=== PATIENT | male | born 1950 | race Caucasian/White ===

== ENCOUNTER 2019-09-18 10:13 | Day surgery (SDC) | payer MEDICARE, OTHER, SELFPAY ==
[2019-09-15 12:44] VITALS: BMI 29.0
--- NOTE | 2019-09-18 10:27 | P.ANESASSM_ITS ---
Pre-Anesthetic Assessment Pre-Anesthetic Assessment: Height/Weight: Height 1.8 m Weight 94.347 kg Preop Diagnosis: Colon CA screening Proposed Procedure: Operation Date: 09/18/19 12:00 Proposed Procedures p Colonoscopy 81614 Z12.11(Not Applicable) - Tex Barrientos MD Exam: Pre-Anes Outpt Exam: alert and oriented x 3 Airway: Submandibular: WNL Cervical ROM: WNL MP: 2 Dentition: False CV/HEM: CV/HEM: Angina (Stable), CAD and HTN Comments: CABG '10 NTG 3 weeks, Mable aware ,Mable saw 2 weeks no changes/concerns : : Chronic renal failure Comments: Dialysis 4 months, peritoneal last night Metabolic: Metabolic: DM Neuropsych: Comments: s/p bilateral CEAs PFSH Anesthesia PFSH: Social History Smoking and tobacco status: never smoked Second hand smoke exposure: No Alcohol intake: never Adopted: No Caregiver/support person: Yes Lives independently: Yes Household members: spouse Housing: House Marital status: Highest education level completed: High School Graduate service: Yes (3 years ) Current occupational status: retired History of recent travel: No Sexually active: No Current gender identity: Male María/Scientologist: Zoroastrian Special maría needs: No Agree to transfusion: No Financial difficulty paying for basics: Decline to Answer Data Anesthesia Cardiac Studies: No Data to Display
[2019-09-18 11:00] VITALS: BP 149/71; PULSE 60; RESP 18; TEMP 36.5; O2SAT 96
[2019-09-18] MEDS: sodium chloride 0.9% 1,000 ML 30 ML (11:10)
--- NOTE | 2019-09-18 11:56 | PM.HPUD ---
H&P update H&P Update: DATE OF SURGERY/PROCEDURE: 09/18/19 DATE H&P PERFORMED: 09/07/19 H&P UPDATE INFORMATION: H&P completed within last 30 days and No changes to prior documentation PREOP DIAGNOSIS: Screening colonoscopy PLANNED PROCEDURE: Operation Date: 09/18/19 12:00 Proposed Procedures p Colonoscopy 03553 Z12.11(Not Applicable) - Tex Barrientos MD Full H&P Perinent History: Medical/Surgical History: Medical History (Updated 09/08/19 @ 09:25 by Tex Barrientos MD) CAD (coronary artery disease) (Acute) COPD (chronic obstructive pulmonary disease) (Acute) Diabetes (Acute) Dyslipidemia (Acute) ESRD (end stage renal disease) (Acute) GERD (gastroesophageal reflux disease) (Acute) Hepatitis C (Acute) Hypertension (Acute) Neuropathy (Acute) Peritoneal dialysis status (Acute) started april of 2019 Sleep apnea (Acute) Family History: Family History (Updated 09/07/19 @ 11:02 by Carmina Longoria RN) Denies family history of Anesthesia complication Bleeding disorder Social History: Social History Smoking and tobacco status: never smoked Second hand smoke exposure: No Alcohol intake: never Adopted: No Caregiver/support person: Yes Lives independently: Yes Household members: spouse Housing: House Marital status: Highest education level completed: High School Graduate service: Yes (3 years ) Current occupational status: retired History of recent travel: No Sexually active: No Current gender identity: Male María/Anglican: Bahai Special maría needs: No Agree to transfusion: No Financial difficulty paying for basics: Decline to Answer
[2019-09-18 12:22] LABS: Glucose Point of Care 76 mg/dL (70-110)
[2019-09-18 12:37] VITALS: BP 125/60; PULSE 53; RESP 16; TEMP 36.5; O2SAT 98
[2019-09-18 12:50] VITALS: BP 129/61; PULSE 56; RESP 18; O2SAT 98
== END 2019-09-18 13:05 | disposition home or self-care (01) ==
PROVIDERS: Family Provider Family Medicine; PCP Family Medicine; Visit Provider Surgery
PROC: 0DJD8ZZ Inspection of Lower Intestinal Tract, Via Natural or Artificial Opening Endoscopic (ICD-10-PCS; CPT 45378; principal; 2019-09-18 12:00)
DX: Z12.11 Encounter for screening for malignant neoplasm of colon (principal); I25.10 Atherosclerotic heart disease of native coronary artery without angina pectoris; J44.9 Chronic obstructive pulmonary disease, unspecified; K21.9 Gastro-esophageal reflux disease without esophagitis; B17.10 Acute hepatitis C without hepatic coma; E11.40 Type 2 diabetes mellitus with diabetic neuropathy, unspecified; E11.22 Type 2 diabetes mellitus with diabetic chronic kidney disease; I12.0 Hypertensive chronic kidney disease with stage 5 chronic kidney disease or end stage renal disease; N18.6 End stage renal disease; G47.30 Sleep apnea, unspecified; Z95.1 Presence of aortocoronary bypass graft; Z79.4 Long term (current) use of insulin
CPT/HCPCS: 12345; 36416; 82962; G0121; J0694; J2001; J7030

== ENCOUNTER 2019-10-19 14:08 | Inpatient (IN) | payer MEDICARE, OTHER, SELFPAY ==
[2019-10-19] VITALS (11 sets, daily range): BP systolic 127–147; BP diastolic 63–77; PULSE 67–93; RESP 17–24; TEMP 36.9–37.2; O2SAT 94–97; BMI 29.7
--- NOTE | 2019-10-19 14:59 | ECG_ITS ---
Measurements Intervals [place] Rate: 69 P: 48 HI: 135 QRS: -70 QRSD: 137 T: 157 QT: 468 QTc: 502 SINUS RHYTHM RIGHT BUNDLE BRANCH BLOCK [120+ ms QRS DURATION, UPRIGHT V1, 40+ ms S IN I I/aVL/V4/V5/V6] LEFT ANTERIOR FASCICULAR BLOCK [QRS AXIS <= -45, QR IN I, RS IN II] SEPTAL MYOCARDIAL INFARCTION , OF INDETERMINATE AGE [40+ ms Q WAVE IN V1/V2] MODERATE T-WAVE ABNORMALITY, CONSIDER LATERAL ISCHEMIA [-0.1+ mV T WAVE IN I/ I/aVL/V5/V6] Compared to ECG 02/21/2015 09:57:13 Right bundle-branch block now present Left anterior fascicular block now present Myocardial infarct finding now present Possible ischemia still present Electronically Signed On 10-19-2019 16:59:50 ETHNOARCHAEOLOGIST by Larry Akins M.D. [email or web address]
--- NOTE | 2019-10-19 14:59 | XR_ITS ---
WS: [id number] XR chest 1V portable [id number] REASON FOR EXAM: cough FINDINGS: Along the mid lateral right chest is calcification of the pleura. There is evidence of a density in the region of the minor fissure suggesting a pseudotumor or low-gra de pneumonia. There is cardiomegaly seen There is previous coronary bypass changes. The hilum and apices are normal. XR/XR chest 1V portable 00000 IMPRESSION: Calcification of the pleura along the lateral mid chest A round density most likely an infiltrate versus pseudotumor adjacent to the mi nor fissure on the right.
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
[2019-10-19 15:37] LABS: ABG PH Result 7.41 (7.35-7.45); Arterial Blood Gas Hematocrit 33.6 % (42-52); Base Excess ABG -3.7 mmol/L (-2.0-2.0); Blood Gas Allen Test Pos; Blood Gas Sample Site Brachial, left; Blood Gas Sample Type Arterial; HCO3 ABG 20.2 mmol/L (22-26); Oxygen Device ROOM AIR; PO2 ABG 65.2 mmHg (80.0-100.0)
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
[2019-10-19 16:09] LABS: Influenza A by IFA Negative (Negative); Influenza B by IFA Negative (Negative)
[2019-10-19 16:34] LABS: Basophils % 0.4 %; Eosinophils # 0.1 10^3/uL (0.0-0.8); Hematocrit 29.6 % (42.0-52.0); Hemoglobin 9.4 g/dL (11.7-16.6); Lymphocytes % 18.5 %; Mean Corpuscular HGB Conc 31.8 g/dL (30.0-36.0); Mean Corpuscular Hemoglobin 28.7 pg (28.0-34.0); Mean Corpuscular Volume 90.5 fL (80-94); Mean Platelet Volume 10.7 fL (7.4-10.4); Monocytes # 0.3 10^3/uL (0.2-0.9); Monocytes % 5.8 %; Neutrophils # 3.8 10^3/uL (1.8-7.7); Neutrophils % 73.9 %; Nucleated Red Blood Cells % 0 %; Platelet Count 214 10^3/cmm (130-400); Red Blood Count 3.27 10^6/uL (4.1-5.3); Red Cell Distribution Width 13.4 % (12.1-15.1); White Blood Count 5.2 10^3/uL (4.0-10.0)
[2019-10-19 16:56] LABS: Troponin(5th) Baseline 501 ng/mL (0-15)
--- NOTE | 2019-10-19 16:59 | ECG_ITS ---
Measurements Intervals [place] Rate: 67 P: 39 AL: 144 QRS: -63 QRSD: 137 T: 147 QT: 462 QTc: 489 SINUS RHYTHM RIGHT BUNDLE BRANCH BLOCK LEFT ANTERIOR FASCICULAR BLOCK SEPTAL MYOCARDIAL INFARCTION , OF INDETERMINATE AGE MODERATE T-WAVE ABNORMALITY, CONSIDER LATERAL ISCHEMIA Compared to ECG 10/19/2019 15:30:07 No significant changes Electronically Signed On 10-20-2019 15:52:48 PUBLIC WORKS SUPERVISOR by Nella Montoya M.D. [email or web address]
[2019-10-19 17:16] LABS: Alanine Aminotransferase 21 U/L (0-41); Albumin Level 4.3 g/dL (3.5-5.2); Alkaline Phosphatase 81 IU/L (40-130); Anion Gap 24.5 (5-19); Aspartate Amino Transferase 20 U/L (0-40); Blood Urea Nitrogen 76 mg/dL (8-23); Carbon Dioxide 17 mmol/L (22-29); Chloride 100 mmol/L (98-107); Globulin 2.4 g/dL (1.3-4.6); Glomerular Filtration Rate 7.4 mL/min (90-130); Glucose 187 mg/dL (65-115); Potassium 4.5 mmol/L (3.5-5.1); Sodium 137 mmol/L (136-145); Total Bilirubin 0.7 mg/dL (0.15-1.2); Total Protein 6.7 g/dL (6.6-8.7)
--- NOTE | 2019-10-19 17:22 | PC.NURSE ---
Lab called to report a critical gasateria attendant of 7.4
[2019-10-19] MEDS: aspirin 325 mg Tablet PO (17:42)
[2019-10-19] MEDS: nitroglycerin 1 gm/inch oint Pkt 1 INCH TOPICAL (17:43)
[2019-10-19 17:51] LABS: NT Pro B Type Natriuretic Pept > 35000 pg/mL (0-125)
--- NOTE | 2019-10-19 18:37 | PM.CONSULT ---
Providers/Reason For Consult Consulting Physican/Specialty*: Dr. Montoya, cardiology Reason for Consult*: Worsening shortness of breath and chest discomfort, history of coronary artery disease. Attending Physician: Mark Vinson MD Primary Care Provider: Dany Dietz Jr, MD History of Present Illness History of Present Illness Sherwin Yates is a 69 year old male with past medical history of coronary artery disease status post bypass surgery by Dr. Metz in 2009, end-stage renal disease on peritoneal dialysis currently being evaluated for renal transplant at [facility], carotid artery disease status post bilateral carotid endarterectomy, COPD, obstructive sleep apnea on CPAP, gastroesophageal reflux disease history of hepatitis C, hypertension, diabetes mellitus and history of CVA. As a part of transplant work-up, patient underwent stress testing this Wednesday. He had flu like symptoms last Wednesday with fever, chills, runny nose and then Wednesday onwards he started having worsening SOB. He complains of leg edema, exertional dyspnea even when walking to the bathroom and orthopnea that progressively worsened in last 3-4 days. He has been sleeping in recliner for last week. He also had intermittent episodes of exertional chest pains over the past week. He resisted coming to the hospital and today came to the ER after his family made him. EKG showed sinus rhythm, RBBB, LAFB and T wave abnormality, concerning for lateral ischemia. Baseline troponin >500. I have been asked to evaluate the patient and assist in further management. Review of Systems Const: Denies: fever or chills Eyes: Denies: blurry vision ENMT: Denies: nasal congestion or nasal obstruction Card: Reports: chest pain, swelling of feet/ankles, shortness of breath on exertion and shortness of breath when lying down; Denies: irregular heart rhythm Resp: Denies: shortness of breath, productive cough or non-productive cough GI: Denies: abdominal pain, nausea, vomiting, vomiting blood, blood in stool or black tarry stool : Denies: difficulty urinating, painful urination or blood in urine Musc: Reports: extremity swelling Skin/Breast: Denies: rash Neuro: Denies: numbness in extremities, weakness in extremities or slurred speech Psych: Denies: anxiety or depression Endo: Denies: change in body appearance Lanre/Lymph: Denies: petechiae or purpura All/Imm: Denies: throat swelling or tongue swelling Meds/Allergies Home Medications and Allergies Home Medications Medication Instructions Recorded Confirmed Type ascorbic acid (vitamin C) 100 mg PO DAILY 09/05/19 10/19/19 History doxazosin 1 mg tablet 2 mg PO BID tab 09/05/19 10/19/19 History famotidine 20 mg tablet 20 mg PO DAILY 09/05/19 10/19/19 History furosemide 40 mg tablet 40 mg PO DAILY 09/05/19 10/19/19 History insulin glargine 100 unit/mL 20 unit SUBCUT DAILY 09/05/19 10/19/19 History subcutaneous solution metoprolol tartrate 50 mg tablet 50 mg PO BID 09/05/19 10/19/19 History nifedipine 90 mg tablet,extended 90 mg PO BID 09/05/19 10/19/19 History release nitroglycerin 0.4 mg sublingual 0.4 mg SUBLINGUAL Q5M PRN 09/05/19 10/19/19 History tablet sevelamer HCl 800 mg tablet 800 mg PO TID tab 09/05/19 10/19/19 History simvastatin 40 mg tablet 40 mg PO DAILY 09/05/19 10/19/19 History spironolactone 25 mg tablet 50 mg PO BID 09/05/19 10/19/19 History terazosin 5 mg capsule 5 mg PO DAILY 09/05/19 10/19/19 History clonidine HCl 0.3 mg PO BID PRN 09/15/19 10/19/19 History minoxidil 2.5 mg PO BID 10/19/19 10/19/19 History pregabalin [Lyrica] 25 mg PO BID 10/19/19 10/19/19 History vit B cqslpez-M-tefoq ac-zinc 1 tab PO DAILY 10/19/19 10/19/19 History [RenaPlex] Allergies Allergy/AdvReac Type Severity Reaction Status Date / Time duloxetine [From Cymbalta] Allergy Unknown Unknown Verified 10/19/19 20:33 acetaminophen Allergy Unknown Verified 10/19/19 20:33 trazodone Allergy ADR-Cramping Verified 10/19/19 20:33 of the Muscles PFSH Acute PFSH: Medical History CAD (coronary artery disease) COPD (chronic obstructive pulmonary disease) Diabetes Dyslipidemia ESRD (end stage renal disease) GERD (gastroesophageal reflux disease) Hepatitis C Hypertension Neuropathy Peritoneal dialysis status started april of 2019 Sleep apnea Surgical History History of carotid endarterectomy Bilateral History of colonoscopy with polypectomy Patient had a normal colonoscopy he will not require further screening colonoscopies due to his age of 69. History of coronary artery bypass graft Family History Denies family history of Anesthesia complication Bleeding disorder Social History Smoking and tobacco status: never smoked Second hand smoke exposure: No Alcohol intake: never Adopted: No Caregiver/support person: Yes Lives independently: Yes Household members: spouse Housing: House Marital status: Highest education level completed: High School Graduate service: Yes (3 years ) Current occupational status: retired History of recent travel: No Sexually active: No Current gender identity: Male María/Jainism: Latter-Day Special maría needs: No Agree to transfusion: No Financial difficulty paying for basics: Decline to Answer Vitals/I&O/Wt Last Vital Signs Temp 99.0 F 10/19/19 14:26 Pulse 70 10/19/19 14:26 Resp 17 10/19/19 16:09 BP 131/67 10/19/19 17:00 Pulse Ox 97 10/19/19 17:00 Weight last 48 hrs Weight 207 lb Physical Exam Narrative: EXAM NARRATIVE: Gen: NAD, sitting propped up in bed Neck: JVD+ HEENT: PERRL, No pallor or icterus RS: Decreased breath sounds bilateral bases (L>R) No wheezes, rales or rhonchi, reproducible left lower chest pain present CVS: S1, S2+, No murmur, rub or gallop appreciated GI: soft, NT, ND+, distended 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: AAOx 3, NO FND Ext: trace-1+ edema bilateral legs; left upper extremity deformity+ Data Labs: Other Labs: Laboratory Tests 10/19/19 10/19/19 10/19/19 15:25 16:26 16:26 ABG pH 7.41 ABG pCO2 32.0 L ABG pO2 65.2 L ABG HCO3 20.2 L Hematocrit 33.6 L O2 Delivery Device Room air Troponin T Baselin e 501 H* NT-Pro-B Natriuret Pep > 00222 H Micro: Micro: Microbiology 10/19/19 16:26 Blood Culture - Pr eliminary Blood SPECIMEN [facility] 10/19/19 15:25 Blood Culture - Pr eliminary Blood SPECIMEN [facility] Imaging^: Carotid Duplex (03/16/19): Radiologist's impression: CONCLUSIONS? ?Prior Bilateral CEA's? ?No recurrent stenosis.? ?Right ICA stenosis <50%.?? ?Left ICA stenosis <50%.?? ?Normal antegrade Doppler flow noted in the left vertebral?? ?artery.?? ?Right vertebral not visualized? Lexiscan MPI (03/14/18): Radiologist's impression: PERFUSION FINDINGS? ?Patchy area of decreased tracer uptake? noted from basal to anterior wall?? ?suggestive of old myocardial infarction versus scarring or artifact? ?FUNCTIONAL RESULTS? (calculated via Gated SPECT)? ? Stress Image LV EF (%):??? 68? ? Stress EDV (mL):93? TID:? 0.82? ? Stress ESV (mL):30? ? Rest Image LV EF (%): 68? ?FUNCTIONAL FINDINGS:? ?There is normal left ventricular systolic function.? ?IMPRESSIONS? ?Medium-size area of patchy decreased tracer uptake? noted from basal to?? ?anterior wall suggestive of old myocardial infarction versus artifact.? This?? ?study is negative for ischemia.? There is no wall motion abnormality.? EKG?? ?segment will be documented separately? CT Chest: Radiologist's impression: IMPRESSION: 1. There is reticular and mild ground-glass opacity in the lungs right greater than left compatible with mild pneumonitis/interstitial edema and volume loss. 2. Small pleural effusions left greater than right. There is loculated fluid in the right fissure creating a pseudo tumor. 3. Volume loss and mild ground-glass pneumonitis is noted. 4. There is mild ascites. EKG^: EKG 1: My Interpretation: Sinus rhythm. Right bundle branch block. Left anterior fascicular block. Moderate T wave abnormality consider, lateral ischemia. When compared to his old EKGs patient has had ST depressions and T wave inversions aVL and V4 even his prior EKGs intermittently. T wave inversion in 1, V5 and V6 appear to be new. A&P Assessment and plan (1) Congestive heart failure: SOB and chest pain likely in setting of decompensated CHF and fluid overload. -continue lasix 40 mg IV twice a day. Received Lasix 60 mg IV yesterday. He is still making urine and continue with PD. -f/u on echo. Status: Acute Qualifiers: Heart failure type: unspecified Code(s): I50.9 - Heart failure, unspecified (2) Chest pain: Exertional dyspnea with chest pain likely in setting of decompensated CHF. -I do not think this is ACS. However, continue to trend troponin and serial EKG's and further management based on that. -Continue aspirin, statin, metoprolol and nitroglycerin as needed. -Follow-up on echocardiogram. Status: Acute Code(s): R07.9 - Chest pain, unspecified (3) ESRD (end stage renal disease): PD as per nephrology Status: Acute Code(s): N18.6 - End stage renal disease (4) CAD (coronary artery disease): History of Coronary artery bypass grafting times three with left in situ internal mammary artery graft to the left anterior descending coronary artery and reverse saphenous vein bypass graft from the aorta to the posterior descending coronary artery and reverse saphenous vein bypass graft from the aorta to the diagonal II coronary artery in 05/2010. Status: Acute Qualifiers: Coronary Disease-Associated Artery/Lesion type: bypass graft [place] vs. transplanted heart: nome heart Code(s): I25.10 - Atherosclerotic heart disease of [place] coronary artery without angina pectoris (5) Dyslipidemia: Status: Acute Code(s): E78.5 - Hyperlipidemia, unspecified (6) Hypertension: Status: Acute Qualifiers: Hypertension type: essential hypertension Qualified Code(s): I10 - Essential (primary) hypertension Code(s): I10 - Essential (primary) hypertension (7) Diabetes: Status: Acute Code(s): E11.9 - Type 2 diabetes mellitus without complications Additional A&P Information Non-ST elevation HI with elevated troponin likely type 2in setting of d CHF and ESRD. [facility] [place] Consult Attestations Medical Necessity Statement: Patient needs hospital stay for management of decompensated congestive heart failure and chest pain. 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 transplanted heart: nome heart Dyslipidemia E78.5 Hypertension I10 Hypertension type: essential hypertension Diabetes E11.9
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
[2019-10-19 19:07] LABS: Troponin 5 2HR Delta -23.7 ABS# (0-10)
[2019-10-19 19:08] LABS: Troponin 5 2HR 477.3 ng/mL (0-15)
--- NOTE | 2019-10-19 19:09 | PC.NURSE ---
critical trop 477.3 reported by Hetal in lab at this time
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
--- NOTE | 2019-10-19 19:29 | PC.NURSE ---
Introduced self to patient and initiated vital signs. Patient presents A&O x 4. NAD, ABCs intact, MAEW and agreeable to treatment. Respirations are even and unlabored. Pt states that the chief complaint for the ER visit today is due to shortness of breath, but SOB has resolved and is feeling better. IV observed in left AC and flushed for patency. Pt denies any vision disturbances or lightheadedness. Bed left in lowest position in semi-fowlers with side rails up. Reassured patient of needs and will continue to monitor.
--- NOTE | 2019-10-19 20:01 | PC.NURSE ---
d-stick = 144 mg/dl
[2019-10-19 20:02] LABS: Glucose Point of Care 144 mg/dL (70-110)
[2019-10-19] MEDS: heparin 5,000 unit/mL INJ 1 mL 5000 UNIT SUBCUT (20:34)
[2019-10-19] MEDS: atorvastatin 40 mg Tablet 20 MG PO (20:34)
[2019-10-19] MEDS: FUROsemide 10 mg/mL SDV 10mL 60 MG IVP (20:35)
--- NOTE | 2019-10-19 20:59 | ECG_ITS ---
Measurements Intervals [place] Rate: 82 P: 44 MD: 140 QRS: -66 QRSD: 134 T: 124 QT: 424 QTc: 497 SINUS RHYTHM RIGHT BUNDLE BRANCH BLOCK LEFT ANTERIOR FASCICULAR BLOCK LEFT VENTRICULAR HYPERTROPHY AND ST-T CHANGE Compared to ECG 10/19/2019 15:30:07 Left ventricular hypertrophy now present ST (T wave) deviation now present T-wave abnormality no longer present Possible ischemia no longer present Electronically Signed On 10-20-2019 15:39:31 FISHER WEIR by Nella Montoya M.D. [id number]
[2019-10-19 21:53] LABS: Glucose Point of Care 137 mg/dL (70-110)
--- NOTE | 2019-10-19 22:22 | PC.NURSE ---
Patient arrived to the floor from the ED after report was received via phone. Patient is alert and oriented and ambulatory. Patient is not complaining of any pain or shortness of breath. VSS. Patient's dialysate fluid drained per order. Patient stated I hope I don't get peritonitis. Nurse asked why. Patient states you didn't clean it. Nurse educated patient that it was cleaned and he asked with what I don't see anything. Nurse showed him the bleach wipe and educated. Patient states oh, that doesn't look anything like what I use at home. JOSE [place] at bedside as well. Will continue to monitor.
[2019-10-19 22:33] LABS: C Reactive Protein 17.7 mg/L (0.0-4.9)
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
[2019-10-19 22:44] LABS: Thyroid Stimulating Hormone 2.02 uIU/mL (0.27-4.20)
[2019-10-19 22:46] LABS: Troponin 5 6HR 517.5 ng/mL (0-15); Troponin 5 6HR Delta 16.5 ng/L (0-12)
--- NOTE | 2019-10-19 22:52 | PC.NURSE ---
DR SANCHEZ WAS NOTIFIED OF A CRITICAL TROPONIN. DR SAID THAT THEY WILL LOOK INTO IT. WILL CONTINUE TO MONITOR.
[2019-10-19 23:32] LABS: Platelet Count 230 10^3/cmm (130-400)
[2019-10-19 23:38] LABS: Partial Thromboplastin Time 31.6 SECONDS (23.9-36.7)
[2019-10-19] MEDS: heparin drip 25,000 UNIT/500 ML PREMIX 26 UNIT IV (23:43)
[2019-10-19] MEDS: cloNIDine 0.1 mg Tablet 0.2 MG PO (23:57)
[2019-10-20] VITALS (66 sets, daily range): BP systolic 103–159; BP diastolic 52–81; PULSE 54–95; RESP 13–37; TEMP 36.5–37; O2SAT 89–99
[2019-10-20] MEDS: nitroglycerin 0.4 mg sublingual Tablet SUBLINGUAL ×3 (00:38→04:06)
--- NOTE | 2019-10-20 00:44 | PC.NURSE ---
Patient was complaining of chest pain 3/. Nitro SL given and patient stated his chest pain is gone now. VSS. Will continue to monitor.
[2019-10-20 00:53] LABS: Procalcitonin 0.15 ng/mL (0-0.5)
--- NOTE | 2019-10-20 01:32 | ECG_ITS ---
Measurements Intervals [place] Rate: 81 P: 11 CA: 134 QRS: -67 QRSD: 146 T: 111 QT: 439 QTc: 511 SINUS RHYTHM RIGHT BUNDLE BRANCH BLOCK LEFT ANTERIOR FASCICULAR BLOCK LEFT VENTRICULAR HYPERTROPHY AND ST-T CHANGE T WAVE ABNORMALITY, CONSIDER LATERAL ISCHEMIA Compared to ECG 10/19/2019 15:30:07 Left ventricular hypertrophy now present Electronically Signed On 10-20-2019 16:47:56 BOAT GARNISHER by Nella Montoya M.D. [id number]
--- NOTE | 2019-10-20 01:35 | PC.NURSE ---
patient complained of chest pain at a 3/10 again, bp was taken at 159/72, hr 76. One sublingual nitro given, pain gone in 3 minutes, patient stated no pain Vitals taken, hr 80, bp 103/52, resp 23, o2 92. EKG ordered to check for changes.
--- NOTE | 2019-10-20 01:55 | PC.NURSE ---
Dr. Aguirre notified of patient having a second episode of chest pain. SL nitro relieved chest pain this time as well.
--- NOTE | 2019-10-20 04:07 | PC.NURSE ---
This is the worst chest pain so far 11/23, Nitro given, beginning blood pressure was 148/78.
--- NOTE | 2019-10-20 04:11 | PC.NURSE ---
Dr. Aguirre notified of patient experiencing a third episode of chest pain stating this is the worst it has been
--- NOTE | 2019-10-20 04:18 | PC.NURSE ---
Dr. Aguirre came to room to see patient. Blood pressure is 130/81. Nitropaste 1 inch q6 hour ordered.
[2019-10-20] MEDS: nitroglycerin 1 gm/inch oint Pkt 1 INCH TOPICAL ×4 (04:23→21:30)
[2019-10-20 06:15] LABS: Basophils % 0.3 %; Eosinophils # 0.1 10^3/uL (0.0-0.8); Hematocrit 29.6 % (42.0-52.0); Hemoglobin 9.7 g/dL (11.7-16.6); Lymphocytes # 0.8 10^3/uL (0.8-4.8); Lymphocytes % 13.5 %; Mean Corpuscular HGB Conc 32.8 g/dL (30.0-36.0); Mean Corpuscular Hemoglobin 29.1 pg (28.0-34.0); Mean Corpuscular Volume 88.9 fL (80-94); Mean Platelet Volume 10.5 fL (7.4-10.4); Monocytes # 0.3 10^3/uL (0.2-0.9); Monocytes % 5.2 %; Neutrophils # 4.6 10^3/uL (1.8-7.7); Neutrophils % 79.7 %; Nucleated Red Blood Cells % 0 %; Platelet Count 219 10^3/cmm (130-400); Red Blood Count 3.33 10^6/uL (4.1-5.3); Red Cell Distribution Width 13.1 % (12.1-15.1); White Blood Count 5.8 10^3/uL (4.0-10.0)
[2019-10-20 06:27] LABS: Partial Thromboplastin Time 68.9 SECONDS (23.9-36.7)
[2019-10-20 06:33] LABS: Glucose Point of Care 171 mg/dL (70-110)
[2019-10-20 06:37] LABS: Alanine Aminotransferase 25 U/L (0-41); Albumin Level 4.1 g/dL (3.5-5.2); Alkaline Phosphatase 78 IU/L (40-130); Anion Gap 22.9 (5-19); Aspartate Amino Transferase 26 U/L (0-40); Blood Urea Nitrogen 69 mg/dL (8-23); Calcium 10.2 mg/dL (8.5-10.5); Carbon Dioxide 19 mmol/L (22-29); Chloride 102 mmol/L (98-107); Cholesterol 98 mg/dL (0-200); Globulin 3.6 g/dL (1.3-4.6); Glomerular Filtration Rate 7.2 mL/min (90-130); Glucose 181 mg/dL (65-115); HDL Cholesterol 28 mg/dL (60-100); LDL Cholesterol Calculated 41 mg/dL (50-129); LDL HDL Ratio 1.46 RATIO (0.00-3.22); Magnesium 2.5 mg/dL (1.7-2.3); Phosphorus 5.3 mg/dL (2.5-4.5); Potassium 4.9 mmol/L (3.5-5.1); Sodium 139 mmol/L (136-145); Total Bilirubin 0.7 mg/dL (0.15-1.2); Total Protein 7.7 g/dL (6.6-8.7); Triglycerides 143 mg/dL (0-150)
[2019-10-20 07:02] LABS: Estmated Average Glucose 134; Hemoglobin A1C 6.3 % (4.0-6.0)
--- NOTE | 2019-10-20 07:12 | ECG_ITS ---
Measurements Intervals [place] Rate: 81 P: 21 AL: 134 QRS: -65 QRSD: 144 T: 110 QT: 425 QTc: 494 SINUS RHYTHM RIGHT BUNDLE BRANCH BLOCK LEFT ANTERIOR FASCICULAR BLOCK LEFT VENTRICULAR HYPERTROPHY AND ST-T CHANGE POSSIBLE LATERAL MYOCARDIAL INFARCTION, OF INDETERMINATE AGE Compared to ECG 10/19/2019 15:30:07 Left ventricular hypertrophy now present Myocardial infarct finding still present Electronically Signed On 10-20-2019 16:45:34 PICK AND SHOVEL WORKER by Nella Montoya M.D. [id number]
--- NOTE | 2019-10-20 07:26 | PC.NURSE ---
patient complaints of chest pain and pressure patient sitting on side of bed leaned forward labored breathing noted ekg obtained patient is unable to rate pain o2 placed by RT o2 89% on room air Heart rate 80 bp 154/[address] Vinson of events new orders to start nitro drip per protocol
--- NOTE | 2019-10-20 07:30 | PC.NURSE ---
upon entering room patient was sitting up on side of bed with elbows on knees with complaints of increased SOB and chest pain at first glance patient is having labored breathing and grasping chest EKG performed vital signs obtained Dr. pritchett notifed instructions given start nitro drip per protocol
--- NOTE | 2019-10-20 07:40 | PC.NURSE ---
Dr leggett at bedside verbal orders given to not start nitro drip and start imdur 30 mg PO daily
[2019-10-20] MEDS: doxazosin 4 mg Tablet 2 MG PO ×2 (08:47→17:54)
[2019-10-20] MEDS: aspirin 325 mg Tablet PO (08:47)
[2019-10-20] MEDS: FUROsemide 10 mg/mL SDV 4mL 40 MG IVP ×2 (08:48→17:55)
[2019-10-20] MEDS: famotidine 20 mg Tablet PO (08:48)
[2019-10-20] MEDS: metoprolol tartrate 25 mg Tablet PO (08:48)
[2019-10-20] MEDS: spironolactone 25 mg Tablet PO ×2 (08:48→17:54)
[2019-10-20] MEDS: pregabalin 25 mg Capsule PO ×2 (08:48→17:53)
[2019-10-20] MEDS: isosorbide mononitrate ER 30 mg Tablet PO ×2 (09:24→17:54)
[2019-10-20] MEDS: doxycycline 100 mg Tablet PO ×2 (11:05→21:29)
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
[2019-10-20 11:52] LABS: Glucose Point of Care 144 mg/dL (70-110)
--- NOTE | 2019-10-20 12:28 | PC.RESP ---
Patient given information on Pulmonary Rehab.
[2019-10-20] MEDS: Dianeal low Ca w/2.5% dex 2,000 mL Bag 2000 ML INTRAPERIT ×2 (13:20→22:43)
[2019-10-20 13:47] LABS: Partial Thromboplastin Time 83.1 SECONDS (23.9-36.7)
--- NOTE | 2019-10-20 15:53 | PM.PN ---
Subjective Subjective: Interval history: This morning patient sitting up in bed, family at bedside, states that he had couple episodes of chest pain overnight, a couple episodes of shortness of breath, no lightheadedness, no dizziness, no nausea, no vomiting Vitals/I&O/Wt Last Vital Signs Temp 98.3 F 10/20/19 15:00 Pulse 78 10/20/19 15:00 Resp 16 10/20/19 15:00 BP 134/69 10/20/19 15:00 Pulse Ox 98 10/20/19 15:00 10/20/19 10/20/19 10/20/19 06:59 14:59 22:59 Intake Total 400 / 400 240 / 240 Balance 400 / 400 240 / 240 Weight last 48 hrs Weight 93.894 kg Physical Exam Const: COMMON NORMALS: no apparent distress and oriented x3 HENMT: COMMON NORMALS: normocephalic HEAD & SCALP: normocephalic Neck/C-Spine: COMMON NORMALS: no JVD Resp: COMMON NORMALS: normal respiratory effort, no retractions, no use of accessory muscles and clear to auscultation bilaterally AUSCULTATION: clear to auscultation bilaterally Cardio: COMMON NORMALS: no JVD, regular rate, regular rhythm, S1 normal heart sound and S2 normal heart sound RATE: regular rate RHYTHM: regular rhythm HEART SOUNDS: S1 normal and S2 normal GI: COMMON NORMALS: normal to inspection, nondistended, normoactive bowel sounds, soft to palpation, non-tender, no hepatosplenomegaly, no masses and no bruits PALPATION: Yes soft and Yes no hepatosplenomegaly Extremity: COMMON NORMALS: normal capillary refill, no clubbing, cyanosis or edema, no calf tenderness and no pedal edema Neuro: COMMON NORMALS: oriented x3 Psych: COMMON NORMALS: mental status grossly normal Data : 10/20/19 06:05 10/20/19 06:05 Micro: Microbiology 10/19/19 15:25 Blood Culture - Preliminary Blood NEGATIVE TO DATE 10/19/19 16:26 Blood Culture - Preliminary Blood SPECIMEN COLLECTED A&P Assessment and plan (1) Acute respiratory failure: -Likely secondary to CHF exacerbation as BNP is 35,000, CT chest shows bilateral pleural effusions -Unlikely pneumonia, as no significant leukocytosis, pro-Arley is 0.5, -CT chest does show bilateral groundglass opacities, possibly atypical pneumonia versus viral infection, antibiotics for now, and as patient is doing well, patient is requiring 2 L of oxygen, lungs are clear Plan: -Cardiology and nephrology plan on increasing PD -Fluid restriction 1500 cc -Lasix 40 IV twice daily -I have added doxycycline as chest x-ray shows groundglass opacities,, cover for atypical pneumonia -Daily weights, monitor urine output -Potassium supplementation Status: Acute Code(s): J96.00 - Acute respiratory failure, unspecified whether with hypoxia or hypercapnia (2) Chest pain: -History of CABG x3 -Patient symptomatology seem concerning for cardiac etiology -Baseline troponin is 500, creatinine is 7.2 -EKG shows significant T wave inversions in lateral leads,and anterior leads -Last episode of chest pain was this morning -Last stress test in 2018 low probability of obstructive CAD stress test at [facility] shows low probability of CAD Plan: -Admit to cardiac IMC -Aspirin, statin, beta-casie -Baseline troponin V 500, delta 16.5, EKG does show T wave inversions in the lateral leads and anterior leads -Nitro for chest. -Echocardiogram pending -Cardiology and nephrology is planning on increasing PD dialysis, if patient continues to have chest pain, plan for cardiac catheterization tomorrow morning Status: Acute Code(s): R07.9 - Chest pain, unspecified (3) Peritoneal dialysis status: -Nephrology has been consulted for peritoneal dialysis Status: Acute Code(s): Z99.2 - Dependence on renal dialysis (4) Hypertension: Status: Acute Qualifiers: Hypertension type: essential hypertension Qualified Code(s): I10 - Essential (primary) hypertension Code(s): I10 - Essential (primary) hypertension (5) ESRD (end stage renal disease): Status: Acute Code(s): N18.6 - End stage renal disease (6) Dyslipidemia: Status: Acute Code(s): E78.5 - Hyperlipidemia, unspecified (7) Diabetes: -Low-dose sliding scale, plus glargine 20 units daily Status: Acute Code(s): E11.9 - Type 2 diabetes mellitus without complications (8) CAD (coronary artery disease): CABG x3 Status: Acute Qualifiers: Coronary Disease-Associated Artery/Lesion type: bypass graft [place] vs. transplanted heart: [place] heart Code(s): I25.10 - Atherosclerotic heart disease of [place] coronary artery without angina pectoris Attestations Medical Necessity Statement*: She requires hospitalization due to acute respiratory failure, chest pain Coding Level of Care Code Acute Principal Associate for Ines Fwd Diagnoses Acute respiratory failure J96.00 Chest pain R07.9 Peritoneal dialysis status Z99.2 Hypertension I10 Hypertension type: essential hypertension ESRD (end stage renal disease) N18.6 Dyslipidemia E78.5 Diabetes E11.9 CAD (coronary artery disease) I25.10 Coronary Disease-Associated Artery/Lesion type: bypass graft [place] vs. transplanted heart: [place] heart
--- NOTE | 2019-10-20 16:17 | P.PN_ITS ---
Subjective Subjective: Interval history: Overnight it seems like patient and has had intermittent episodes of shortness of breath with chest discomfort. Patient states he was unable to get comfortable and had to lean forward in his bed to catch his breath. No productive cough. Orthopnea present. He was started on heparin drip. He has not urinated much overnight. Records obtained from [facility] in [place]. Rest stress PET rMPI showed nonischemic EKG response with no definitive ischemia or infarction. Poor technical quality images. Large with globally hypokinetic left ventricle with ejection fraction of 36%. Large right ventricle that was globally hypokinetic as well. At the time of evaluation, patient complains of dull chest discomfort and is sitting comfortably in bed. He mentions today that over the past month his episodes of chest discomfort have progressively increased and he has been using more nitroglycerin than normal. The symptoms are usually exertional and used to happen even prior to past week. Medications: Reviewed: Yes Medication Review Details: Current Medications Aspirin (Aspirin) 325 mg PO DAILY [facility] Last Admin: 10/20/19 08:47 Dose: 325 mg Documented by: Atorvastatin Calcium (Lipitor) 20 mg PO BEDTIME [facility] Last Admin: 10/19/19 20:34 Dose: 20 mg Documented by: Clonidine HCl (Catapres) 0.2 mg PO BID [facility] Last Admin: 10/20/19 08:48 Dose: Not Given Documented by: Dextrose (D50w) 25 ml IVP ONCE PRN; Protocol PRN Reason: hypoglycemia protocol Dextrose (D50w) 50 ml IVP PRN PRN; Protocol PRN Reason: hypoglycemia protocol Doxazosin Mesylate (Cardura) 2 mg PO BID [facility] Last Admin: 10/20/19 08:47 Dose: 2 mg Documented by: Doxycycline Monohydrate (Vibramycin) 100 mg PO Q12H [facility] Last Admin: 10/20/19 11:05 Dose: 100 mg Documented by: Famotidine (Pepcid Tab) 20 mg PO DAILY [facility] Last Admin: 10/20/19 08:48 Dose: 20 mg Documented by: Furosemide (Lasix) 40 mg IVP BID [facility] Last Admin: 10/20/19 08:48 Dose: 40 mg Documented by: Glucagon (Glucagen) 1 mg IM ONCE PRN; Protocol PRN Reason: Adult Acute Hypoglycemia Prot. Heparin Sodium (Beef Lung) (Heparin) 0 unit IV PRN PRN; Protocol PRN Reason: Heparin weight-base protocol Dextrose (D5w) 500 mls @ 100 mls/hr IV ONCE PRN; Protocol PRN Reason: Adult Acute Hypoglycemia Prot Heparin Sodium/Sodium Chloride (Heparin Drip) 25,000 unit in 500 mls @ 0 mls/hr IV .Q0M [facility]; Protocol Last Admin: 10/19/19 23:43 Dose: 13.85 unit/kg/hr, 26 mls/hr Documented by: Nitroglycerin/Dextrose (Nitroglycerin Drip) 50 mg in 250 mls @ 0 mls/hr IV .Q0M WOO; Protocol Insulin Aspart (Novolog) 0 unit SUBCUT TIDWM [facility]; Protocol Last Admin: 10/20/19 13:01 Dose: 2 unit Documented by: Insulin Glargine (Lantus) 20 unit SUBCUT DAILY [facility] Last Admin: 10/20/19 11:09 Dose: Not Given Documented by: Isosorbide Mononitrate (Imdur) 30 mg PO DAILY [facility] Last Admin: 10/20/19 09:24 Dose: 30 mg Documented by: Metoprolol Tartrate (Lopressor) 25 mg PO BID [facility] Last Admin: 10/20/19 08:48 Dose: 25 mg Documented by: Nitroglycerin (Nitrostat) 0.4 mg SUBLINGUAL Q5M PRN PRN Reason: Chest Pain Last Admin: 10/20/19 04:06 Dose: 0.4 mg Documented by: Nitroglycerin (Nitro-Bid) 1 inch TOPICAL Q6H [facility] Last Admin: 10/20/19 11:05 Dose: 1 inch Documented by: Non-Formulary Medication (Ascorbic Acid (Vitamin C)) 100 mg PO DAILY [facility] Non-Formulary Medication (Nifedipine) 45 mg PO BID [facility] Non-Formulary Medication (Vit B Vkyqvxh-B-Iafdp Ac-Zinc [Renaplex]) 1 tab PO DAILY [facility] Ondansetron HCl (Zofran) 4 mg IVP Q8H PRN PRN Reason: vomiting, or N/V if npo Peritoneal Dialysis Solution (Dianeal Low Ca W/2.5% Dex) 2,000 ml INTRAPERIT Q8H [facility] Last Admin: 10/20/19 13:20 Dose: 2,000 ml Documented by: Potassium Chloride (Klor-Con 10) 20 meq PO DAILY [facility] Last Admin: 10/20/19 08:48 Dose: 20 meq Documented by: Sevelamer Carbonate (Renvela) 800 mg PO TIDWM [facility] Last Admin: 10/20/19 11:09 Dose: Not Given Documented by: Spironolactone (Aldactone) 25 mg PO BID [facility] Last Admin: 10/20/19 08:48 Dose: 25 mg Documented by: Vitals/I&O/Wt Last Vital Signs Temp 98.3 F 10/20/19 16:00 Pulse 78 10/20/19 16:00 Resp 16 10/20/19 16:00 BP 134/69 10/20/19 16:00 Pulse Ox 98 10/20/19 16:00 10/20/19 10/20/19 10/20/19 06:59 14:59 22:59 Intake Total 400 / 400 240 / 240 Balance 400 / 400 240 / 240 Weight last 48 hrs Weight 207 lb Physical Exam Narrative: EXAM NARRATIVE: Gen: NAD, sitting propped up in bed Neck: JVD+ HEENT: PERRL, No pallor or icterus RS: Decreased breath sounds bilateral bases (L>R) No wheezes, rales or rhonchi, reproducible left lower chest pain present CVS: S1, S2+, No murmur, rub or gallop appreciated GI: soft, NT, ND+, distended TRAFFIC ANALYSIS TECHNICIAN: AAOx 3, NO FND Ext: trace-1+ edema bilateral legs; left upper extremity deformity+ Data : 10/20/19 06:05 10/20/19 06:05 Micro: Microbiology 10/19/19 15:25 Blood Culture - Preliminary Blood NEGATIVE TO DATE 10/19/19 16:26 Blood Culture - Preliminary Blood SPECIMEN COLLECTED hemoglobin A1c 6.3, magnesium 2.5. Baseline troponin T of 501, troponin T 120 min of 477, 6-hour troponin I of 517. NT proBNP of greater than 35,000; total cholesterol 98, triglyceride 143, LDL 41 and HDL 28. TSH of 2.02. A&P Assessment and plan (1) Chest pain: Exertional dyspnea with chest pain likely in setting of decompensated CHF. -I do not think this is ACS. Troponins have been flat ~500 and serial EKG's with upright T waves in V4 V5 V6 with mild ST depression. T waves in 1 and aVL continue to be inverted. -Continue aspirin, statin, metoprolol and nitroglycerin as needed. Continue with nitroglycerin patch and start on Imdur 30 mg twice a day. -Follow-up on echocardiogram. -In case patient continues to have exertional dyspnea and chest discomfort, after he has been adequately diuresed and dialyzed today, I will plan for cor onary angiogram tomorrow morning. Presently, patient is unable to lay flat for the procedure either. -Continue with heparin drip. Status: Acute Qualifiers: Chest pain type: unspecified Qualified Code(s): R07.9 - Chest pain, unspecified Code(s): R07.9 - Chest pain, unspecified (2) CAD (coronary artery disease): History of Coronary artery bypass grafting times three with left in situ internal mammary artery graft to the left anterior descending coronary artery and reverse saphenous vein bypass graft from the aorta to the posterior descending coronary artery and reverse saphenous vein bypass graft from the aorta to the diagonal II coronary artery in 05/2010. -Continue aspirin statin and metoprolol. Status: Acute Qualifiers: Coronary Disease-Associated Artery/Lesion type: bypass graft [place] vs. transplanted heart: [place] heart Associated angina: angina presence unspecified Qualified Code(s): I25.810 - Atherosclerosis of coronary artery bypass graft(s) without angina pectoris Code(s): I25.10 - Atherosclerotic heart disease of [place] coronary artery without angina pectoris (3) Congestive heart failure: SOB and chest pain likely in setting of decompensated CHF and fluid overload. -continue lasix 40 mg IV twice a day. Received Lasix 60 mg IV yesterday. He is still making urine and continue with PD as per Dr. Weiss. -f/u on echo. Status: Acute Qualifiers: Heart failure type: combined systolic and diastolic Heart failure chronicity: acute Qualified Code(s): I50.41 - Acute combined systolic (congestive) and diastolic (congestive) heart failure Code(s): I50.9 - Heart failure, unspecified (4) ESRD (end stage renal disease): PD as per nephrology Status: Acute Code(s): N18.6 - End stage renal disease (5) Dyslipidemia: Status: Acute Code(s): E78.5 - Hyperlipidemia, unspecified (6) Hypertension: Status: Acute Qualifiers: Hypertension type: essential hypertension Qualified Code(s): I10 - Essential (primary) hypertension Code(s): I10 - Essential (primary) hypertension (7) Diabetes: Status: Acute Code(s): E11.9 - Type 2 diabetes mellitus without complications Additional A&P Information Non-ST elevation [place] with elevated troponin likely type 2 in setting of d CHF and ESRD. -No ischemia on stress test from [facility] [place]. Follow-up on patient symptoms and echocardiogram. In case patient continues to be symptomatic once he is nearly euvolemic, I will proceed with coronary angiogram. Thank you for allowing me to participate in patient's care. Please feel free to call with questions or concerns. Attestations Medical Necessity Statement*: Needs hospital stay for management of chest pain. Coding Level of Care Code Acute Php Mysql Web Developer for Ines Matias Diagnoses Chest pain R07.9 Chest pain type: unspecified CAD (coronary artery disease) I25.810 Coronary Disease-Associated Artery/Lesion type: bypass graft [place] vs. transplanted heart: [place] heart Associated angina: angina presence unspecified Congestive heart failure I50.41 Heart failure type: combined systolic and diastolic Heart failure chronicity: acute ESRD (end stage renal disease) N18.6 Dyslipidemia E78.5 Hypertension I10 Hypertension type: essential hypertension Diabetes E11.9
[2019-10-20 16:18] LABS: Glucose Point of Care 189 mg/dL (70-110)
[2019-10-20] MEDS: metoprolol tartrate 25 mg Tablet 50 MG PO (17:54)
[2019-10-20] MEDS: sevelamer 800 mg Tablet PO (17:57)
--- NOTE | 2019-10-20 18:36 | PC.NURSE ---
contacted Dr. Vinson with patient request for something to help him sleep tonight Orders for Hydroxyzine 25 mg x1 at bedtime given
[2019-10-20] MEDS: heparin drip 25,000 UNIT/500 ML PREMIX 24 UNIT IV (19:16)
--- NOTE | 2019-10-20 19:41 | USCV_ITS ---
Sherwin Yates Age: 69 Gender: M : 1950 Exam Date: 10/20/2019 06:36 Ordering Phys: Mark Vinson MD Technologist: Jhon Bolton Exam Location[place] [facility] [place] Indication: SOB BP: 157 / 73 HR: 82 Rhythm: Sinus Technical Quality: Adequate MEASUREMENTS (Male / Female) Normal Values 2D ECHO LVOT Diameter 2.0 cm LV Ejection Fraction MOD 2C 53.2 % LV Ejection Fraction 2C AL 53.7 % LA Diameter 4.2 cm LA Width 4.4 cm LA Height 5.7 cm RA Width 4.5 cm RA Height 4.9 cm M-MODE LV Diastolic Diameter MM 7.1 cm 4.2 - 5.9 / 3.9 - 5.3 cm LV Systolic Diameter MM 5.8 cm LV Ejection Fraction MM Teich 37.6 % IVS Diastolic Thickness MM 0.6 cm 0.6 - 1.0 / 0.6 - 0.9 cm IVS Systolic Thickness MM 1.6 cm LVPW Diastolic Thickness MM 1.2 cm 0.6 - 1.0 / 0.6 - 0.9 cm LVPW Systolic Thickness MM 2.0 cm RV Diastolic Diameter MM 2.2 cm Aortic Annulus Diameter 3.4 cm LA Ao Ratio MM 1.2 MV E Point Septal Separation 1.6 cm DOPPLER AV Peak Velocity 227.0 cm/s LVOT Peak Velocity 96.0 cm/s AV Area Cont Eq vti 1.3 cm squared AV Area Cont Eq pk 1.4 cm squared MV E' Velocity 13.0 cm/s TR Peak Velocity 404.0 cm/s TR Peak Gradient 65.2 mmHg TV Peak E Velocity 147.0 cm/s Right Atrial Pressure 3.0 mmHg Pulmonary Artery Systolic Pressu 68.3 mmHg FINDINGS Left Ventricle Normal left ventricular cavity size. Normal left ventricular systolic function. Left ventricular ejection fraction is estimated at 55 %. No regional wall motion abnormalities. Right Ventricle The right ventricle is normal in size and function. Moderate pulmonary hypertension, RVSP 44 mmHg. Right Atrium The right atrium is normal in size. Left Atrium The left atrium is normal in size. Mitral Valve Moderately thickened mitral valve. No mitral valve stenosis. Moderate mitral valve regurgitation. Aortic Valve Severe aortic valve calcification. Moderate aortic valve stenosis, mean gradient 8.8 mmHg, KATY 1.3 cm squared. Tricuspid Valve Thickened tricuspid valve. Mild tricuspid valve regurgitation. Pulmonic Valve Structurally normal pulmonic valve without significant stenosis. There is no pulmonic regurgitation. Pericardium Normal pericardium without effusion. Aorta Normal ascending aorta dimension. CONCLUSIONS 1-Normal left ventricular cavity size. Normal left ventricular systolic function. Left ventricular ejection fraction is estimated at 55 %. No regional wall motion abnormalities. 2-The right ventricle is normal in size and function. Moderate pulmonary hypertension, RVSP 44 mmHg. 3-Severe aortic valve calcification. Moderate aortic valve stenosis, mean gradient 8.8 mmHg, KATY 1.3 cm squared. 4-Moderately thickened mitral valve. No mitral valve stenosis. Moderate mitral valve regurgitation. 5-Thickened tricuspid valve. Mild tricuspid valve regurgitation. 6-There is no pericardial effusion. 7-When compared to the prior echocardiogram dated 05/23/2015 there is moderate aortic stenosis now. Peng Funk MD (Electronically Signed) Final Date: 20 October 2019 16:57 S
[2019-10-20 20:44] LABS: Partial Thromboplastin Time 64.2 SECONDS (23.9-36.7)
[2019-10-20 20:55] LABS: Glucose Point of Care 184 mg/dL (70-110)
[2019-10-20] MEDS: atorvastatin 40 mg Tablet 20 MG PO (21:27)
[2019-10-20] MEDS: hyDROXYzine 25 mg Capsule PO (21:30)
--- NOTE | 2019-10-20 22:14 | PC.NURSE ---
assisted with emptying patient dialysis instillmentabout 2029, he had out 2300 grams. When we went to instill his next treatment, apparently the clamp wasnt placed exactly where it needed to be and the instillment drained into the patients out bag. Another bag is being warmed and instillment will proceed at 2230. with next draining to comments 0630.
[2019-10-21] VITALS (12 sets, daily range): BP systolic 122–168; BP diastolic 66–94; PULSE 66–77; RESP 18–23; TEMP 36.7–37.1; O2SAT 94–99
[2019-10-21 03:58] LABS: Basophils % 0.2 %; Eosinophils # 0.1 10^3/uL (0.0-0.8); Eosinophils % 1.7 %; Hematocrit 28.7 % (42.0-52.0); Hemoglobin 9.2 g/dL (11.7-16.6); Lymphocytes # 1.3 10^3/uL (0.8-4.8); Lymphocytes % 25.3 %; Mean Corpuscular HGB Conc 32.1 g/dL (30.0-36.0); Mean Corpuscular Hemoglobin 29.8 pg (28.0-34.0); Mean Corpuscular Volume 92.9 fL (80-94); Mean Platelet Volume 10.1 fL (7.4-10.4); Monocytes # 0.4 10^3/uL (0.2-0.9); Monocytes % 6.9 %; Neutrophils # 3.4 10^3/uL (1.8-7.7); Neutrophils % 65.3 %; Nucleated Red Blood Cells % 0 %; Platelet Count 237 10^3/cmm (130-400); Red Blood Count 3.09 10^6/uL (4.1-5.3); Red Cell Distribution Width 13.7 % (12.1-15.1); White Blood Count 5.2 10^3/uL (4.0-10.0)
[2019-10-21 04:19] LABS: Alanine Aminotransferase 20 U/L (0-41); Albumin Level 3.8 g/dL (3.5-5.2); Alkaline Phosphatase 68 IU/L (40-130); Anion Gap 20.6 (5-19); Aspartate Amino Transferase 19 U/L (0-40); Blood Urea Nitrogen 63 mg/dL (8-23); Carbon Dioxide 22 mmol/L (22-29); Chloride 103 mmol/L (98-107); Creatinine Clr Calc Pharmacy 10.4856; Globulin 3.4 g/dL (1.3-4.6); Glomerular Filtration Rate 7.1 mL/min (90-130); Glucose 183 mg/dL (65-115); Magnesium 2.4 mg/dL (1.7-2.3); Phosphorus 5.5 mg/dL (2.5-4.5); Potassium 4.6 mmol/L (3.5-5.1); Sodium 141 mmol/L (136-145); Total Bilirubin 0.6 mg/dL (0.15-1.2); Total Protein 7.2 g/dL (6.6-8.7)
[2019-10-21 04:52] LABS: Partial Thromboplastin Time 80.9 SECONDS (23.9-36.7)
[2019-10-21] MEDS: nitroglycerin 1 gm/inch oint Pkt 1 INCH TOPICAL ×2 (05:04→09:08)
[2019-10-21 06:27] LABS: Glucose Point of Care 165 mg/dL (70-110)
--- NOTE | 2019-10-21 07:09 | PC.NURSE ---
0650: patient complaining of cramping in the abdomen area. Stopped diasylate fluid that was being dialisysed by peritoneal dialysis. Notiified Dr. Vinson and per Dr. Vinson, stop the peritoneal dialysis and day nurse to contact nephrology. 0655 Went to patient's room to disconnect dialysate fluid and patient states, I am not hurting Please continue the peritoneal dialysis
[2019-10-21] MEDS: Dianeal low Ca w/2.5% dex 2,000 mL Bag 2000 ML INTRAPERIT (07:18)
[2019-10-21] MEDS: FUROsemide 10 mg/mL SDV 4mL 40 MG IVP ×2 (09:06→18:33)
[2019-10-21] MEDS: metoprolol tartrate 25 mg Tablet 50 MG PO ×2 (09:07→18:33)
[2019-10-21] MEDS: famotidine 20 mg Tablet PO (09:07)
[2019-10-21] MEDS: doxycycline 100 mg Tablet PO ×2 (09:07→20:23)
[2019-10-21] MEDS: pregabalin 25 mg Capsule PO ×2 (09:07→18:34)
[2019-10-21] MEDS: aspirin 325 mg Tablet PO (09:07)
[2019-10-21] MEDS: isosorbide mononitrate ER 30 mg Tablet PO ×2 (09:07→18:34)
[2019-10-21] MEDS: spironolactone 25 mg Tablet PO ×2 (09:07→18:34)
[2019-10-21] MEDS: sevelamer 800 mg Tablet PO ×3 (09:08→18:34)
[2019-10-21] MEDS: doxazosin 4 mg Tablet 2 MG PO ×2 (09:08→18:34)
[2019-10-21] MEDS: insulin glargine 100 units/1 mL 20 UNIT SUBCUT (09:11)
[2019-10-21 11:01] LABS: Partial Thromboplastin Time 63.5 SECONDS (23.9-36.7)
[2019-10-21 11:54] LABS: Glucose Point of Care 156 mg/dL (70-110)
--- NOTE | 2019-10-21 13:17 | P.PN_ITS ---
Subjective Subjective: Interval history: I am seeing him in follow up for his ESRD management and dialysis needs. No chest pain. Shortness of breath improving. No nausea or vomiting Medications: Reviewed: Yes Vitals/I&O/Wt Last Vital Signs Temp 98.0 F 10/21/19 11:00 Pulse 69 10/21/19 11:00 Resp 22 H 10/21/19 11:00 BP 122/94 10/21/19 12:00 Pulse Ox 94 10/21/19 11:00 10/20/19 10/21/19 10/21/19 22:59 06:59 14:59 Intake Total 620 / 860 2233.2 / 3093.2 Output Total 2300 / 2300 4700 / 7000 Balance -1680 / -1440 -2466.8 / -3906.8 Weight last 48 hrs Weight 93.44 kg Weight 93.531 kg Weight 92.533 kg Weight 93.894 kg Physical Exam Const: COMMON NORMALS: no apparent distress and alert GENERAL APPEARANCE: cooperative and comfortable Resp: AUSCULTATION: crackles GI: AUSCULTATION: Yes normoactive bowel sounds Extremity: GENERAL: Yes edema Neuro: SENSORIUM/ORIENTATION: Yes alert Skin: RASHES: no rashes Data : 10/21/19 03:49 10/21/19 03:49 Micro: Microbiology 10/19/19 16:26 Blood Culture - Preliminary Blood NEGATIVE TO DATE 10/19/19 15:25 Blood Culture - Preliminary Blood NEGATIVE TO DATE A&P Assessment and plan (1) ESRD (end stage renal disease): Tolerating peritoneal dialysis well. Total UF was only 300ml, so will do 2.5%, 2 lit dwell for 4 hrs instead of 8hrs to pull more fluid Status: Acute Code(s): N18.6 - End stage renal disease (2) Hypertension: BP under control Status: Acute Qualifiers: Hypertension type: essential hypertension Qualified Code(s): I10 - Essential (primary) hypertension Code(s): I10 - Essential (primary) hypertension (3) Anemia: Will dose erythropoietin if needed Status: Acute Code(s): D64.9 - Anemia, unspecified (4) Congestive heart failure: Will try to remove more fluid with dialysis Status: Acute Qualifiers: Heart failure chronicity: acute Heart failure type: combined systolic and diastolic Qualified Code(s): I50.41 - Acute combined systolic (congestive) and diastolic (congestive) heart failure Code(s): I50.9 - Heart failure, unspecified Attestations Medical Necessity Statement*: ESRD Coding Level of Care Code Acute Cloth Cutter for [facility] Fwd Diagnoses ESRD (end stage renal disease) N18.6 Hypertension I10 Hypertension type: essential hypertension Anemia D64.9 Congestive heart failure I50.41 Heart failure chronicity: acute Heart failure type: combined systolic and diastolic
--- NOTE | 2019-10-21 16:01 | PM.PN ---
Subjective Subjective: Interval history: Denies any chest pain. Shortness of breath is also better. Medications: Reviewed: Yes Medication Review Details: Current Medications Aspirin (Aspirin) 325 mg PO DAILY [facility] Last Admin: 10/20/19 08:47 Dose: 325 mg Documented by: Atorvastatin Calcium (Lipitor) 20 mg PO BEDTIME [facility] Last Admin: 10/19/19 20:34 Dose: 20 mg Documented by: Clonidine HCl (Catapres) 0.2 mg PO BID [facility] Last Admin: 10/20/19 08:48 Dose: Not Given Documented by: Dextrose (D50w) 25 ml IVP ONCE PRN; Protocol PRN Reason: hypoglycemia protocol Dextrose (D50w) 50 ml IVP PRN PRN; Protocol PRN Reason: hypoglycemia protocol Doxazosin Mesylate (Cardura) 2 mg PO BID [facility] Last Admin: 10/20/19 08:47 Dose: 2 mg Documented by: Doxycycline Monohydrate (Vibramycin) 100 mg PO Q12H [facility] Last Admin: 10/20/19 11:05 Dose: 100 mg Documented by: Famotidine (Pepcid Tab) 20 mg PO DAILY [facility] Last Admin: 10/20/19 08:48 Dose: 20 mg Documented by: Furosemide (Lasix) 40 mg IVP BID [facility] Last Admin: 10/20/19 08:48 Dose: 40 mg Documented by: Glucagon (Glucagen) 1 mg IM ONCE PRN; Protocol PRN Reason: Adult Acute Hypoglycemia Prot. Heparin Sodium (Beef Lung) (Heparin) 0 unit IV PRN PRN; Protocol PRN Reason: Heparin weight-base protocol Dextrose (D5w) 500 mls @ 100 mls/hr IV ONCE PRN; Protocol PRN Reason: Adult Acute Hypoglycemia Prot Heparin Sodium/Sodium Chloride (Heparin Drip) 25,000 unit in 500 mls @ 0 mls/hr IV .Q0M [facility]; Protocol Last Admin: 10/19/19 23:43 Dose: 13.85 unit/kg/hr, 26 mls/hr Documented by: Nitroglycerin/Dextrose (Nitroglycerin Drip) 50 mg in 250 mls @ 0 mls/hr IV .Q0M WOO; Protocol Insulin Aspart (Novolog) 0 unit SUBCUT TIDWM [facility]; Protocol Last Admin: 10/20/19 13:01 Dose: 2 unit Documented by: Insulin Glargine (Lantus) 20 unit SUBCUT DAILY [facility] Last Admin: 10/20/19 11:09 Dose: Not Given Documented by: Isosorbide Mononitrate (Imdur) 30 mg PO DAILY [facility] Last Admin: 10/20/19 09:24 Dose: 30 mg Documented by: Metoprolol Tartrate (Lopressor) 25 mg PO BID [facility] Last Admin: 10/20/19 08:48 Dose: 25 mg Documented by: Nitroglycerin (Nitrostat) 0.4 mg SUBLINGUAL Q5M PRN PRN Reason: Chest Pain Last Admin: 10/20/19 04:06 Dose: 0.4 mg Documented by: Nitroglycerin (Nitro-Bid) 1 inch TOPICAL Q6H [facility] Last Admin: 10/20/19 11:05 Dose: 1 inch Documented by: Non-Formulary Medication (Ascorbic Acid (Vitamin C)) 100 mg PO DAILY [facility] Non-Formulary Medication (Nifedipine) 45 mg PO BID [facility] Non-Formulary Medication (Vit B [place]qqky[place]-V-Pvsei Ac-Zinc [Renaplex]) 1 tab PO DAILY [facility] Ondansetron HCl (Zofran) 4 mg IVP Q8H PRN PRN Reason: vomiting, or N/V if npo Peritoneal Dialysis Solution (Dianeal Low Ca W/2.5% Dex) 2,000 ml INTRAPERIT Q8H [facility] Last Admin: 10/20/19 13:20 Dose: 2,000 ml Documented by: Potassium Chloride (Klor-Con 10) 20 meq PO DAILY [facility] Last Admin: 10/20/19 08:48 Dose: 20 meq Documented by: Sevelamer Carbonate (Renvela) 800 mg PO TIDWM [facility] Last Admin: 10/20/19 11:09 Dose: Not Given Documented by: Spironolactone (Aldactone) 25 mg PO BID [facility] Last Admin: 10/20/19 08:48 Dose: 25 mg Documented by: Vitals/I&O/Wt Last Vital Signs Temp 98.0 F 10/21/19 15:48 Pulse 76 10/21/19 15:39 Resp 22 H 10/21/19 15:00 BP 160/91 10/21/19 15:00 Pulse Ox 98 10/21/19 15:39 10/21/19 10/21/19 10/21/19 06:59 14:59 22:59 Intake Total 2233.2 / 3093.2 Output Total 4700 / 7000 Balance -2466.8 / -3906.8 Weight last 48 hrs Weight 206 lb Weight 206 lb 3.2 oz Weight 204 lb Physical Exam Narrative: EXAM NARRATIVE: GENERAL: Patient is alert, awake and oriented x3. NECK: No jugular vein distension. HEENT: No cyanosis. No icterus. No pallor. HEART: Regular S1 and S2. No murmur, rub or gallop. LUNGS: Clear to auscultate bilaterally. ABDOMEN: Soft, nontender and nondistended. Positive bowel sounds. No guarding, rebound or tenderness. CENTRAL NERVOUS SYSTEM: Grossly nonfocal. EXTREMITIES: Lower extremities without edema bilaterally. Data : 10/21/19 03:49 10/21/19 03:49 Micro: Microbiology 10/19/19 16:26 Blood Culture - Preliminary Blood NEGATIVE TO DATE 10/19/19 15:25 Blood Culture - Preliminary Blood NEGATIVE TO DATE A&P Assessment and plan (1) Chest pain: Denies any more chest pain. Continue optimizing medicine for now . Since patient is stable and doing fine from cardiac perspective at this point we will continue to treat him medically Status: Acute Qualifiers: Chest pain type: unspecified Qualified Code(s): R07.9 - Chest pain, unspecified Code(s): R07.9 - Chest pain, unspecified (2) CAD (coronary artery disease): Status post coronary artery bypass. Currently stable. Continue current regimen. Denies any more chest pain Status: Acute Qualifiers: Coronary Disease-Associated Artery/Lesion type: bypass graft [place] vs. transplanted heart: [place] heart Associated angina: angina presence unspecified Qualified Code(s): I25.810 - Atherosclerosis of coronary artery bypass graft(s) without angina pectoris Code(s): I25.10 - Atherosclerotic heart disease of [place] coronary artery without angina pectoris (3) Congestive heart failure: Well compensated now. Continue current regimen Status: Acute Qualifiers: Heart failure chronicity: acute Heart failure type: combined systolic and diastolic Qualified Code(s): I50.41 - Acute combined systolic (congestive) and diastolic (congestive) heart failure Code(s): I50.9 - Heart failure, unspecified (4) ESRD (end stage renal disease): PD as per nephrology Status: Acute Code(s): N18.6 - End stage renal disease (5) Dyslipidemia: Status: Acute Code(s): E78.5 - Hyperlipidemia, unspecified (6) Hypertension: We will continue to optimize medicine Status: Acute Qualifiers: Hypertension type: essential hypertension Qualified Code(s): I10 - Essential (primary) hypertension Code(s): I10 - Essential (primary) hypertension (7) Diabetes: Status: Acute Code(s): E11.9 - Type 2 diabetes mellitus without complications Additional A&P Information Non-ST elevation [place] with elevated troponin likely type 2 in setting of d CHF and ESRD. -No ischemia on stress test from [facility]. Follow-up on patient symptoms and echocardiogram. In case patient continues to be symptomatic once he is nearly euvolemic, I will proceed with coronary angiogram. Thank you for allowing me to participate in patient's care. Please feel free to call with questions or concerns. Attestations Medical Necessity Statement*: Patient Requires continuation of hospitalization for above defined Care. Coding Level of Care Code Established Pt Acute Lip Cutter for Ines Matias Patient Type Established History Expanded Problem Focused Exam Expanded Problem Focused Medical Decision Making Moderate Complexity Diagnoses Chest pain R07.9 Chest pain type: unspecified CAD (coronary artery disease) I25.810 Coronary Disease-Associated Artery/Lesion type: bypass graft [place] vs. transplanted heart: [place] heart Associated angina: angina presence unspecified Congestive heart failure I50.41 Heart failure chronicity: acute Heart failure type: combined systolic and diastolic ESRD (end stage renal disease) N18.6 Dyslipidemia E78.5 Hypertension I10 Hypertension type: essential hypertension Diabetes E11.9
--- NOTE | 2019-10-21 17:02 | PC.NURSE ---
PATIENT TOLERATED PD WELL ; 2250mL DRAINED ; PATIENT NOT TO BE INSTILLED UNTIL 1200 10/22/19
[2019-10-21 17:14] LABS: Glucose Point of Care 151 mg/dL (70-110)
--- NOTE | 2019-10-21 17:14 | P.PN_ITS ---
Subjective Subjective: Interval history: Patient states that last night he did have one episode of chest pain rating to her shoulder, has some shortness of breath with exertion, has some abdominal pain with peritoneal dialysis, but other than that he is doing well Vitals/I&O/Wt Last Vital Signs Temp 98.0 F 10/21/19 15:48 Pulse 76 10/21/19 15:39 Resp 22 H 10/21/19 15:00 BP 160/91 10/21/19 15:00 Pulse Ox 98 10/21/19 15:39 10/21/19 10/21/19 10/21/19 06:59 14:59 22:59 Intake Total 2233.2 / 3093.2 Output Total 4700 / 7000 800 / 800 2250 / 3050 Balance -2466.8 / -3906.8 -800 / -800 -2250 / -3050 Weight last 48 hrs Weight 93.44 kg Weight 93.531 kg Weight 92.533 kg Physical Exam Const: COMMON NORMALS: no apparent distress and oriented x3 GENERAL APPEARANCE: cooperative and comfortable HENMT: COMMON NORMALS: normocephalic HEAD & SCALP: normocephalic Eye: COMMON NORMALS: PERRL, EOMs intact bilaterally and no papilledema GENERAL EYE: normal appearance of both eyes PUPIL: Yes PERRL DIRECT OPHTHALMOSCOPY: Yes no papilledema Neck/C-Spine: COMMON NORMALS: no JVD and thyroid normal THYROID: thyroid normal Lymph: LYMPHATIC: no lymphadenopathy noted Resp: COMMON NORMALS: normal respiratory effort, no retractions, no use of accessory muscles and clear to auscultation bilaterally AUSCULTATION: clear to auscultation bilaterally Cardio: COMMON NORMALS: no JVD, regular rate, regular rhythm, S1 normal heart sound and S2 normal heart sound RATE: regular rate RHYTHM: regular rhythm HEART SOUNDS: S1 normal and S2 normal GI: COMMON NORMALS: normal to inspection, nondistended, normoactive bowel sounds, soft to palpation, non-tender, no hepatosplenomegaly, no masses and no bruits PALPATION: Yes soft and Yes no hepatosplenomegaly Extremity: COMMON NORMALS: normal capillary refill, no clubbing, cyanosis or edema, no calf tenderness and no pedal edema Neuro: COMMON NORMALS: oriented x3 Psych: COMMON NORMALS: mental status grossly normal and thought process normal THOUGHT PROCESS: normal thought process Data : 10/21/19 03:49 10/21/19 03:49 Micro: Microbiology 10/19/19 16:26 Blood Culture - Preliminary Blood NEGATIVE TO DATE 10/19/19 15:25 Blood Culture - Preliminary Blood NEGATIVE TO DATE A&P Assessment and plan (1) Acute respiratory failure: -Likely secondary to CHF exacerbation as BNP is 35,000, CT chest shows bilateral pleural effusions -Unlikely pneumonia, as no significant leukocytosis, pro-Arley is 0.5, -CT chest does show bilateral groundglass opacities, possibly atypical pneumonia versus viral infection, antibiotics for now, and as patient is doing well, patient is requiring 2 L of oxygen, lungs are clear Plan: -Cardiology and nephrology plan on increasing PD -Fluid restriction 1500 cc -Lasix 40 IV twice daily -I have added doxycycline as chest x-ray shows groundglass opacities,, cover for atypical pneumonia -Daily weights, monitor urine output -Potassium supplementation Status: Acute Code(s): J96.00 - Acute respiratory failure, unspecified whether with hypoxia or hyperca pnia (2) Chest pain: -History of CABG x3 -Patient symptomatology seem concerning for cardiac etiology -Baseline troponin is 500, creatinine is 7.2 -EKG shows significant T wave inversions in lateral leads,and anterior leads -Last episode of chest pain was this morning -Last stress test in 2018 low probability of obstructive CAD -stress test at [facility] shows low probability of CAD Plan: -Admit to cardiac IMC -Aspirin, statin, beta-casie -Baseline troponin V 500, delta 16.5, EKG does show T wave inversions in the lateral leads and anterior leads -Nitro for chest -Is currently on a heparin drip -Echocardiogram pending -Cardiology and nephrology is planning on increasing PD dialysis, if patient continues to have chest pain, plan for cardiac catheterization if patient continues to have chest pain Status: Acute Qualifiers: Chest pain type: unspecified Qualified Code(s): R07.9 - Chest pain, unspecified Code(s): R07.9 - Chest pain, unspecified (3) Peritoneal dialysis status: -Nephrology has been consulted for peritoneal dialysis Status: Acute Code(s): Z99.2 - Dependence on renal dialysis (4) Hypertension: Status: Acute Qualifiers: Hypertension type: essential hypertension Qualified Code(s): I10 - Essential (primary) hypertension Code(s): I10 - Essential (primary) hypertension (5) ESRD (end stage renal disease): Status: Acute Code(s): N18.6 - End stage renal disease (6) Dyslipidemia: Status: Acute Code(s): E78.5 - Hyperlipidemia, unspecified (7) Diabetes: -Low-dose sliding scale, plus glargine 20 units daily Status: Acute Code(s): E11.9 - Type 2 diabetes mellitus without complications (8) CAD (coronary artery disease): CABG x3 Status: Acute Qualifiers: Coronary Disease-Associated Artery/Lesion type: bypass graft [place] vs. transplanted heart: [place] heart Associated angina: angina presence unspecified Qualified Code(s): I25.810 - Atherosclerosis of coronary artery bypass graft(s) without angina pectoris Code(s): I25.10 - Atherosclerotic heart disease of [place] coronary artery without angina pectoris Attestations Medical Necessity Statement*: Patient requires continued hospitalization due to acute respiratory failure, elevated troponins Coding Level of Care Code Acute Curriculum Manager for [facility] Fwd Diagnoses Acute respiratory failure J96.00 Chest pain R07.9 Chest pain type: unspecified Peritoneal dialysis status Z99.2 Hypertension I10 Hypertension type: essential hypertension ESRD (end stage renal disease) N18.6 Dyslipidemia E78.5 Diabetes E11.9 CAD (coronary artery disease) I25.810 Coronary Disease-Associated Artery/Lesion type: bypass graft [place] vs. transplanted heart: [place] heart Associated angina: angina presence unspecified
[2019-10-21 18:01] LABS: Partial Thromboplastin Time 58.8 SECONDS (23.9-36.7)
[2019-10-21] MEDS: heparin drip 25,000 UNIT/500 ML PREMIX 22 UNIT IV (19:28)
[2019-10-21] MEDS: atorvastatin 40 mg Tablet 20 MG PO (20:23)
[2019-10-21 20:56] LABS: Glucose Point of Care 181 mg/dL (70-110)
[2019-10-21] MEDS: lidocaine 2% viscous 15 ML, aluminum-mag hydrox-simethicon 30 ML, sucralfate oral liq 1 GM PO (22:14)
[2019-10-22] VITALS: BP 166/93; PULSE 72; RESP 16; TEMP 36.8; O2SAT 95
[2019-10-22 00:37] LABS: Partial Thromboplastin Time 58.2 SECONDS (23.9-36.7)
[2019-10-22 04:00] VITALS: BP 155/80; PULSE 68; RESP 21; TEMP 36.7; O2SAT 95
[2019-10-22 05:33] LABS: Basophils % 0.2 %; Eosinophils # 0.1 10^3/uL (0.0-0.8); Eosinophils % 1.6 %; Hematocrit 29.3 % (42.0-52.0); Hemoglobin 9.4 g/dL (11.7-16.6); Lymphocytes # 1.2 10^3/uL (0.8-4.8); Lymphocytes % 22.7 %; Mean Corpuscular HGB Conc 32.1 g/dL (30.0-36.0); Mean Corpuscular Hemoglobin 29.8 pg (28.0-34.0); Mean Platelet Volume 10.3 fL (7.4-10.4); Monocytes # 0.4 10^3/uL (0.2-0.9); Monocytes % 7.4 %; Neutrophils # 3.5 10^3/uL (1.8-7.7); Neutrophils % 67.5 %; Nucleated Red Blood Cells % 0 %; Platelet Count 237 10^3/cmm (130-400); Red Blood Count 3.15 10^6/uL (4.1-5.3); Red Cell Distribution Width 13.5 % (12.1-15.1); White Blood Count 5.2 10^3/uL (4.0-10.0)
[2019-10-22 05:58] LABS: Alanine Aminotransferase 19 U/L (0-41); Albumin Level 4.1 g/dL (3.5-5.2); Alkaline Phosphatase 63 IU/L (40-130); Anion Gap 19.7 (5-19); Aspartate Amino Transferase 20 U/L (0-40); Blood Urea Nitrogen 70 mg/dL (8-23); Carbon Dioxide 23 mmol/L (22-29); Chloride 99 mmol/L (98-107); Globulin 2.9 g/dL (1.3-4.6); Glomerular Filtration Rate 7.5 mL/min (90-130); Glucose 132 mg/dL (65-115); Magnesium 2.3 mg/dL (1.7-2.3); Phosphorus 4.4 mg/dL (2.5-4.5); Potassium 4.7 mmol/L (3.5-5.1); Sodium 137 mmol/L (136-145); Total Bilirubin 0.6 mg/dL (0.15-1.2)
[2019-10-22 06:38] LABS: Glucose Point of Care 136 mg/dL (70-110)
[2019-10-22 07:18] VITALS: BP 168/84; PULSE 73; RESP 21; TEMP 37.2; O2SAT 96
[2019-10-22] MEDS: sevelamer 800 mg Tablet PO ×2 (07:33→12:41)
[2019-10-22 07:58] LABS: Partial Thromboplastin Time 59.1 SECONDS (23.9-36.7)
--- NOTE | 2019-10-22 09:21 | PC.SOCIAL ---
IMM Update Pg 2 of IMM given and explained to patient who verbalized understanding. Copy provided to patient and copy placed in chart.
[2019-10-22] MEDS: FUROsemide 10 mg/mL SDV 4mL 40 MG IVP (09:35)
[2019-10-22] MEDS: insulin glargine 100 units/1 mL 20 UNIT SUBCUT (09:35)
[2019-10-22] MEDS: metoprolol tartrate 25 mg Tablet 50 MG PO (09:36)
[2019-10-22] MEDS: isosorbide mononitrate ER 30 mg Tablet PO (09:36)
[2019-10-22] MEDS: pregabalin 25 mg Capsule PO (09:36)
[2019-10-22] MEDS: calcium carbonate 500 mg Chew Tablet PO (09:36)
[2019-10-22] MEDS: doxycycline 100 mg Tablet PO (09:36)
[2019-10-22] MEDS: spironolactone 25 mg Tablet PO (09:36)
[2019-10-22] MEDS: doxazosin 4 mg Tablet 2 MG PO (09:36)
[2019-10-22] MEDS: aspirin 325 mg Tablet PO (09:36)
[2019-10-22] MEDS: famotidine 20 mg Tablet PO (09:36)
[2019-10-22 10:41] VITALS: PULSE 85; O2SAT 88; O2SAT 91; O2SAT 93
[2019-10-22 11:23] VITALS: BP 150/74; PULSE 79; RESP 20; TEMP 36.7; O2SAT 97
--- NOTE | 2019-10-22 11:34 | PC.NURSE ---
Addendum entered by Bethany Jaimes RN 10/22/19 11:37: DR. ENGEL NOTIFIED OF OXYGEN REFUSAL AND DIALYSIS REFUSAL. Original Note: PATIENT QUALIFIES FOR HOME OXYGEN. PATIENT HOWEVER, REFUSES OXYGEN. PATIENT STATES THAT PEOPLE COME TO HIS HOUSE AND TRY TO SELL HIM OXYGEN ALL THE TIME. HE STATES THAT WE ARE JUST TRYING TO GIVE HIM SOMETHING ELSE HE HAS TO PAY FOR. PATIENT ALSO REFUSES HIS DIALYSIS. HE STATES THAT HE WANTS TO INSTILL HIS DIALYSATE AT HOME.
[2019-10-22 11:59] LABS: Glucose Point of Care 235 mg/dL (70-110)
--- NOTE | 2019-10-22 12:18 | PM.DCS ---
Discharge Providers Date of Admission: 10/19/19 17:38 Date of Discharge: October 22, 2019 Attending Provider at Admission: Mark Vinson MD Attending Provider at Discharge: Joey White MD Primary Care Provider: Dany Dietz Jr, MD Diagnoses at Discharge Discharge Diagnosis (1) Acute respiratory failure: Status: Acute Problem details: Resolved Nephrology has made recommendations on changes to dialysis to prevent fluid reaccumulation. (2) Chest pain: Status: Acute Problem details: Cardiology has evaluated. Continue to medically treat Qualifiers: Chest pain type: unspecified Qualified Code(s): R07.9 - Chest pain, unspecified (3) Peritoneal dialysis status: Status: Acute Problem details: started april of 2019 (4) Hypertension: Status: Acute Problem details: Improved control Qualifiers: Hypertension type: essential hypertension Qualified Code(s): I10 - Essential (primary) hypertension (5) ESRD (end stage renal disease): Status: Acute Problem details: Peritoneal dialysis (6) Dyslipidemia: Status: Acute Problem details: Continue statin (7) Diabetes: Status: Acute (8) CAD (coronary artery disease): Status: Acute Qualifiers: Coronary Disease-Associated Artery/Lesion type: bypass graft [place] vs. transplanted heart: [place] heart Associated angina: angina presence unspecified Qualified Code(s): I25.810 - Atherosclerosis of coronary artery bypass graft(s) without angina pectoris Reason for Visit Reason for Visit: Reason For Visit: SOB Hospital Course Hospital Course: Sherwin is a 69-year-old white male that presented to the hospital with chest pain and shortness of breath. He has underlying end-stage renal disease and is on peritoneal dialysis. There was concern for significant fluid overload, elevated troponin. Nephrology as well as cardiology was consulted secondary to this. During his hospital stay fluid restriction was placed on him. He received IV Lasix. Nephrology arranged changes to peritoneal dialysis to initiate diuresis. With these changes the patient improved significantly during his hospital stay. Cardiology ultimately did not believe angiogram was needed, but multiple medication changes were made to his chronic medications for his hypertension as well as chest discomfort. By time of discharge she was feeling much better. He was able to ambulate the halls without any chest discomfort. He did qualify for 2 L of oxygen, but probably refused it reporting he would not use any oxygen at home. Follow-up with nephrology, cardiology, and his primary care provider was arranged. During his hospital stay he did receive a echocardiogram demonstrating preserved EF, moderate pulmonary hypertension, moderate aortic stenosis. Chest CT demonstrated a reticular mild groundglass opacity thought to be edema. Note that he was also discharged on doxycycline secondary to concern of possible early pneumonia secondary to this abnormal finding. Physical Exam Narrative: EXAM NARRATIVE: General exam no apparent distress Cardiovascular regular rate and rhythm Lungs clear Abdomen soft with positive bowel sounds, peritoneal dialysis catheter noted Extremities no cyanosis clubbing or edema Discharge Data Data Completed and Pending: Completed Studies During Hospitalization Category Date Time Status CT chest wo con 7 1250 Urgent Cat Scan 10/19/19 15:39 Completed XR chest 1V brittney ble [id number] Stat Exams 10/19/19 14:59 Completed CV echo complete* [id number] Routine Ultrasound 10/20/19 19:41 Completed Pending at discharge Category Date Time Status Blood Culture Sta t Lab 10/19/19 16:26 Results Complete Blood Co unt w/Auto AM LABS Lab 10/23/19 04:00 Ordered Lead Serum Routin e Lab 10/19/19 22:13 Received Platelet Count Q2 D Lab 10/23/19 04:00 Ordered Labs from last 24 hours 10/22/19 10/22/19 10/22/19 11:22 07:24 06:21 WBC RBC Hgb Hct MCV MCH MCHC RDW Plt Count MPV Neut % (Auto) Lymph % (Auto) [place] % (Auto) Eos % (Auto) Baso % (Auto) Neut # (Auto) Lymph # (Auto) [place] # (Auto) Eos # (Auto) Baso # (Auto) Nucleated RBC % (a uto) Nucleated RBCs # APTT 59.1 H Sodium Potassium Chloride Carbon Dioxide Anion Gap BUN Creatinine GFR Calculation Glucose POC Glucose 235 136 Calcium Phosphorus Magnesium Total Bilirubin AST ALT Alkaline Phosphata se Total Protein Albumin Globulin 10/22/19 10/22/19 10/22/19 04:58 04:58 00:22 WBC 5.2 RBC 3.15 L Hgb 9.4 L Hct 29.3 L MCV 93.0 MCH 29.8 MCHC 32.1 RDW 13.5 Plt Count 237 MPV 10.3 Neut % (Auto) 67.5 Lymph % (Auto) 22.7 [place] % (Auto) 7.4 Eos % (Auto) 1.6 Baso % (Auto) 0.2 Neut # (Auto) 3.5 Lymph # (Auto) 1.2 [place] # (Auto) 0.4 Eos # (Auto) 0.1 Baso # (Auto) 0.0 Nucleated RBC % (a uto) 0 Nucleated RBCs # 0.0 APTT 58.2 H Sodium 137 Potassium 4.7 Chloride 99 Carbon Dioxide 23 Anion Gap 19.7 H BUN 70 H Creatinine 7.3 H* GFR Calculation 7.5 L Glucose 132 H POC Glucose Calcium 10.0 Phosphorus 4.4 Magnesium 2.3 Total Bilirubin 0.6 AST 20 ALT 19 Alkaline Phosphata se 63 Total Protein 7.0 Albumin 4.1 Globulin 2.9 10/21/19 10/21/19 10/21/19 20:13 17:38 16:36 WBC RBC Hgb Hct MCV MCH MCHC RDW Plt Count MPV Neut % (Auto) Lymph % (Auto) [place] % (Auto) Eos % (Auto) Baso % (Auto) Neut # (Auto) Lymph # (Auto) [place] # (Auto) Eos # (Auto) Baso # (Auto) Nucleated RBC % (a uto) Nucleated RBCs # APTT 58.8 H Sodium Potassium Chloride Carbon Dioxide Anion Gap BUN Creatinine GFR Calculation Glucose POC Glucose 181 151 Calcium Phosphorus Magnesium Total Bilirubin AST ALT Alkaline Phosphata se Total Protein Albumin Globulin 10/21/19 11:10 WBC RBC Hgb Hct MCV MCH MCHC RDW Plt Count MPV Neut % (Auto) Lymph % (Auto) [place] % (Auto) Eos % (Auto) Baso % (Auto) Neut # (Auto) Lymph # (Auto) [place] # (Auto) Eos # (Auto) Baso # (Auto) Nucleated RBC % (a uto) Nucleated RBCs # APTT Sodium Potassium Chloride Carbon Dioxide Anion Gap BUN Creatinine GFR Calculation Glucose POC Glucose 156 Calcium Phosphorus Magnesium Total Bilirubin AST ALT Alkaline Phosphata se Total Protein Albumin Globulin Vitals: Last Vital Signs Temp 98.0 F 10/22/19 11:23 Pulse 79 10/22/19 11:23 Resp 20 H 10/22/19 11:23 BP 150/74 10/22/19 11:23 Pulse Ox 97 10/22/19 11:23 Discharge Plan Discharge Patient Disposition: Home, Self-Care Condition: Stable Prescriptions: New aspirin 325 mg Tablet 325 mg PO DAILY Qty: 30 RF: 0 spironolactone 25 mg Tablet 25 mg PO BID Qty: 60 RF: 0 clonidine HCl 0.1 mg Tablet 0.2 mg PO BID Qty: 120 RF: 0 isosorbide mononitrate 30 mg Tablet Extended Release 24 Hr 30 mg PO BID Qty: 60 RF: 0 doxycycline monohydrate 100 mg Tablet 100 mg PO Q12H Qty: 10 RF: 0 Continued famotidine 20 mg tablet 20 mg PO DAILY RF: 0 furosemide 40 mg tablet 40 mg PO DAILY RF: 0 sevelamer HCl 800 mg tablet 800 mg PO TID RF: 0 doxazosin 1 mg tablet 2 mg PO BID RF: 0 Lantus U-100 Insulin 100 unit/mL solution 20 unit SUBCUT DAILY RF: 0 ascorbic acid (vitamin C) Crystals 100 mg PO DAILY RF: 0 simvastatin 40 mg tablet 40 mg PO DAILY RF: 0 nitroglycerin [Nitrostat] 0.4 mg tablet, sublingual 0.4 mg SUBLINGUAL Q5M PRN (Reason: Chest Pain) RF: 0 metoprolol tartrate 50 mg tablet 50 mg PO BID RF: 0 Lyrica 25 mg Capsule 25 mg PO BID RF: 0 RenaPlex 800 mcg- 12.5 mg Tablet 1 tab PO DAILY RF: 0 Discontinued spironolactone 25 mg tablet 50 mg PO BID RF: 0 nifedipine 90 mg tablet extended release 90 mg PO BID RF: 0 terazosin 5 mg capsule 5 mg PO DAILY RF: 0 clonidine HCl 0.3 mg Tablet 0.3 mg PO BID PRN (Reason: Blood Pressure) RF: 0 minoxidil 2.5 mg Tablet 2.5 mg PO BID RF: 0 Discharge Orders: Discharge Order (Routine); Ordered 10/22/19 Ordered By: Joey White Other Ambulatory Orders: DME: Oxygen (Order) Location: None Selected Ordered By: Joey White Referrals: Larry Akins MD [Physician] - 1 week Dany Dietz Jr, MD [Primary Care Provider] - 4-7 days Discharge Diet: Usual diet Discharge Activity: Resume usual activity Activity Restrictions/Additional Instructions: Return for any significant chest discomfort Take medicines as prescribed Follow-up with cardiology 1 to 2 weeks, nephrology 1 week, primary care provider 3 to 5 days Discharge Attestations Time Spent in Discharge Care*: greater than 30 min Quality Metrics Clinical Quality Measures During this hospital stay, did patient experience: None Coding Level of Care Code Acute Electronic Masking System Operator for g Fwd Diagnoses Acute respiratory failure J96.00 Chest pain R07.9 Chest pain type: unspecified Peritoneal dialysis status Z99.2 Hypertension I10 Hypertension type: essential hypertension ESRD (end stage renal disease) N18.6 Dyslipidemia E78.5 Diabetes E11.9 CAD (coronary artery disease) I25.810 Coronary Disease-Associated Artery/Lesion type: bypass graft [place] vs. transplanted heart: [place] heart Associated angina: angina presence unspecified
[2019-10-22 12:44] VITALS: BP 150/74; PULSE 79; RESP 20; TEMP 36.7; O2SAT 97
--- NOTE | 2019-10-22 18:58 | PM.PN ---
Subjective Subjective: Interval history: Denies any chest pain , Patient is ready to go home Medications: Reviewed: Yes Medication Review Details: Current Medications Aspirin (Aspirin) 325 mg PO DAILY [facility] Last Admin: 10/20/19 08:47 Dose: 325 mg Documented by: Atorvastatin Calcium (Lipitor) 20 mg PO BEDTIME [facility] Last Admin: 10/19/19 20:34 Dose: 20 mg Documented by: Clonidine HCl (Catapres) 0.2 mg PO BID [facility] Last Admin: 10/20/19 08:48 Dose: Not Given Documented by: Dextrose (D50w) 25 ml IVP ONCE PRN; Protocol PRN Reason: hypoglycemia protocol Dextrose (D50w) 50 ml IVP PRN PRN; Protocol PRN Reason: hypoglycemia protocol Doxazosin Mesylate (Cardura) 2 mg PO BID [facility] Last Admin: 10/20/19 08:47 Dose: 2 mg Documented by: Doxycycline Monohydrate (Vibramycin) 100 mg PO Q12H [facility] Last Admin: 10/20/19 11:05 Dose: 100 mg Documented by: Famotidine (Pepcid Tab) 20 mg PO DAILY [facility] Last Admin: 10/20/19 08:48 Dose: 20 mg Documented by: Furosemide (Lasix) 40 mg IVP BID [facility] Last Admin: 10/20/19 08:48 Dose: 40 mg Documented by: Glucagon (Glucagen) 1 mg IM ONCE PRN; Protocol PRN Reason: Adult Acute Hypoglycemia Prot. Heparin Sodium (Beef Lung) (Heparin) 0 unit IV PRN PRN; Protocol PRN Reason: Heparin weight-base protocol Dextrose (D5w) 500 mls @ 100 mls/hr IV ONCE PRN; Protocol PRN Reason: Adult Acute Hypoglycemia Prot Heparin Sodium/Sodium Chloride (Heparin Drip) 25,000 unit in 500 mls @ 0 mls/hr IV .Q0M WOO; Protocol Last Admin: 10/19/19 23:43 Dose: 13.85 unit/kg/hr, 26 mls/hr Documented by: Nitroglycerin/Dextrose (Nitroglycerin Drip) 50 mg in 250 mls @ 0 mls/hr IV .Q0M WOO; Protocol Insulin Aspart (Novolog) 0 unit SUBCUT TIDWM [facility]; Protocol Last Admin: 10/20/19 13:01 Dose: 2 unit Documented by: Insulin Glargine (Lantus) 20 unit SUBCUT DAILY [facility] Last Admin: 10/20/19 11:09 Dose: Not Given Documented by: Isosorbide Mononitrate (Imdur) 30 mg PO DAILY [facility] Last Admin: 10/20/19 09:24 Dose: 30 mg Documented by: Metoprolol Tartrate (Lopressor) 25 mg PO BID [facility] Last Admin: 10/20/19 08:48 Dose: 25 mg Documented by: Nitroglycerin (Nitrostat) 0.4 mg SUBLINGUAL Q5M PRN PRN Reason: Chest Pain Last Admin: 10/20/19 04:06 Dose: 0.4 mg Documented by: Nitroglycerin (Nitro-Bid) 1 inch TOPICAL Q6H [facility] Last Admin: 10/20/19 11:05 Dose: 1 inch Documented by: Non-Formulary Medication (Ascorbic Acid (Vitamin C)) 100 mg PO DAILY [facility] Non-Formulary Medication (Nifedipine) 45 mg PO BID [facility] Non-Formulary Medication (Vit B Efdzdxm-I-Uketh Ac-Zinc [Renaplex]) 1 tab PO DAILY [facility] Ondansetron HCl (Zofran) 4 mg IVP Q8H PRN PRN Reason: vomiting, or N/V if npo Peritoneal Dialysis Solution (Dianeal Low Ca W/2.5% Dex) 2,000 ml INTRAPERIT Q8H [facility] Last Admin: 10/20/19 13:20 Dose: 2,000 ml Documented by: Potassium Chloride (Klor-Con 10) 20 meq PO DAILY [facility] Last Admin: 10/20/19 08:48 Dose: 20 meq Documented by: Sevelamer Carbonate (Renvela) 800 mg PO TIDWM [facility] Last Admin: 10/20/19 11:09 Dose: Not Given Documented by: Spironolactone (Aldactone) 25 mg PO BID [facility] Last Admin: 10/20/19 08:48 Dose: 25 mg Documented by: Vitals/I&O/Wt Last Vital Signs Temp 98.0 F 10/22/19 12:44 Pulse 79 10/22/19 12:44 Resp 20 H 10/22/19 12:44 BP 150/74 10/22/19 12:44 Pulse Ox 97 10/22/19 12:44 10/22/19 10/22/19 10/22/19 06:59 14:59 22:59 Intake Total 240 / 240 Output Total Balance 240 / 240 Weight last 48 hrs Weight 203 lb 4.8 oz Weight 206 lb Weight 206 lb 3.2 oz Weight 204 lb Physical Exam Narrative: EXAM NARRATIVE: GENERAL: Patient is alert, awake and oriented x3. NECK: No jugular vein distension. HEENT: No cyanosis. No icterus. No pallor. HEART: Regular S1 and S2. No murmur, rub or gallop. LUNGS: Clear to auscultate bilaterally. ABDOMEN: Soft, nontender and nondistended. Positive bowel sounds. No guarding, rebound or tenderness. CENTRAL NERVOUS SYSTEM: Grossly nonfocal. EXTREMITIES: Lower extremities without edema bilaterally. Data : 10/22/19 04:58 10/22/19 04:58 A&P Assessment and plan (1) Chest pain: Patient has walked around he denies any chest pain. He denies out of usual shortness of breath. Continue current regimen. Status: Acute Qualifiers: Chest pain type: unspecified Qualified Code(s): R07.9 - Chest pain, unspecified Code(s): R07.9 - Chest pain, unspecified (2) CAD (coronary artery disease): Currently stable. Continue current regimen. Denies any more chest pain. Follow up with cardiology as an outpatient Status: Acute Qualifiers: Coronary Disease-Associated Artery/Lesion type: bypass graft [place] vs. transplanted heart: [place] heart Associated angina: angina presence unspecified Qualified Code(s): I25.810 - Atherosclerosis of coronary artery bypass graft(s) without angina pectoris Code(s): I25.10 - Atherosclerotic heart disease of [place] coronary artery without angina pectoris (3) Congestive heart failure: It is well compensated. Continue medicine Status: Acute Qualifiers: Heart failure chronicity: acute Heart failure type: combined systolic and diastolic Qualified Code(s): I50.41 - Acute combined systolic (congestive) and diastolic (congestive) heart failure Code(s): I50.9 - Heart failure, unspecified (4) ESRD (end stage renal disease): PD as per nephrology Status: Acute Code(s): N18.6 - End stage renal disease (5) Dyslipidemia: Status: Acute Code(s): E78.5 - Hyperlipidemia, unspecified (6) Hypertension: We will continue to optimize medicine Status: Acute Qualifiers: Hypertension type: essential hypertension Qualified Code(s): I10 - Essential (primary) hypertension Code(s): I10 - Essential (primary) hypertension (7) Diabetes: Status: Acute Code(s): E11.9 - Type 2 diabetes mellitus without complications Additional A&P Information Non-ST elevation [place] with elevated troponin likely type 2 in setting of d CHF and ESRD. -[facility] [place]. Follow-up on patient symptoms and echocardiogram. In case patient continues to be symptomatic once he is nearly euvolemic, I will proceed with coronary angiogram. Thank you for allowing me to participate in patient's care. Please feel free to call with questions or concerns. Attestations Medical Necessity Statement*: From a cardiac vascular perspective patient can be discharged home. Follow-up with Dr. Akins as scheduled. Patient would like to only see Dr. Akins therefore he is advised to call Dr. Akins's office tomorrow to get an allergy appointment. Coding Level of Care Code Established Pt Acute Tape Cutting Machine Operator for g Fwd Patient Type Established History Expanded Problem Focused Exam Expanded Problem Focused Medical Decision Making Moderate Complexity Diagnoses Chest pain R07.9 Chest pain type: unspecified CAD (coronary artery disease) I25.810 Coronary Disease-Associated Artery/Lesion type: bypass graft [place] vs. transplanted heart: [place] heart Associated angina: angina presence unspecified Congestive heart failure I50.41 Heart failure chronicity: acute Heart failure type: combined systolic and diastolic ESRD (end stage renal disease) N18.6 Dyslipidemia E78.5 Hypertension I10 Hypertension type: essential hypertension Diabetes E11.9
== END 2019-10-22 13:15 | disposition home or self-care (01) | DRG 189 ==
LOC: ER 17:59 → CSU 18:34
PROVIDERS: Internal Medicine; Internal Medicine Nephrology; Admitting Provider Family Medicine; Emergency Provider Emergency Medicine; Family Provider Family Medicine; PCP Family Medicine; Visit Provider Internal Medicine
DX: J96.00 Acute respiratory failure, unspecified whether with hypoxia or hypercapnia (principal); N18.6 End stage renal disease; I50.43 Acute on chronic combined systolic (congestive) and diastolic (congestive) heart failure; I21.4 Non-ST elevation (NSTEMI) myocardial infarction; I25.810 Atherosclerosis of coronary artery bypass graft(s) without angina pectoris; I13.0 Hypertensive heart and chronic kidney disease with heart failure and stage 1 through stage 4 chronic kidney disease, or unspecified chronic kidney disease; E78.5 Hyperlipidemia, unspecified; E11.22 Type 2 diabetes mellitus with diabetic chronic kidney disease; I27.20 Pulmonary hypertension, unspecified; I35.0 Nonrheumatic aortic (valve) stenosis; I45.10 Unspecified right bundle-branch block; E87.70 Fluid overload, unspecified; D63.1 Anemia in chronic kidney disease; Z95.1 Presence of aortocoronary bypass graft; Z99.2 Dependence on renal dialysis; Z79.82 Long term (current) use of aspirin; Z79.4 Long term (current) use of insulin; Z79.83 Long term (current) use of bisphosphonates; Z79.899 Other long term (current) drug therapy
CPT/HCPCS: 12345; 36415; 36416; 36600; 71045; 71250; 80053; 80061; 82803; 82962; 83036; 83655; 83735; 83880; 84100; 84145; 84443; 84484; 85025; 85049; 85730; 86140; 87040; 87804; 90935; 93005; 93306; 94664; 96372; 96375; 99283; J1644; J1815; J1940; Q3014

== ENCOUNTER 2019-11-30 15:35 | Emergency (ER) | payer MEDICARE, OTHER, SELFPAY ==
[2019-11-30 15:46] VITALS: BP 120/78; PULSE 69; RESP 16; TEMP 36.9; O2SAT 98; BMI 29.1
--- NOTE | 2019-11-30 17:21 | ED_ITS ---
HPI - Animal Bite General: Chief Complaint: Animal Bite Stated Complaint: dog bite x 2 days ago Time Seen by Provider: 11/30/19 17:10 Source: patient Mode of arrival: ambulatory Limitations: no limitations History of Present Illness: HPI narrative: Patient is a 69-year-old male who presents to ED today with complaints of a dog bite to his right hand 2 days ago. Patient states a stray dog was attacking 1 of his chickens and when he went to intervene he was bitten. Again dog is a stray and immunization status is unknown. Dog is not able to be quarantined. He has not noticed any redness, swelling, or pain to the area. Contacted Health Dept who told him to come to ED for rabies shots. MD complaint: animal bite Onset (ago): day(s) Animal: dog Description of animal: immunizations unknown Mechanism: bite Location - Extremities: Right: hand Context: provoked Associated symptoms: Reports no associated symptoms; Deny headache(s) Related Data: Patient tetanus UTD: Yes Review of Systems Skin/Breast: Reports: other (dog bite to R hand) Neuro: Denies: headache, numbness in extremities, weakness in extremities, changes in sensation or lack of coordination PFSH ED PFSH: Medical History (Updated 11/30/19 @ 17:33 by VAIBHAV Tirado) Anemia CAD (coronary artery disease) COPD (chronic obstructive pulmonary disease) CVA (cerebral vascular accident) Diabetes Dyslipidemia Continue statin ESRD (end stage renal disease) Peritoneal dialysis GERD (gastroesophageal reflux disease) Hepatitis C Hypersomnia Hypertension Improved control Neuropathy Peritoneal dialysis status started april of 2019 Sleep apnea Surgical History History of carotid endarterectomy Bilateral History of colonoscopy with polypectomy Patient had a normal colonoscopy he will not require further screening colonoscopies due to his age of 69. History of coronary artery bypass graft Social History Smoking and tobacco status: former smoker Second hand smoke exposure: No Alcohol intake: never Adopted: No Caregiver/support person: Yes Lives independently: Yes Household members: spouse Housing: House Marital status: Highest education level completed: High School Graduate service: Yes (3 years ) Current occupational status: retired History of recent travel: No Sexually active: No Current gender identity: Male María/Buddhism: Adventism Special maría needs: No Agree to transfusion: No Financial difficulty paying for basics: Decline to Answer Physical Exam Const: COMMON NORMALS: no apparent distress, average body habitus, oriented x3, no limitations, healthy appearing, alert and well nourished Extremity: OTHER: small healing dog bite to dorsum of R hand; R hand with chronic contracture; there is no redness, swelling, drainage, streaking to the area Neuro: COMMON NORMALS: oriented x3 SENSORIUM/ORIENTATION: Yes alert Skin: OTHER: see extremity assessment Course Vital Signs: Vital signs: Vital Signs Temperature 98.5 F 11/30/19 15:46 Pulse Rate 69 11/30/19 15:46 Respiratory Rate 16 11/30/19 15:46 Blood Pressure 120/78 11/30/19 15:46 Pulse Oximetry 98 11/30/19 15:46 MDM - Animal Bite MDM Narrative: Medical decision making narrative: pt has no signs of infection at this time 48 hours later; I don't see a need to initiate abx this late into care; he was started on rabies series and his tetanus was updated Discharge Plan Discharge Patient Disposition: Home, Self-Care Clinical Impression: Dog bite of right hand Qualifiers: Encounter type: initial encounter Qualified Code(s): S61.451A - Open bite of right hand, initial encounter Condition: Stable Prescriptions: No Action famotidine 20 mg tablet 20 mg PO DAILY RF: 0 furosemide 40 mg tablet 40 mg PO DAILY RF: 0 sevelamer HCl 800 mg tablet 800 mg PO TID RF: 0 doxazosin 1 mg tablet 2 mg PO BID RF: 0 Lantus U-100 Insulin 100 unit/mL solution 20 unit SUBCUT DAILY RF: 0 ascorbic acid (vitamin C) Crystals 100 mg PO DAILY RF: 0 simvastatin 40 mg tablet 40 mg PO DAILY RF: 0 nitroglycerin [Nitrostat] 0.4 mg tablet, sublingual 0.4 mg SUBLINGUAL Q5M PRN (Reason: Chest Pain) RF: 0 metoprolol tartrate 50 mg tablet 50 mg PO BID RF: 0 Lyrica 25 mg Capsule 25 mg PO BID RF: 0 RenaPlex 800 mcg- 12.5 mg Tablet 1 tab PO DAILY RF: 0 clonidine HCl 0.1 mg Tablet 0.2 mg PO BID Qty: 120 RF: 0 aspirin 325 mg Tablet 325 mg PO DAILY Qty: 30 RF: 0 isosorbide mononitrate 30 mg Tablet Extended Release 24 Hr 30 mg PO BID Qty: 60 RF: 0 doxycycline monohydrate 100 mg Tablet 100 mg PO Q12H Qty: 10 RF: 0 spironolactone 25 mg Tablet 25 mg PO BID Qty: 60 RF: 0 Discharge Orders: Discharge Order (Routine); Ordered 11/30/19 Ordered By: Juliette Lindsey Referrals: Dany Dietz Jr, MD [Primary Care Provider] - Patient Instructions: Rabies Vaccine (Injection), Rabies Immune Globulin (Injection), Animal Bite (ED) Activity Restrictions/Additional Instructions: You have been given a schedule for the remainder of your rabies vaccination series. These can be completed through [facility]. Coding Level of Care Code ED Internet Media Planner for Ines Matias Exam Problem Focused
[2019-11-30] MEDS: tetanus-diphtheria tox (adult) 0.5 mL SDV IM (18:30)
[2019-11-30] MEDS: rabies vaccine 2.5 unit SDV IM (18:30)
[2019-11-30 19:23] VITALS: BP 121/92; PULSE 71; O2SAT 98
== END 2019-11-30 19:24 | disposition home or self-care (01) ==
PROVIDERS: Emergency Provider Physician Assistant; Family Provider Family Medicine; PCP Family Medicine
DX: S61.451A Open bite of right hand, initial encounter (principal); W54.0XXA Bitten by dog, initial encounter; Z20.3 Contact with and (suspected) exposure to rabies; I25.10 Atherosclerotic heart disease of native coronary artery without angina pectoris; Z86.73 Personal history of transient ischemic attack (TIA), and cerebral infarction without residual deficits; J44.9 Chronic obstructive pulmonary disease, unspecified; E78.5 Hyperlipidemia, unspecified; E11.22 Type 2 diabetes mellitus with diabetic chronic kidney disease; I12.0 Hypertensive chronic kidney disease with stage 5 chronic kidney disease or end stage renal disease; N18.6 End stage renal disease; Z99.2 Dependence on renal dialysis; B19.20 Unspecified viral hepatitis C without hepatic coma; E11.40 Type 2 diabetes mellitus with diabetic neuropathy, unspecified; G47.30 Sleep apnea, unspecified; Z95.1 Presence of aortocoronary bypass graft; Z87.891 Personal history of nicotine dependence; Z79.82 Long term (current) use of aspirin
CPT/HCPCS: 12345; 90471; 90472; 90675; 90714; 96365; 96372; 99281

== ENCOUNTER 2020-06-26 12:02 | Emergency (ER) | payer MEDICARE, OTHER, SELFPAY ==
[2020-06-26 12:11] VITALS: BP 102/63; PULSE 108; RESP 18; TEMP 36.4; O2SAT 98; BMI 28.7
--- NOTE | 2020-06-26 12:52 | XR_ITS ---
WS: [id number] Portable AP upright chest, 06/26/2020 Clinical Data: sob Comparison: Portable chest, 10/19/2019. Findings: There is a deformity of the right chest with right pleural thickening. There is blunting of the right costophrenic angle from pleural reaction. Left lung is clear. No pneumonia or pneumothorax is seen. No nodules, masses or effusions are seen. There are clips adjacent to the right trachea. Mi dline sternotomy sutures are present with mediastinal clips.. The heart is normal. The pulmonary vasc ularity is not increased. XR/XR chest 1V portable [id number] Impression: 1. Deformity of the right chest with pleural thickening unchanged. 2. Atherosclerosis.
--- NOTE | 2020-06-26 12:52 | ECG_ITS ---
[facility] Test Date: 2020-06-26 Pat Name: Sherwin Yates Department: Room: Gender: Male Front End Web Developer: : 1950 Requested By: Bert Cavazos Order Number: [id number] Brittani MD: Kiran Larkin M.D. Measurements Intervals [place] Rate: 70 P: 50 VT: 139 QRS: -43 QRSD: 138 T: -8 QT: 427 QTc: 463 Interpretive Statements SINUS RHYTHM LEFT AXIS DEVIATION [QRS AXIS < -30] RIGHT BUNDLE BRANCH BLOCK [120+ ms QRS DURATION, UPRIGHT V1, 40+ ms S IN I/aVL/V4/V5/V6] Compared to ECG 10/20/2019 07:24:02 Left-axis deviation now present Left anterior fascicular block no longer present Left ventricular hypertrophy no longer present ST (T wave) deviation no longer present Myocardial infarct finding no longer present Electronically Signed On 06-26-2020 16:07:58 PERMANENT WAVER by Kiran Larkin M.D. [id number]
--- NOTE | 2020-06-26 12:54 | ED_ITS ---
HPI - SOB/Dyspnea General: Chief Complaint: Shortness of Breath/Dyspnea Stated Complaint: DIFF BREATHING Time Seen by Provider: 06/26/20 12:24 Source: patient Mode of arrival: ambulatory Limitations: no limitations History of Present Illness: HPI Narrative: 69-year-old male has a history of end-stage renal disease and is on peritoneal dialysis. States over the last 4 to 5 days he has had a cough along with some slight shortness of breath and wheezing. He states his electricity trading analyst want him to come to the ER to be checked for Covid. He denies any shortness of breath currently his pulse ox is 96% on room air. He denies any chest pain currently. Denies any worsening or improving factors. Denies any fever. Associated symptoms: Deny abdominal pain, chest pain, fever(s), nausea or vomiting Review of Systems Const: Denies: fever(s), chills, body aches or change in appetite Eyes: Denies: blurry vision or eye discomfort ENMT: Denies: throat pain or dental pain Card: Denies: chest pain Resp: Reports: dyspnea GI: Denies: abdominal pain, nausea, vomiting or diarrhea : Denies: dysuria Musc: Denies: neck pain or back pain Skin/Breast: Denies: rash Neuro: Denies: headache(s) Psych: Denies: depression Lanre/Lymph: Denies: easy bruising All/Imm: Denies: urticaria PFSH ED PFSH: Medical History Anemia CAD (coronary artery disease) Carotid stenosis COPD (chronic obstructive pulmonary disease) CVA (cerebral vascular accident) Diabetes Dyslipidemia Continue statin ESRD (end stage renal disease) Peritoneal dialysis GERD (gastroesophageal reflux disease) Hepatitis C Hypersomnia Hypertension Improved control Neuropathy Peritoneal dialysis status started april of 2019 Sleep apnea Surgical History History of carotid endarterectomy Bilateral History of colonoscopy with polypectomy Patient had a normal colonoscopy he will not require further screening colonoscopies due to his age of 69. History of coronary artery bypass graft Family History Denies family history of Anesthesia complication Bleeding disorder Social History Smoking and tobacco status: former smoker Second hand smoke exposure: No Alcohol intake: never Adopted: No Caregiver/support person: Yes Lives independently: Yes Household members: spouse Housing: House Marital status: Highest education level completed: High School Graduate service: Yes (3 years ) branch: [employer] Current occupational status: retired History of recent travel: No Sexually active: No Current gender identity: Male María/Hindu: Gnosticist Special maría needs: No Agree to transfusion: No Financial difficulty paying for basics: Decline to Answer Physical Exam Const: COMMON NORMALS: no acute distress, patient oriented x3 and healthy appearing HENMT: COMMON NORMALS: normocephalic and atraumatic HEAD & SCALP: normocephalic and atraumatic Eye: COMMON NORMALS: Equal, round and reactive pupils present and EOMs intact bilaterally PUPIL: Yes Equal, round and reactive pupils present Neck/C-Spine: COMMON NORMALS: full ROM and supple Chest: COMMONS NORMALS: normal inspection of the chest and normal palpation of entire chest wall Resp: COMMON NORMALS: normal respiratory effort, No retractions, No use of accessory muscles and clear to auscultation bilaterally AUSCULTATION: clear to auscultation bilaterally Cardio: COMMON NORMALS: regular rate, regular rhythm and No murmurs present (Cardio) RATE: regular rate RHYTHM: regular rhythm GI: COMMON NORMALS: Normal to inspection, nondistended, normoactive bowel sounds present, Soft to palpation, non-tender and no masses PALPATION: Yes Soft to palpation Extremity: COMMON NORMALS: normal to inspection and full ROM Neuro: COMMON NORMALS: patient oriented x3, moves all extremities and no focal motor deficits Psych: COMMON NORMALS: mental status grossly normal, Normal thought process present and cooperative THOUGHT PROCESS: Normal thought process present Skin: COMMON NORMALS: no rashes or lesions noted and no wounds GENERAL SKIN EXAM: no rashes or lesions noted Course Vital Signs: Vital signs: Vital Signs Temperature 97.5 F L 06/26/20 12:11 Pulse Rate 73 06/26/20 12:58 Respiratory Rate 20 H 06/26/20 12:58 Blood Pressure 110/64 06/26/20 12:58 Pulse Oximetry 97 06/26/20 12:58 MDM - SOB/Dyspnea MDM Narrative: Medical decision making narrative: Sherwin presents here with concern for Covid infection. He has no signs of pulmonary embolism or cardiac cause. His x-ray here shows no acute abnormalities and his blood work is all normal. He is not having any dyspnea here and his pulse ox here is normal. We will test him for Covid and he is to self quarantine. He is to return if worsening. He understands agrees to plan. Lab Data: Labs: Lab Results 06/26/20 06/26/20 Range/Units 12:54 12:54 WBC 5.2 (4.0-10.0) 10^3/ uL RBC 4.01 L (4.1-5.3) 10^6/u L Hgb 12.5 (11.7-16.6) g/dL Hct 36.9 L (42.0-52.0) % MCV 92.0 (80-94) fL MCH 31.2 (28.0-34.0) pg MCHC 33.9 (30.0-36.0) g/dL RDW 11.7 L (12.1-15.1) % Plt Count 201 (130-400) 10^3/c mm MPV 10.7 H (7.4-10.4) fL Neut % (Auto) 80.0 % Lymph % (Auto) 14.4 % Baldwin % (Auto) 5.2 % Eos % (Auto) 0.0 % Baso % (Auto) 0.2 % Neut # (Auto) 4.17 (1.8-7.7) 10^3/u L Lymph # (Auto) 0.8 (0.8-4.8) 10^3/u L Baldwin # (Auto) 0.3 (0.2-0.9) 10^3/u L Eos # (Auto) 0.0 (0.0-0.8) 10^3/u L Baso # (Auto) 0.0 (0.0-0.1) 10^3/u L Nucleated RBC % (a uto) 0 % Nucleated RBCs # 0.0 /100WBC Sodium 133 L (136-145) mmol/L Potassium 4.7 (3.5-5.1) mmol/L Chloride 98 (98-107) mmol/L Carbon Dioxide 21 L (22-29) mmol/L Anion Gap 18.7 (5-19) BUN 54 H (8-23) mg/dL Creatinine 5.6 H* (0.7-1.2) mg/dL GFR Calculation 10.1 L (90-130) mL/min Glucose 266 H (65-115) mg/dL Calculated Osmolal ity 300 H (285-295) mOsm/k g Calcium 9.9 (8.5-10.5) mg/dL Total Bilirubin 0.2 (0.15-1.2) mg/dL AST 23 (0-40) U/L ALT 23 (0-41) U/L Alkaline Phosphata se 76 (40-130) IU/L NT-Pro-B Natriuret Pep 4524 H (0-125) pg/mL Total Protein 7.4 (6.6-8.7) g/dL Albumin 4.5 (3.5-5.2) g/dL Globulin 2.9 (1.3-4.6) g/dL Imaging Data^: CXR: Radiologist's impression: [place] [address] XRay Report Signed Patient: Sherwin Yates Unit #: [id number] : 1950 Age/Sex: 69 / M ADM Date: 06/26/20 Loc: ER Room/Bed: Attending Dr: Ordering Provider/Ordering MD: Bert Cavazos MD Date of Service: 06/26/20 Procedure(s): XR chest 1V portable [id number] Accession Number(s): [id number] Report Number: [id number] WS: [id number] Portable AP upright chest, 06/26/2020 Clinical Data: sob Comparison: Portable chest, 10/19/2019. Findings: There is a deformity of the right chest with right pleural thickening. There is blunting of the right costophrenic angle from pleural reaction. Left lung is clear. No pneumonia or pneumothorax is seen. No nodules, masses or effusions are seen. There are clips adjacent to the right trachea. Midline sternotomy sutures are present with mediastinal clips.. The heart is normal. The pulmonary vascularity is not increased. XR/XR chest 1V portable [id number] Impression: 1. Deformity of the right chest with pleural thickening unchanged. 2. Atherosclerosis. EKG Data^: EKG 1: Attestation: I personally reviewed and interpreted this EKG as follows: EKG Interpretation Date: 06/26/20 EKG interpretation time: 13:22 Interpretation: nsr hr [address] or t wave abnormalities qrs 138 qtc 448 Discharge Plan Discharge Patient Disposition: Home Clinical Impression: Suspected 2019-nCoV infection Condition: Stable Prescriptions: No Action hydralazine 50 mg tablet 50 mg PO TID RF: 0 furosemide 40 mg tablet 40 mg PO DAILY RF: 0 sevelamer HCl 800 mg tablet 1,600 mg PO .AFTER EACH MEAL RF: 0 doxazosin 1 mg tablet 2 mg PO BID RF: 0 Lantus U-100 Insulin 100 unit/mL solution 20 unit SUBCUT BEDTIME RF: 0 simvastatin 40 mg tablet 40 mg PO DAILY RF: 0 nitroglycerin [Nitrostat] 0.4 mg tablet, sublingual 0.4 mg SUBLINGUAL Q5M PRN (Reason: Chest Pain) RF: 0 metoprolol tartrate 50 mg tablet 50 mg PO BID RF: 0 pregabalin [Lyrica] 25 mg Capsule 25 mg PO BID PRN (Reason: UNKNOWN) RF: 0 RenaPlex 800 mcg- 12.5 mg Tablet 1 tab PO DAILY RF: 0 spironolactone 25 mg Tablet 25 mg PO BID Qty: 60 RF: 0 Aspir-81 81 mg Tablet,Delayed Release (Dr/Ec) 81 mg PO DAILY RF: 0 terazosin 5 mg capsule 5 mg PO BEDTIME RF: 0 Vitamin C Powder See Rx Instructions .ROUTE .COMPLEX RF: 0 nifedipine 90 mg tablet extended release 90 mg PO DAILY RF: 0 pantoprazole 40 mg tablet,delayed release (DR/EC) 40 mg PO QAM RF: 0 gentamicin 0.1 % cream See Rx Instructions .ROUTE .COMPLEX RF: 0 fluocinonide 0.05 % solution See Rx Instructions .ROUTE .COMPLEX RF: 0 chlorhexidine gluconate 0.12 % mouthwash 15 ml PO BID RF: 0 Vitamin D3 125 mcg (5,000 unit) Tablet 125 mcg PO BEDTIME RF: 0 NyQuil 1 - 2 cap PO PRN RF: 0 clonidine HCl 0.1 mg tablet 0.3 mg PO BID PRN (Reason: UNKNOWN) RF: 0 Discharge Orders: Discharge Order (Routine); Ordered 06/26/20 Ordered By: Bert Cavazos Referrals: Dany Dietz Jr, MD [Primary Care Provider] - Discharge Diet: Advance as tolerated Discharge Activity: Resume usual activity Patient Instructions: Dyspnea (ED) Coding Level of Care Code ED Brake Operator Helper for Chg Fwd Exam Comprehensive
[2020-06-26 12:58] VITALS: BP 110/64; PULSE 73; RESP 20; O2SAT 97
[2020-06-26 13:55] LABS: Basophils % 0.2 %; Hematocrit 36.9 % (42.0-52.0); Hemoglobin 12.5 g/dL (11.7-16.6); Lymphocytes # 0.8 10^3/uL (0.8-4.8); Lymphocytes % 14.4 %; Mean Corpuscular HGB Conc 33.9 g/dL (30.0-36.0); Mean Corpuscular Hemoglobin 31.2 pg (28.0-34.0); Mean Platelet Volume 10.7 fL (7.4-10.4); Monocytes # 0.3 10^3/uL (0.2-0.9); Monocytes % 5.2 %; Neutrophils # 4.17 10^3/uL (1.8-7.7); Nucleated Red Blood Cells % 0 %; Platelet Count 201 10^3/cmm (130-400); Red Blood Count 4.01 10^6/uL (4.1-5.3); Red Cell Distribution Width 11.7 % (12.1-15.1); White Blood Count 5.2 10^3/uL (4.0-10.0)
[2020-06-26 14:25] LABS: Alanine Aminotransferase 23 U/L (0-41); Albumin Level 4.5 g/dL (3.5-5.2); Alkaline Phosphatase 76 IU/L (40-130); Anion Gap 18.7 (5-19); Aspartate Amino Transferase 23 U/L (0-40); Blood Urea Nitrogen 54 mg/dL (8-23); Calcium 9.9 mg/dL (8.5-10.5); Carbon Dioxide 21 mmol/L (22-29); Chloride 98 mmol/L (98-107); Globulin 2.9 g/dL (1.3-4.6); Glomerular Filtration Rate 10.1 mL/min (90-130); Glucose 266 mg/dL (65-115); NT Pro B Type Natriuretic Pept 4524 pg/mL (0-125); Osmolality Calculated 300 mOsm/kg (285-295); Potassium 4.7 mmol/L (3.5-5.1); Sodium 133 mmol/L (136-145); Total Bilirubin 0.2 mg/dL (0.15-1.2); Total Protein 7.4 g/dL (6.6-8.7)
[2020-06-26 15:06] VITALS: BP 145/80; PULSE 72; RESP 16; TEMP 36.6; O2SAT 99
[2020-06-28 00:58] LABS: Quest SARS-CoV-2 RNA DETECTED (NOT DETECTED)
--- NOTE | 2020-06-28 09:30 | PC.NURSE ---
pt notified of COVID results.
== END 2020-06-26 15:09 | disposition home or self-care (01) ==
PROVIDERS: Emergency Provider Emergency Medicine; PCP Family Medicine
DX: U07.1 COVID-19 (principal); Z87.891 Personal history of nicotine dependence; Z95.1 Presence of aortocoronary bypass graft; I25.10 Atherosclerotic heart disease of native coronary artery without angina pectoris; N18.6 End stage renal disease; Z99.2 Dependence on renal dialysis; I13.11 Hypertensive heart and chronic kidney disease without heart failure, with stage 5 chronic kidney disease, or end stage renal disease; E11.22 Type 2 diabetes mellitus with diabetic chronic kidney disease; Z79.899 Other long term (current) drug therapy; Z79.4 Long term (current) use of insulin; J44.9 Chronic obstructive pulmonary disease, unspecified; D64.9 Anemia, unspecified; E78.5 Hyperlipidemia, unspecified; Z79.82 Long term (current) use of aspirin; Z86.73 Personal history of transient ischemic attack (TIA), and cerebral infarction without residual deficits; E11.21 Type 2 diabetes mellitus with diabetic nephropathy; B19.20 Unspecified viral hepatitis C without hepatic coma
CPT/HCPCS: 12345; 71045; 80053; 83880; 85025; 87635; 93005; 99283

== ENCOUNTER 2021-08-04 12:28 | Inpatient (IN) | payer MEDICARE, OTHER, SELFPAY ==
--- NOTE | 2021-08-04 12:55 | ECG_ITS ---
[facility] Test Date: 2021-08-04 Pat Name: Sherwin Yates Department: Room: Gender: Male Technical Information Specialist: : 1950 Requested By: Juliette Lindsey Order Number: [id number] Reading MD: XIMENA BETANCOURT Measurements Intervals [place] Rate: 57 P: 30 SC: 145 QRS: -66 QRSD: 134 T: 8 QT: 457 QTc: 445 Interpretive Statements SINUS BRADYCARDIA RIGHT BUNDLE BRANCH BLOCK [120+ ms QRS DURATION, UPRIGHT V1, 40+ ms S IN I/aVL/V4/V5/V6] LEFT ANTERIOR FASCICULAR BLOCK [QRS AXIS <= -45, QR IN I, RS IN II] INTERPRETATION BASED ON A DEFAULT AGE OF 40 YEARS Compared to ECG 06/26/2020 13:22:59 Left anterior fascicular block now present Sinus rhythm no longer present Left-axis deviation no longer present Electronically Signed On 08-04-2021 18:59:46 DRAW IN HAND by XIMENA BETANCOURT [id number]
--- NOTE | 2021-08-04 12:55 | XR_ITS ---
WS: [id number] Exam: XR chest 1V portable [id number] Date/Time of Exam: 08/04/2021 12:59 PM Reason For Exam: chest pain Comparison 06/26/2020. The lungs are fully expanded. Stable appearing right-sided calcified pleural plaque formation and ple ural thickening. Heart size is normal. Signs of previous CABG surgery. No pleural effusions. The medi astinum is not widened. XR/XR chest 1V portable [id number] IMPRESSION: 1. No acute cardiopulmonary finding. 2. Chronic right-sided pleural changes as above.
[2021-08-04 13:39] VITALS: BP 118/66; PULSE 60; RESP 18; TEMP 36.9; O2SAT 99; BMI 25.5
--- NOTE | 2021-08-04 14:03 | ED_ITS ---
HPI - Chest Pain General: Chief Complaint: Chest Pain Stated Complaint: CHEST PAIN Time Seen by Provider: 08/04/21 13:57 History of Present Illness: HPI narrative: 73-year-old male began having chest pain this morning while walking from local grocery store. He took 3 nitro including 1 in the waiting room. He had some diaphoresis with it and some shortness of breath patient also has end-stage renal disease and is on peritoneal dialysis. Chest pain he rates a 3-4 out of 10. MD complaint: chest pain Pertinent past history: coronary artery disease Onset (ago): minute(s) Timing of current episode: episodic Prior episodes: Yes Onset: during exertion Pain location: substernal and left chest Severity: severe Quality: tightness and sharp Relieving factors: nitroglycerin Exacerbating factors: nothing Associated symptoms: Deny abdominal pain, diaphoresis, dyspnea, fever(s), leg edema, nausea, palpitations, sense of impending doom, syncope or vomiting Treatment prior to arrival: nitroglycerin Review of Systems Const: Denies: fever(s) or diaphoresis ENMT: Denies: throat pain, ear or mastoid pain, nasal discharge or nasal congestion Card: Denies: palpitations or syncope Resp: Denies: dyspnea GI: Denies: abdominal pain, nausea or vomiting : Denies: flank pain, dysuria, urinary frequency or urinary urgency Skin/Breast: Denies: rash or pruritus PFSH ED PFSH: Medical History Anemia CAD (coronary artery disease) Carotid stenosis COPD (chronic obstructive pulmonary disease) CVA (cerebral vascular accident) Diabetes Dyslipidemia Continue statin ESRD (end stage renal disease) Peritoneal dialysis GERD (gastroesophageal reflux disease) Hepatitis C Hypersomnia Hypertension Improved control Neuropathy Peritoneal dialysis status started april of 2019 Sleep apnea Surgical History History of carotid endarterectomy Bilateral History of colonoscopy with polypectomy Patient had a normal colonoscopy he will not require further screening colonoscopies due to his age of 69. History of coronary artery bypass graft Family History Denies family history of Anesthesia complication Bleeding disorder Social History Smoking and tobacco status: former smoker Second hand smoke exposure: No Alcohol intake: never Adopted: No Caregiver/support person: Yes Lives independently: Yes Household members: spouse Housing: House Marital status: Highest education level completed: High School Graduate service: Yes (3 years ) branch: [employer] Current occupational status: retired History of recent travel: No Sexually active: No Current gender identity: Male María/Christianity: Mormonism Special maría needs: No Agree to transfusion: No Financial difficulty paying for basics: Decline to Answer Physical Exam Const: COMMON NORMALS: no acute distress GENERAL APPEARANCE: cooperative and comfortable ORIENTATION/CONSCIOUSNESS: Yes awake, Yes oriented to person, Yes oriented to place and Yes oriented to time HENMT: COMMON NORMALS: normocephalic, atraumatic and hearing grossly normal bilaterally HEAD & SCALP: normocephalic and atraumatic Neck/C-Spine: COMMON NORMALS: no JVD Lymph: LYMPHATIC: no lymphadenopathy noted and no lymphedema noted Resp: COMMON NORMALS: normal respiratory effort, No retractions, No use of accessory muscles and clear to auscultation bilaterally AUSCULTATION: clear to auscultation bilaterally Cardio: COMMON NORMALS: no JVD, regular rate, regular rhythm and No murmurs present (Cardio) RATE: regular rate RHYTHM: regular rhythm GI: COMMON NORMALS: Soft to palpation and No hepatosplenomegaly present AUSCULTATION: Yes normoactive bowel sounds PALPATION: Yes Soft to palpation, No Tenderness to palpation present (GI), No Guarding due to palpation present (GI) and Yes No hepatosplenomegaly present Extremity: COMMON NORMALS: normal to inspection, capillary refill normal, no clubbing, cyanosis or edema, no calf tenderness and no pedal edema Neuro: SENSORIUM/ORIENTATION: Yes oriented to person, Yes oriented to place and Yes oriented to time Skin: COMMON NORMALS: no rashes or lesions noted GENERAL SKIN EXAM: no rashes or lesions noted Course Vital Signs: Vital signs: Vital Signs Temperature 97.1 F L 08/06/21 05:00 Pulse Rate 64 08/06/21 10:37 Respiratory Rate 18 08/06/21 10:37 Blood Pressure 169/65 08/06/21 05:00 Pulse Oximetry 98 08/06/21 10:37 MDM - Chest Pain MDM Narrative: Medical decision making narrative: Discussed with hospitalist. Patient has responsiveness to the nitro. He does report recently having angiogram although we do not have documentation of the report to see what what it was found. admit the patient will Consult nephrology. And cardiology. Old records are being sought at the previous facility. Lab Data: Labs: Lab Results 08/04/21 08/04/21 08/04/21 14:24 14:24 14:24 WBC 7.4 10^3/uL 10^3/ uL (4.0-10.0) RBC 3.78 10^6/uL L 10 ^6/uL (4.1-5.3) Hgb 11.9 g/dL g/dL (11.7-16.6) Hct 35.8 % L % (42.0-52.0) MCV 94.7 fl H fl (80-94) MCH 31.5 pg pg (28.0-34.0) MCHC 33.2 g/dL g/dL (30.0-36.0) RDW 12.1 % % (12.1-15.1) Plt Count 187 10^3/cmm 10^3 /cmm (130-400) MPV 10.6 fL H fL (7.4-10.4) Neut % (Auto) 80.8 % % Lymph % (Auto) 12.8 % % [place] % (Auto) 4.6 % % Eos % (Auto) 1.1 % % Baso % (Auto) 0.3 % % Neut # (Auto) 5.94 10^3/uL 10^3 /uL (1.8-7.7) Lymph # (Auto) 0.9 10^3/uL 10^3/ uL (0.8-4.8) [place] # (Auto) 0.3 10^3/uL 10^3/ uL (0.2-0.9) Eos # (Auto) 0.1 10^3/uL 10^3/ uL (0.0-0.8) Baso # (Auto) 0.0 10^3/uL 10^3/ uL (0.0-0.1) Nucleated RBC % (a uto) 0 % % Nucleated RBCs # 0.0 /100WBC /100W BC Sodium 138 mmol/L mmol/L (136-145) Potassium 5.3 mmol/L H mmol /L (3.5-5.1) Chloride 100 mmol/L mmol/L (98-107) Carbon Dioxide 22 mmol/L mmol/L (22-29) Anion Gap 21.3 H (5-19) BUN 43 mg/dL H mg/dL (8-23) Creatinine 5.4 mg/dL H mg/dL (0.7-1.2) GFR Calculation 10.6 mL/min L mL/ min (90-130) Glucose 116 mg/dL H mg/dL (65-115) Calculated Osmolal ity 298 mOsm/kg H mOs m/kg (285-295) Calcium 9.7 mg/dL mg/dL (8.5-10.5) Total Bilirubin 0.3 mg/dL mg/dL (0.15-1.2) AST 20 U/L U/L (0-40) ALT 16 U/L U/L (0-41) Alkaline Phosphata se 64 IU/L IU/L (40-130) Troponin T Baselin e 11 ng/L ng/L (0-15) Troponin T 120 Min shaina Delta Troponin T NT-Pro-B Natriuret Pep 52194 pg/mL H pg/ mL (0-125) Total Protein 7.6 g/dL g/dL (6.6-8.7) Albumin 4.5 g/dL g/dL (3.5-5.2) Globulin 3.1 g/dL g/dL (1.3-4.6) 08/04/21 16:24 WBC RBC Hgb Hct MCV MCH MCHC RDW Plt Count MPV Neut % (Auto) Lymph % (Auto) [place] % (Auto) Eos % (Auto) Baso % (Auto) Neut # (Auto) Lymph # (Auto) [place] # (Auto) Eos # (Auto) Baso # (Auto) Nucleated RBC % (a uto) Nucleated RBCs # Sodium Potassium Chloride Carbon Dioxide Anion Gap BUN Creatinine GFR Calculation Glucose Calculated Osmolal ity Calcium Total Bilirubin AST ALT Alkaline Phosphata se Troponin T Baselin e Troponin T 120 Min shaina 9.19 ng/L ng/L (0-15) Delta Troponin T -1.81 ABS# L ABS# (0-10) NT-Pro-B Natriuret Pep Total Protein Albumin Globulin Discharge Plan Discharge Patient Disposition: Admitted As Inpatient Admit Provider: Deo Mccarthy Clinical Impression: Unstable angina pectoris, Anemia, History of coronary artery bypass graft, Congestive heart failure Condition: Stable Discharge Diet: Cardiac Discharge Activity: Resume usual activity Coding Level of Care Code ED Pull Over Machine Operator for Chg Fwd Exam Comprehensive
[2021-08-04] MEDS: aspirin 81 mg Chew Tablet 324 MG PO (14:17)
[2021-08-04 14:50] LABS: Basophils % 0.3 %; Eosinophils # 0.1 10^3/uL (0.0-0.8); Eosinophils % 1.1 %; Hematocrit 35.8 % (42.0-52.0); Hemoglobin 11.9 g/dL (11.7-16.6); Lymphocytes # 0.9 10^3/uL (0.8-4.8); Lymphocytes % 12.8 %; Mean Corpuscular HGB Conc 33.2 g/dL (30.0-36.0); Mean Corpuscular Hemoglobin 31.5 pg (28.0-34.0); Mean Corpuscular Volume 94.7 fl (80-94); Mean Platelet Volume 10.6 fL (7.4-10.4); Monocytes # 0.3 10^3/uL (0.2-0.9); Monocytes % 4.6 %; Neutrophils # 5.94 10^3/uL (1.8-7.7); Neutrophils % 80.8 %; Nucleated Red Blood Cells % 0 %; Platelet Count 187 10^3/cmm (130-400); Red Blood Count 3.78 10^6/uL (4.1-5.3); Red Cell Distribution Width 12.1 % (12.1-15.1); White Blood Count 7.4 10^3/uL (4.0-10.0)
--- NOTE | 2021-08-04 14:55 | ECG_ITS ---
[facility] Test Date: 2021-08-04 Pat Name: Sherwin Yates Department: Room: Gender: Male Driller Portable: : 1950 Requested By: Juliette Lindsey Order Number: [id number] Reading MD: XIMENA BETANCOURT Measurements Intervals [place] Rate: 56 P: 62 [place]: 135 QRS: -65 QRSD: 138 T: 10 QT: 449 QTc: 435 Interpretive Statements SINUS BRADYCARDIA RIGHT BUNDLE BRANCH BLOCK [120+ ms QRS DURATION, UPRIGHT V1, 40+ ms S IN I/aVL/V4/V5/V6] LEFT ANTERIOR FASCICULAR BLOCK [QRS AXIS <= -45, QR IN I, RS IN II] Compared to ECG 08/04/2021 12:36:17 No significant changes Electronically Signed On 08-04-2021 19:04:26 TRACK HOE OPERATOR by XIMENA BETANCOURT [id number]
[2021-08-04 15:08] LABS: Troponin(5th) Baseline 11 ng/L (0-15)
[2021-08-04] MEDS: nitroglycerin drip 50 MG/250 ML PREMIX IV (15:19)
[2021-08-04 15:34] LABS: Alanine Aminotransferase 16 U/L (0-41); Albumin Level 4.5 g/dL (3.5-5.2); Alkaline Phosphatase 64 IU/L (40-130); Anion Gap 21.3 (5-19); Aspartate Amino Transferase 20 U/L (0-40); Blood Urea Nitrogen 43 mg/dL (8-23); Calcium 9.7 mg/dL (8.5-10.5); Carbon Dioxide 22 mmol/L (22-29); Chloride 100 mmol/L (98-107); Globulin 3.1 g/dL (1.3-4.6); Glomerular Filtration Rate 10.6 mL/min (90-130); Glucose 116 mg/dL (65-115); NT Pro B Type Natriuretic Pept 11494 pg/mL (0-125); Osmolality Calculated 298 mOsm/kg (285-295); Potassium 5.3 mmol/L (3.5-5.1); Sodium 138 mmol/L (136-145); Total Bilirubin 0.3 mg/dL (0.15-1.2); Total Protein 7.6 g/dL (6.6-8.7)
[2021-08-04 15:37] LABS: Creatinine Clr Calc Pharmacy 13.7003
[2021-08-04 17:00] LABS: Troponin 5 2HR 9.19 ng/L (0-15)
[2021-08-04 17:04] LABS: Troponin 5 2HR Delta -1.81 ABS# (0-10)
--- NOTE | 2021-08-04 17:35 | PM.CONSULT ---
Providers/Reason For Consult Consulting Physician/Specialty*: Dr. Montoya, cardiology Reason for Consult*: Chest pain, history of CAD Primary Care Provider: Elias Conteh MD History of Present Illness History of Present Illness Sherwin Yates is a 70 year old male with past medical history of coronary artery disease status post bypass surgery by Dr. Metz in 2009, end-stage renal disease on peritoneal dialysis was being evaluated for renal transplant at [facility] in [place], carotid artery disease status post bilateral carotid endarterectomy, COPD, obstructive sleep apnea on CPAP, gastroesophageal reflux disease history of hepatitis C, hypertension, diabetes mellitus and history of CVA. As a part of pre transplant work up, he underwent cardiac cathetarization for abnormal PET scan at [facility] in [place] in 05/2021. He was at [employer] shopping with his and developed chest pain. He did not feel well and hence went back to his car. He developed crushing/ twisting chest pain with radiation to his jaws and took Sl NTGx 3. He also felt nauseated and started retching. No vomiting though. His drove him to the ER and he was placed on NTG gtt. He is CP free at the time of evaluation. He states he is hungry and would like to have his dialysis. Review of Systems Const: Denies: fever(s) or diaphoresis ENMT: Denies: throat pain, nasal discharge or nasal congestion Card: Denies: palpitations or syncope Resp: Denies: dyspnea GI: Denies: abdominal pain, nausea, vomiting or hematochezia : Denies: flank pain, dysuria, urinary frequency, urinary urgency or hematuria Musc: Reports: extremity swelling Skin/Breast: Denies: rash or pruritus Neuro: Denies: frequent falls Psych: Denies: anxiety or depression Meds/Allergies Home Medications and Allergies Home Medications Medication Instructions Recorded Confirmed Last Taken Type furosemide 40 mg tablet 40 mg PO QAM 09/05/19 08/04/21 08/04/21 History insulin glargine 100 unit/mL 15 - 20 unit SUBCUT BEDTIME 09/05/19 08/04/21 06/25/20 History subcutaneous solution metoprolol tartrate 50 mg tablet 50 mg PO BID 09/05/19 08/04/21 08/04/21 09:00 History nitroglycerin 0.4 mg sublingual 0.4 mg SUBLINGUAL Q5M PRN 09/05/19 08/04/21 10/19/19 History tablet sevelamer HCl 800 mg tablet 800 - 2,400 mg PO .AFTER EACH MEAL 09/05/19 08/04/21 10/19/19 History tab simvastatin 40 mg tablet 40 mg PO BEDTIME 09/05/19 08/04/21 08/03/21 History RenaPlex 1 tab PO DAILY 10/19/19 08/04/21 06/25/20 History pregabalin [Lyrica] 25 mg PO BID PRN 10/19/19 08/04/21 10/12/19 History ascorbic acid (vitamin C) [Vitamin See Rx Instructions .ROUTE .COMPLEX 06/26/20 08/04/21 06/25/20 History C] aspirin [Aspir-81] 81 mg PO QAM 06/26/20 08/04/21 08/04/21 09:00 History chlorhexidine gluconate 15 ml PO BID PRN 06/26/20 08/04/21 Unknown History cholecalciferol (vitamin D3) 125 mcg PO BEDTIME 06/26/20 08/04/21 06/26/20 History [Vitamin D3] clonidine HCl 0.3 mg PO QPM 06/26/20 08/04/21 08/03/21 History pantoprazole 40 mg PO QAM 06/26/20 08/04/21 08/04/21 History terazosin 5 mg PO BEDTIME 06/26/20 08/04/21 06/25/20 History hydralazine 50 mg tablet 50 mg PO TID tab 07/22/21 08/04/21 08/04/21 09:00 History doxazosin 4 mg PO BID 08/04/21 08/04/21 08/04/21 09:00 History multivitamin 1 tab PO DAILY 08/04/21 08/04/21 Unknown History nifedipine 60 mg PO QAM 08/04/21 08/04/21 08/04/21 09:00 History spironolactone 25 mg PO BID 08/04/21 08/04/21 08/04/21 09:00 History Allergies Allergy/AdvReac Type Severity Reaction Status Date / Time duloxetine [From Cymbalta] Allergy Unknown Unknown Verified 08/04/21 17:02 acetaminophen Allergy Unknown Verified 08/04/21 17:02 trazodone Allergy ADR-Cramping Verified 08/04/21 17:02 of the Muscles Current Medications Current Medications Generic Name Dose Route Start Last Admin Trade Name Freq PRN Reason Stop Dose Admin Nitroglycerin/Dextrose 50 mg in 250 mls @ 0 mls/hr 08/04/21 14:15 08/04/21 15:19 Nitroglycerin Drip IV 10 mcg/min .Q0M WOO 3 mls/hr Administration Protocol Per Protocol PFSH Acute PFSH: Medical History Anemia CAD (coronary artery disease) Carotid stenosis COPD (chronic obstructive pulmonary disease) CVA (cerebral vascular accident) Diabetes Dyslipidemia Continue statin ESRD (end stage renal disease) Peritoneal dialysis GERD (gastroesophageal reflux disease) Hepatitis C Hypersomnia Hypertension Improved control Neuropathy Peritoneal dialysis status started april of 2019 Sleep apnea Surgical History History of carotid endarterectomy Bilateral History of colonoscopy with polypectomy Patient had a normal colonoscopy he will not require further screening colonoscopies due to his age of 69. History of coronary artery bypass graft Family History Denies family history of Anesthesia complication Bleeding disorder Social History Smoking and tobacco status: former smoker Second hand smoke exposure: No Alcohol intake: never Adopted: No Caregiver/support person: Yes Lives independently: Yes Household members: spouse Housing: House Marital status: Highest education level completed: High School Graduate service: Yes (3 years ) branch: [employer] Current occupational status: retired History of recent travel: No Sexually active: No Current gender identity: Male María/Alevism: Adventism Special maría needs: No Agree to transfusion: No Financial difficulty paying for basics: Decline to Answer Vitals/I&O/Wt Last Vital Signs Temp 98.5 F 08/04/21 13:39 Pulse 60 08/04/21 13:39 Resp 18 08/04/21 13:39 BP 118/66 08/04/21 13:39 Pulse Ox 99 08/04/21 13:39 Weight last 48 hrs Weight 178 lb Physical Exam Narrative: EXAM NARRATIVE: GENERAL: Averagely built and averagely nourished in no acute distress HEENT: Pupils equal round reactive to light. No pallor or icterus. NECK: No JVD, carotid endarterectomy scar seen CARDIOVASCULAR SYSTEM: S1-S2 regular. No murmur rubs or gallops. RESPIRATORY SYSTEM: midline sternotomy scar+, Chest clear to auscultation. No wheezes rhonchi or rubs heard. No use of accessory muscles. ABDOMEN: Soft, nontender and nondistended. Normal bowel sounds present. EXTREMITIES: No cyanosis. [No edema]. No signs of chronic venous insufficiency. PHARMACY INFORMATICS MANAGER: Patient is alert oriented ?3. No focal neurological deficits. SKIN: Normal turgor and temperature. PSYCH: Normal insight and judgment. Data Other Data: Other data: Transthoracic echocardiogram 20 October 2019 CONCLUSIONS 1-Normal left ventricular cavity size. Normal left ventricular systolic function. Left ventricular ejection fraction is estimated at 55 %. No regional wall motion abnormalities. 2-The right ventricle is normal in size and function. Moderate pulmonary hypertension, RVSP 44 mmHg. 3-Severe aortic valve calcification. Moderate aortic valve stenosis, mean gradient 8.8 mmHg, KATY 1.3 cm squared. 4-Moderately thickened mitral valve. No mitral valve stenosis. Moderate mitral valve regurgitation. 5-Thickened tricuspid valve. Mild tricuspid valve regurgitation. 6-There is no pericardial effusion. 7-When compared to the prior echocardiogram dated 05/23/2015 there is moderate aortic stenosis now. EKG showed sinus bradycardia at 57 bpm. Left anterior fascicular block. Right bundle branch block. Records from [place] received and reviewed: [facility] (05/29/21): Occluded LM. RCA occluded proximally (new from prior 1 year back), patent large SVG to rPDA. 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 Patent BYRD to LAD, mild to moderate disease of the LAD, backfills the diagonal vessels. RHC with normal filling and pulmonary pressure with normal cardiac output. A&P Assessment and plan (1) Chest pain: Imdur per patient was stopped after recent LHC in 05/2021. -restart imdur and uptitrate based on BP. -May d/c NTG gtt. -No EKG changes and normal troponin. -continue metoprolol, ASA, statin Status: Resolved Qualifiers: Chest pain type: unspecified Qualified Code(s): R07.9 - Chest pain, unspecified (2) CAD (coronary artery disease): s/p CABG with patent BYRD to LAD and patent SVG to rPDA. -occluded LM and Px RCA. Status: Acute Qualifiers: Associated angina: angina presence unspecified Coronary Disease-Associated Artery/Lesion type: bypass graft [place] vs. transplanted heart: [place] heart Qualified Code(s): I25.810 - Atherosclerosis of coronary artery bypass graft(s) without angina pectoris (3) Congestive heart failure: received lasix 40 mg IV x1 in ER Status: Acute Qualifiers: Heart failure chronicity: acute Heart failure type: combined systolic and diastolic Qualified Code(s): I50.41 - Acute combined systolic (congestive) and diastolic (congestive) heart failure (4) Hypertension: BP elevated -restart home meds Status: Acute Qualifiers: Hypertension type: essential hypertension Qualified Code(s): I10 - Essential (primary) hypertension (5) Dyslipidemia: Status: Acute (6) ESRD (end stage renal disease): will need dialysis Status: Acute Additional A&P Information Hyperkalemia Bifascicular block Insulin-dependent diabetes mellitus Gastroesophageal reflux disease Thank you for allowing me to participate in patient's care. Please feel free to call with questions or concerns. Consult Attestations Time Spent in Patient Care: Greater than 35 minutes (>than 50% of time spent in counselling and/or direct pt care on unit). Coding Level of Care Code Acute Accounting Machine Operator for Chg Fwd Diagnoses Chest pain R07.9 Chest pain type: unspecified CAD (coronary artery disease) I25.810 Associated angina: angina presence unspecified Coronary Disease-Associated Artery/Lesion type: bypass graft [place] vs. transplanted heart: [place] heart Congestive heart failure I50.41 Heart failure chronicity: acute Heart failure type: combined systolic and diastolic Hypertension I10 Hypertension type: essential hypertension Dyslipidemia E78.5 ESRD (end stage renal disease) N18.6
[2021-08-04 17:41] VITALS: BP 144/63; PULSE 64; RESP 13; O2SAT 98
--- NOTE | 2021-08-04 18:55 | ECG_ITS ---
[facility] Test Date: 2021-08-04 Pat Name: Sherwin Yates Department: Room: Gender: Male Calibration Engineer: : 1950 Requested By: Juliette Lindsey Order Number: [id number] Brittani MD: Nella Montoya M.D. Measurements Intervals [place] Rate: 59 P: 35 [place]: 145 QRS: -59 QRSD: 135 T: 6 QT: 439 QTc: 438 Interpretive Statements SINUS BRADYCARDIA RIGHT BUNDLE BRANCH BLOCK [120+ ms QRS DURATION, UPRIGHT V1, 40+ ms S IN I/aVL/V4/V5/V6] LEFT ANTERIOR FASCICULAR BLOCK [QRS AXIS <= -45, QR IN I, RS IN II] Compared to ECG 08/04/2021 14:52:45 No significant changes Electronically Signed On 08-05-2021 17:57:42 SR. STRATEGIC SOURCING MANAGER by Nella Montoya M.D. [id number]
[2021-08-04 19:45] VITALS: BP 159/71; PULSE 66; RESP 15; O2SAT 97
[2021-08-04] MEDS: atorvastatin 40 mg Tablet PO (21:27)
[2021-08-04] MEDS: isosorbide mononitrate ER 30 mg Tablet PO (21:27)
[2021-08-04 21:28] LABS: Troponin 5 6HR 9.88 ng/L (0-15)
[2021-08-04 21:34] VITALS: BP 169/70; PULSE 71; RESP 16; O2SAT 98
[2021-08-04 21:38] LABS: Troponin 5 6HR Delta -1.12 ng/L (0-12)
[2021-08-04] MEDS: metoprolol tartrate 50 mg Tablet PO (21:54)
[2021-08-04 23:23] VITALS: BP 175/77; PULSE 75; RESP 16; O2SAT 98
--- NOTE | 2021-08-04 23:24 | PM.HP ---
Providers/Chief Complaint Admitting Physician: Deo Mccarthy Primary Care Provider: Elias Conteh MD Chief Complaint: CHEST PAIN History of Present Illness 70 year old with past medical history significant for hypertension, dyslipidemia, diabetes mellitus, hepatitis C, COVID-19 infection, end stage renal disease on peritoneal dialysis, and coronary artery disease who is presenting to ER with chest pain. Patient stated he was shopping with his when he started to feel chest tightness. He took two SL nitro after which this did now improve which prompted ER visit. Denied shortness of breath. Did note episode of nausea and vomiting. Denied any recent fever or chills. No abdominal pain or distention. Has been tolerating his PD at home. Upon arrival to ER he was seen by cardiology. Started on nitro drip after which his chest pain improved. He was noted to be hypertensive for which his home regimen was restarted. Additionally he was given Lasix 40 mg IV x 1. Lab work up on arrival showed a WBC of 7.4, hemoglobin of 11.9, hematocrit of 35.8 and a platelet count of 187. Sodium of 138, potassium of 5.3, chloride of 22, bicarb of 22, BUN of 43 and a creatinine of 5.3. Delta Troponin of negative 1.81. Medications/Allergies Home Medications Medication Instructions Recorded Confirmed Last Taken Type furosemide 40 mg tablet 40 mg PO QAM 09/05/19 08/04/21 08/04/21 History insulin glargine 100 unit/mL 15 - 20 unit SUBCUT BEDTIME 09/05/19 08/04/21 06/25/20 History subcutaneous solution metoprolol tartrate 50 mg tablet 50 mg PO BID 09/05/19 08/04/21 08/04/21 09:00 History nitroglycerin 0.4 mg sublingual 0.4 mg SUBLINGUAL Q5M PRN 09/05/19 08/04/21 10/19/19 History tablet sevelamer HCl 800 mg tablet 800 - 2,400 mg PO .AFTER EACH MEAL 09/05/19 08/04/21 10/19/19 History tab simvastatin 40 mg tablet 40 mg PO BEDTIME 09/05/19 08/04/21 08/03/21 History RenaPlex 1 tab PO DAILY 10/19/19 08/04/21 06/25/20 History pregabalin [Lyrica] 25 mg PO BID PRN 10/19/19 08/04/21 10/12/19 History ascorbic acid (vitamin C) [Vitamin See Rx Instructions .ROUTE .COMPLEX 06/26/20 08/04/21 06/25/20 History C] aspirin [Aspir-81] 81 mg PO QAM 06/26/20 08/04/21 08/04/21 09:00 History chlorhexidine gluconate 15 ml PO BID PRN 06/26/20 08/04/21 Unknown History cholecalciferol (vitamin D3) 125 mcg PO BEDTIME 06/26/20 08/04/21 06/26/20 History [Vitamin D3] clonidine HCl 0.3 mg PO QPM 06/26/20 08/04/21 08/03/21 History pantoprazole 40 mg PO QAM 06/26/20 08/04/21 08/04/21 History terazosin 5 mg PO BEDTIME 06/26/20 08/04/21 06/25/20 History hydralazine 50 mg tablet 50 mg PO TID tab 07/22/21 08/04/21 08/04/21 09:00 History doxazosin 4 mg PO BID 08/04/21 08/04/21 08/04/21 09:00 History multivitamin 1 tab PO DAILY 08/04/21 08/04/21 Unknown History nifedipine 60 mg PO QAM 08/04/21 08/04/21 08/04/21 09:00 History spironolactone 25 mg PO BID 08/04/21 08/04/21 08/04/21 09:00 History Allergies Allergy/AdvReac Type Severity Reaction Status Date / Time duloxetine [From Cymbalta] Allergy Unknown Unknown Verified 08/04/21 17:02 acetaminophen Allergy Unknown Verified 08/04/21 17:02 trazodone Allergy ADR-Cramping Verified 08/04/21 17:02 of the Muscles PFSH Acute PFSH: Medical History Anemia CAD (coronary artery disease) Carotid stenosis COPD (chronic obstructive pulmonary disease) CVA (cerebral vascular accident) Diabetes Dyslipidemia Continue statin ESRD (end stage renal disease) Peritoneal dialysis GERD (gastroesophageal reflux disease) Hepatitis C Hypersomnia Hypertension Improved control Neuropathy Peritoneal dialysis status started april of 2019 Sleep apnea Surgical History History of carotid endarterectomy Bilateral History of colonoscopy with polypectomy Patient had a normal colonoscopy he will not require further screening colonoscopies due to his age of 69. History of coronary artery bypass graft Family History Denies family history of Anesthesia complication Bleeding disorder Social History Smoking and tobacco status: former smoker Second hand smoke exposure: No Alcohol intake: never Adopted: No Caregiver/support person: Yes Lives independently: Yes Household members: spouse Housing: House Marital status: Highest education level completed: High School Graduate service: Yes (3 years ) branch: [employer] Current occupational status: retired History of recent travel: No Sexually active: No Current gender identity: Male María/Yazdanism: Jain Special maría needs: No Agree to transfusion: No Financial difficulty paying for basics: Decline to Answer Vitals/I&O/Wt Last Vital Signs Temp 98.2 F 08/05/21 04:00 Pulse 72 08/05/21 04:30 Resp 16 08/05/21 04:30 BP 196/86 08/05/21 04:30 Pulse Ox 97 08/05/21 04:30 08/04/21 08/04/21 08/05/21 14:59 22:59 06:59 Intake Total 78.95 / 78.95 Balance 78.95 / 78.95 Weight last 48 hrs Weight 85.729 kg Weight 80.739 kg Physical Exam Narrative: EXAM NARRATIVE: General : Alert awake, no distress HEENT : Grossly unremarkable CVS : RRR Chest : Non-labored respiration ABD; Soft NT,ND Ext. No edema Data : 08/05/21 03:38 08/05/21 03:38 A&P Assessment and plan (1) Chest pain: Status: Acute (2) History of colonoscopy with polypectomy: Status: Resolved (3) Congestive heart failure: Status: Acute Qualifiers: Heart failure chronicity: acute Heart failure type: combined systolic and diastolic Qualified Code(s): I50.41 - Acute combined systolic (congestive) and diastolic (congestive) heart failure (4) CAD (coronary artery disease): Status: Acute Qualifiers: Coronary Disease-Associated Artery/Lesion type: bypass graft [place] vs. transplanted heart: [place] and [place] heart Associated angina: angina presence unspecified Qualified Code(s): I25.810 - Atherosclerosis of coronary artery bypass graft(s) without angina pectoris (5) Diabetes: Status: Acute (6) Dyslipidemia: Status: Acute (7) ESRD (end stage renal disease): Status: Acute (8) COPD (chronic obstructive pulmonary disease): Status: Acute Additional A&P Information Chest pain hx of CAD s/p CABG Continue nitro drip Wean as tolerated Cardiology on board Imdur 30 mg PO daily resumed Aspirin / Statin / Metoprolol resumed Monitor on telemetry Hypertension Imdur 30 mg po daily Hydralazine 50 mg PO TID Metoprolol 50 mg PO BID Aldactone 50 mg PO BID - HOLD due to hyperkalemia Nifedipine 60 mg PO Qam Catapres 0.3 mg PO x1 - resume PRN ESRD on PD Nephrology consult to resume PD Additional Medical Problems Diabetes Mellitus Hyperlipidemia Hx of Hepatitis C COPD Hx of CVA BPH DVT ppx Heparin Attestations Medical Necessity Statement*: Anticipate > 2 midnight stay in hospital for eval and treatment Time Spent in Patient Care: Greater than 35 minutes (>than 50% of time spent in counselling and/or direct pt care on unit). 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 transplanted heart: [place] and [place] heart Associated angina: angina presence unspecified Diabetes E11.9 Dyslipidemia E78.5 ESRD (end stage renal disease) N18.6 COPD (chronic obstructive pulmonary disease) J44.9
[2021-08-04 23:58] VITALS: BP 175/77; PULSE 75; RESP 16; O2SAT 98
[2021-08-05] VITALS (36 sets, daily range): BP systolic 143–196; BP diastolic 65–111; PULSE 63–78; RESP 11–30; TEMP 36.5–36.8; O2SAT 93–99
[2021-08-05 01:00] LABS: Glucose Point of Care 242 mg/dL (70-110)
[2021-08-05] MEDS: insulin lispro 100 unit/1 mL SUBCUT ×3 (01:19→18:09)
[2021-08-05] MEDS: spironolactone 25 mg Tablet PO (01:19)
[2021-08-05] MEDS: hyDRALAzine 50 mg Tablet PO ×4 (01:19→20:05)
[2021-08-05] MEDS: pregabalin 25 mg Capsule PO (01:24)
--- NOTE | 2021-08-05 01:32 | PC.NURSE ---
Patient arrived to the floor from the ED after report was received via phone. Patient is alert and oriented. Patient has been oriented to his room and call light. When patient arrived, patient states They haven't given me half the medications I take at home and I haven't done my peritoneal dialysis. I do it once a day at 1:30 pm. Patient's blood pressure was 180s/100s and patient c/o 7/10 chest pain. Nitro drip titrated up. Dr. Mccarthy notified of patient's complaints about home medications and PD. Dr. cMcarthy also of being unable to titrate nitro drip off due to elevated blood pressure and chest pain.
[2021-08-05] MEDS: cloNIDine 0.1 mg Tablet 0.3 MG PO (03:51)
[2021-08-05] MEDS: pantoprazole DR 40 mg Tablet PO (03:51)
[2021-08-05] MEDS: aspirin 81 mg EC Tablet PO (03:51)
[2021-08-05 04:09] LABS: Basophils % 0.4 %; Eosinophils # 0.1 10^3/uL (0.0-0.8); Eosinophils % 1.6 %; Hematocrit 31.4 % (42.0-52.0); Hemoglobin 10.3 g/dL (11.7-16.6); Lymphocytes # 1.4 10^3/uL (0.8-4.8); Lymphocytes % 25.2 %; Mean Corpuscular HGB Conc 32.8 g/dL (30.0-36.0); Mean Corpuscular Hemoglobin 30.7 pg (28.0-34.0); Mean Corpuscular Volume 93.7 fl (80-94); Mean Platelet Volume 10.3 fL (7.4-10.4); Monocytes # 0.5 10^3/uL (0.2-0.9); Monocytes % 8.4 %; Neutrophils # 3.51 10^3/uL (1.8-7.7); Nucleated Red Blood Cells % 0 %; Platelet Count 177 10^3/cmm (130-400); Red Blood Count 3.35 10^6/uL (4.1-5.3); Red Cell Distribution Width 12.1 % (12.1-15.1); White Blood Count 5.5 10^3/uL (4.0-10.0)
--- NOTE | 2021-08-05 04:34 | PC.NURSE ---
Attempt to titrate patient off of nitro drip. Patient's blood pressure 196/86. Patient began having chest pain again. Unable to titrate nitro drip off at this time.
[2021-08-05 04:36] LABS: Alanine Aminotransferase 15 U/L (0-41); Albumin Level 3.8 g/dL (3.5-5.2); Alkaline Phosphatase 61 IU/L (40-130); Anion Gap 18.7 (5-19); Aspartate Amino Transferase 19 U/L (0-40); Blood Urea Nitrogen 53 mg/dL (8-23); Calcium 9.3 mg/dL (8.5-10.5); Carbon Dioxide 23 mmol/L (22-29); Chloride 103 mmol/L (98-107); Globulin 2.3 g/dL (1.3-4.6); Glomerular Filtration Rate 9.3 mL/min (90-130); Glucose 118 mg/dL (65-115); Osmolality Calculated 305 mOsm/kg (285-295); Potassium 4.7 mmol/L (3.5-5.1); Sodium 140 mmol/L (136-145); Total Bilirubin 0.2 mg/dL (0.15-1.2); Total Protein 6.1 g/dL (6.6-8.7)
[2021-08-05] MEDS: heparin 5,000 unit/mL INJ 1 mL 5000 UNIT SUBCUT ×3 (05:57→20:07)
[2021-08-05] MEDS: NIFEdipine ER (24 hr) 30 mg Tablet 60 MG PO (05:57)
[2021-08-05 07:02] LABS: Glucose Point of Care 120 mg/dL (70-110)
[2021-08-05] MEDS: metoprolol tartrate 50 mg Tablet PO ×2 (08:54→20:06)
[2021-08-05] MEDS: isosorbide mononitrate ER 30 mg Tablet 60 MG PO (08:55)
--- NOTE | 2021-08-05 09:02 | PC.CHAP ---
Pastoral Care Encounter/Spiritual Assessment Type of Contact [] Declined cnp visit [] Patient/Family/Request visit [] Outpatient visit [] Follow-up visit [] Physician referral [] Code/Alert [x] Routine visit [] Staff referral [] Actively dying [] Patient sleeping [] Family support [] [] Out of room [] Palliative care [] [] Receiving care in room [] Pre-surgical visit [] Trauma [] Long length of stay [] ICU visit [] Other: Relational/Emotional Strength [x] Patient feels connected with others/family/visitors/staff [] Distress [] Loneliness/isolation [] Abandonment Spirituality of Patient [x] Person of María [x] Attends Sabianist of their María [x] Believes in Prayer [x] Reads Bible or Judaism materials [] There are Spiritual issues to be addressed Student Outreach Coordinator Interventions [x] Prayer [x] Active listening [x] Non-anxious presence [x] Spiritual/emotional support [] Crisis/trauma care [] Spiritual counseling [] Bereavement support [] Provided bereavement packet [] Provided Bible/devotional materials [] Provided toy/stuffed animal, coloring book to patient or family member [] Provided Communion [] Anointing/[place] [] Salvation [x] Completed spiritual assessment [] Other: Impact on Illness or Injury [] Angry [] Fearful [] Anxious [] Often cries [] Exhaustion [] Unable to work [] Unable to attend jehovah's witness [] Unable to walk/stand [] Unable to read [] Unable to drive [] Unable to eat/drink [] Unable to sleep [] Unable to be with family [] Patient intubated [] Other: Summary Pt stated he is feeling better. Besides chest pain, he is in need of a kidney. Had been on a kidney transplant list in but was taken off recently and will not have to try to get onto another. However, current treatment is going well. Pt is and is visiting later today. Pt. is a strong Believer. Although raised in and attended various churches he did not come to maría until later in life and now attends the [employer]. He gets excited in talking about the Bible and his maría. :) Time spent with patient 15m
[2021-08-05] MEDS: doxazosin 4 mg Tablet PO ×2 (09:11→17:26)
--- NOTE | 2021-08-05 11:53 | PC.NURSE ---
Nephrology consult Per Dr. Lafleur during bedside rounding, pt can do his own PD in room w/ 1 exchange of 2.5%. Pt brought his own supplies and solution.
[2021-08-05 12:26] LABS: Glucose Point of Care 224 mg/dL (70-110)
--- NOTE | 2021-08-05 13:16 | USCV_ITS ---
Sherwin Yates Age: 70 Gender: M : 1950 Exam Date: 08/05/2021 14:04 Ordering Phys: Nella Montoya MD ([email or web address]) Technologist: [place] [facility] [place]: Chest pain, CHF, h/o CAD BP: 124 / 70 HR: 63 Rhythm: Sinus Technical Quality: Adequate MEASUREMENTS (Male / Female) Normal Values 2D ECHO LV Diastolic Diameter PLAX 4.0 cm 4.2 - 5.9 / 3.9 - 5.3 cm LV Systolic Diameter PLAX 3.0 cm IVS Diastolic Thickness 1.1 cm 0.6 - 1.0 / 0.6 - 0.9 cm IVS Systolic Thickness 1.1 cm LVPW Diastolic Thickness 1.0 cm 0.6 - 1.0 / 0.6 - 0.9 cm LVPW Systolic Thickness 1.4 cm LVOT Diameter 2.0 cm LV Ejection Fraction 2D Teich 49.0 % LV Ejection Fraction MOD 2C 82.8 % LV Ejection Fraction 2C AL 83.1 % LA Diameter 4.8 cm LA Width 4.8 cm LA Height 4.4 cm RA Width 4.6 cm RA Height 4.7 cm M-MODE Aortic Annulus Diameter 3.3 cm LA Ao Ratio MM 1.6 MV E Point Septal Separation 1.3 cm DOPPLER AV Peak Velocity 203.7 cm/s LVOT Peak Velocity 104.0 cm/s AV Area Cont Eq vti 1.6 cm squared AV Area Cont Eq pk 1.7 cm squared MV Area PHT 5.0 cm squared Mitral E to A Ratio 1.0 MV E' Velocity 42.0 cm/s Mitral E to MV E' Ratio 10.6 Mitral E to LV E' Lateral Ratio 7.4 Mitral E to LV E' Septal Ratio 19.1 TR Peak Velocity 194.0 cm/s TR Peak Gradient 15.1 mmHg TV Peak E Velocity 92.0 cm/s Right Atrial Pressure 3.0 mmHg Pulmonary Artery Systolic Pressu 18.1 mmHg FINDINGS Left Ventricle Normal left ventricular size, systolic function and wall thickness, with no regional wall motion abnormalities. Left ventricular ejection fraction is estimated at 55 %. There is possible hypokinesis of inferoseptal and basal inferior gerardo. Grade II diastolic dysfunction, moderately elevated filling pressures. Abnormal septal motion. Right Ventricle Right ventricle not well visualized. Probably normal right ventricle size and systolic function. RVSP could not be calculated due to incomplete tricuspid regurgitation velocity profile. Right Atrium Normal right atrial size. Left Atrium Mildly increased left atrial size. Mitral Valve Moderately thickened mitral valve. No mitral valve stenosis. Trace to mild mitral valve regurgitation. Aortic Valve Moderately thickened and calcified probably trileaflet aortic valve. Aortic valve sclerosis without stenosis. Trace aortic valve regurgitation. Tricuspid Valve Structurally normal tricuspid valve. Trace to mild tricuspid valve regurgitation. Pulmonic Valve Pulmonic valve not well visualized. No pulmonary valve stenosis. Mild pulmonary valve regurgitation. Pericardium No pericardial effusion. Aorta Normal-sized aortic root. CONCLUSIONS 1. Normal left ventricular size, systolic function and wall thickness, with no regional wall motion abnormalities. Left ventricular ejection fraction is estimated at 55 %. There is possible hypokinesis of inferoseptal and basal inferior gerardo. Grade II diastolic dysfunction, moderately elevated filling pressures. 2. Probably normal right ventricle size and systolic function. 3. Trace to mild mitral and tricuspid valve regurgitation. 4. When compared to previous echocardiogram dated 10/20/2019, there may not have been any significant change. Nelal Montoya MD (Electronically Signed) Final Date: 06 August 2021 11:37 S
--- NOTE | 2021-08-05 13:17 | PM.PN ---
Subjective Subjective: Interval history: No CP overnight Medications: Reviewed: Yes Vitals/I&O/Wt Last Vital Signs Temp 98.2 F 08/05/21 04:00 Pulse 63 08/05/21 12:01 Resp 16 08/05/21 12:01 BP 143/79 08/05/21 12:01 Pulse Ox 98 08/05/21 12:01 08/04/21 08/05/21 08/05/21 22:59 06:59 14:59 Intake Total 97.10 / 97.10 499.45 / 499.45 Balance 97.10 / 97.10 499.45 / 499.45 Weight last 48 hrs Weight 189 lb Weight 178 lb Physical Exam Narrative: EXAM NARRATIVE: GENERAL: Averagely built and averagely nourished in no acute distress HEENT: Pupils equal round reactive to light. No pallor or icterus. NECK: No JVD, carotid endarterectomy scar seen CARDIOVASCULAR SYSTEM: S1-S2 regular. No murmur rubs or gallops. RESPIRATORY SYSTEM: midline sternotomy scar+, Chest clear to auscultation. No wheezes rhonchi or rubs heard. No use of accessory muscles. ABDOMEN: Soft, nontender and nondistended. Normal bowel sounds present. EXTREMITIES: No cyanosis. [No edema]. No signs of chronic venous insufficiency. 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 No focal neurological deficits. SKIN: Normal turgor and temperature. PSYCH: Normal insight and judgment. Data : 08/05/21 03:38 08/05/21 03:38 A&P Assessment and plan (1) Chest pain: Imdur per patient was stopped after recent C in 05/2021. -restart imdur and uptitrate based on BP. -December d/c NTG gtt. -No EKG changes and normal troponin. -continue metoprolol, ASA, statin -echo pending Status: Resolved Qualifiers: Chest pain type: unspecified Qualified Code(s): R07.9 - Chest pain, unspecified (2) CAD (coronary artery disease): s/p CABG with patent BYRD to LAD and patent SVG to rPDA. -occluded LM and Px RCA. Status: Acute Qualifiers: Associated angina: angina presence unspecified Coronary Disease-Associated Artery/Lesion type: bypass graft [place] vs. transplanted heart: tribe heart Qualified Code(s): I25.810 - Atherosclerosis of coronary artery bypass graft(s) without angina pectoris (3) Congestive heart failure: received lasix 40 mg IV x1 in ER Status: Acute Qualifiers: Heart failure chronicity: acute Heart failure type: combined systolic and diastolic Qualified Code(s): I50.41 - Acute combined systolic (congestive) and diastolic (congestive) heart failure (4) Hypertension: BP elevated -restart home meds Status: Acute Qualifiers: Hypertension type: essential hypertension Qualified Code(s): I10 - Essential (primary) hypertension (5) Dyslipidemia: Status: Acute (6) ESRD (end stage renal disease): will need dialysis Status: Acute Additional A&P Information Hyperkalemia: resolved Bifascicular block Insulin-dependent diabetes mellitus Gastroesophageal reflux disease Thank you for allowing me to participate in patient's care. Please feel free to call with questions or concerns. Attestations Medical Necessity Statement*: needs hospital stay for med titration Time Spent in Patient Care: 16 - 35 minutes Coding Level of Care Code Acute Panel Builder for Ines Leod Diagnoses Chest pain R07.9 Chest pain type: unspecified CAD (coronary artery disease) I25.810 Associated angina: angina presence unspecified Coronary Disease-Associated Artery/Lesion type: bypass graft [place] vs. transplanted heart: tribe heart Congestive heart failure I50.41 Heart failure chronicity: acute Heart failure type: combined systolic and diastolic Hypertension I10 Hypertension type: essential hypertension Dyslipidemia E78.5 ESRD (end stage renal disease) N18.6
--- NOTE | 2021-08-05 14:46 | PM.CONSULT ---
Providers/Reason For Consult Consulting Physician/Specialty*: Nephrology Reason for Consult*: Eval for PD management Attending Physician: Harry Zamorano MD Primary Care Provider: Elias Conteh MD History of Present Illness History of Present Illness Thank you for consultation. Mr Ytaes presents for crushing chest pain. This was associated with crushing/twisting chest pain with radiation to his jaws. He presented to the emergency room where he was placed on nitroglycerin infusion, with subsequent resolution of his chest pain. There were no acute EKG changes his troponin increased to a peak of 9.88. Is now being followed by cardiology, Dr. Montoya. From my own perspective, he is on peritoneal dialysis. He only does a single exchange of peritoneal dialysis per day, 2.5 L over 7-8 hours. No extremity edema, shortness of breath or other hypervolemic changes. No uremic symptoms. He does still have some urine output. Hemodynamics stable, last blood pressure 143/79. Review of Systems Narrative: ROS - 12 point review of systems completed per HPI and subjective assessment, this includes Constitutional: No weakness, fatigue Respiratory: No SOB on exertion, comfortable at rest CardioVasc: No chest pain, palpitations Gastrointestinal: No nausea, no vomiting Neurological: No seizures, no AMS Derm: No new rashes, lesions or wounds Immunological: No seasonal and no food allergies Meds/Allergies Home Medications and Allergies Home Medications Medication Instructions Recorded Confirmed Last Taken Type furosemide 40 mg tablet 40 mg PO QAM 09/05/19 08/04/21 08/04/21 History insulin glargine 100 unit/mL 15 - 20 unit SUBCUT BEDTIME 09/05/19 08/04/21 06/25/20 History subcutaneous solution metoprolol tartrate 50 mg tablet 50 mg PO BID 09/05/19 08/04/21 08/04/21 09:00 History nitroglycerin 0.4 mg sublingual 0.4 mg SUBLINGUAL Q5M PRN 09/05/19 08/04/21 10/19/19 History tablet sevelamer HCl 800 mg tablet 800 - 2,400 mg PO .AFTER EACH MEAL 09/05/19 08/04/21 10/19/19 History tab simvastatin 40 mg tablet 40 mg PO BEDTIME 09/05/19 08/04/21 08/03/21 History RenaPlex 1 tab PO DAILY 10/19/19 08/04/21 06/25/20 History pregabalin [Lyrica] 25 mg PO BID PRN 10/19/19 08/04/21 10/12/19 History ascorbic acid (vitamin C) [Vitamin See Rx Instructions .ROUTE .COMPLEX 06/26/20 08/04/21 06/25/20 History C] aspirin [Aspir-81] 81 mg PO QAM 06/26/20 08/04/21 08/04/21 09:00 History chlorhexidine gluconate 15 ml PO BID PRN 06/26/20 08/04/21 Unknown History cholecalciferol (vitamin D3) 125 mcg PO BEDTIME 06/26/20 08/04/21 06/26/20 History [Vitamin D3] clonidine HCl 0.3 mg PO QPM 06/26/20 08/04/21 08/03/21 History pantoprazole 40 mg PO QAM 06/26/20 08/04/21 08/04/21 History terazosin 5 mg PO BEDTIME 06/26/20 08/04/21 06/25/20 History hydralazine 50 mg tablet 50 mg PO TID tab 07/22/21 08/04/21 08/04/21 09:00 History doxazosin 4 mg PO BID 08/04/21 08/04/21 08/04/21 09:00 History multivitamin 1 tab PO DAILY 08/04/21 08/04/21 Unknown History nifedipine 60 mg PO QAM 08/04/21 08/04/21 08/04/21 09:00 History spironolactone 25 mg PO BID 08/04/21 08/04/21 08/04/21 09:00 History Allergies Allergy/AdvReac Type Severity Reaction Status Date / Time duloxetine [From Cymbalta] Allergy Unknown Unknown Verified 08/04/21 17:02 acetaminophen Allergy Unknown Verified 08/04/21 17:02 trazodone Allergy ADR-Cramping Verified 08/04/21 17:02 of the Muscles Current Medications Current Medications Generic Name Dose Route Start Last Admin Trade Name Freq PRN Reason Stop Dose Admin Aspirin 81 mg 08/05/21 06:00 08/05/21 03:51 Aspirin 81 Mg Ec Tablet PO 81 mg QAM WOO Administration Atorvastatin Calcium 40 mg 08/04/21 21:00 08/04/21 21:27 Atorvastatin 40 Mg Tablet PO 40 mg BEDTIME WOO Administration Doxazosin Mesylate 4 mg 08/05/21 09:00 08/05/21 09:11 Doxazosin 4 Mg Tablet PO 4 mg BID WOO Administration Heparin Sodium (Porcine) 5,000 unit 08/05/21 05:30 08/05/21 05:57 Heparin 5,000 Unit/Ml Inj 1 Ml SUBCUT 5,000 unit Q8H WOO Administration Hydralazine HCl 50 mg 08/05/21 01:15 08/05/21 08:55 Hydralazine 50 Mg Tablet PO 50 mg TID WOO Administration Nitroglycerin/Dextrose 50 mg in 250 mls @ 0 mls/hr 08/04/21 14:15 08/05/21 08:57 Nitroglycerin Drip IV 20 mcg/min .Q0M WOO 6 mls/hr Titration Protocol Per Protocol Insulin Human Lispro 0 unit 08/05/21 01:15 08/05/21 13:02 Insulin Lispro 100 Unit/1 Ml SUBCUT 1 unit TIDWM WOO Administration Protocol Isosorbide Mononitrate 60 mg 08/05/21 09:00 08/05/21 08:55 Isosorbide Mononitrate Er 30 Mg Tablet PO 60 mg DAILY WOO Administration Metoprolol Tartrate 50 mg 08/04/21 21:00 08/05/21 08:54 Metoprolol Tartrate 50 Mg Tablet PO 50 mg 0900,2100 WOO Administration Nifedipine 60 mg 08/05/21 06:00 08/05/21 05:57 Nifedipine Er (24 Hr) 30 Mg Tablet PO 60 mg QAM WOO Administration Non-Formulary Medication 1 tab 08/05/21 09:00 08/05/21 08:57 Vit B Qwmgbyh-M-Mcraz Ac-Zinc [Renaplex] PO Not Given DAILY [facility] Pantoprazole Sodium 40 mg 08/05/21 06:00 08/05/21 03:[address] 40 Mg Tablet PO 40 mg QAM [facility] Administration Pregabalin 25 mg 08/05/21 00:54 08/05/21 01:24 Pregabalin 25 Mg Capsule PO 25 mg BID PRN Administration pt states needs to get refill on this medication Spironolactone 25 mg 08/05/21 01:15 08/05/21 01:19 Spironolactone 25 Mg Tablet PO 25 mg BID WOO Administration PFSH Acute PFSH: Medical History Anemia CAD (coronary artery disease) Carotid stenosis COPD (chronic obstructive pulmonary disease) CVA (cerebral vascular accident) Diabetes Dyslipidemia Continue statin ESRD (end stage renal disease) Peritoneal dialysis GERD (gastroesophageal reflux disease) Hepatitis C Hypersomnia Hypertension Improved control Neuropathy Peritoneal dialysis status started april of 2019 Sleep apnea Surgical History History of carotid endarterectomy Bilateral History of colonoscopy with polypectomy Patient had a normal colonoscopy he will not require further screening colonoscopies due to his age of 69. History of coronary artery bypass graft Family History Denies family history of Anesthesia complication Bleeding disorder Social History Smoking and tobacco status: former smoker Second hand smoke exposure: No Alcohol intake: never Adopted: No Caregiver/support person: Yes Lives independently: Yes Household members: spouse Housing: House Marital status: Highest education level completed: High School Graduate service: Yes (3 years ) branch: [id number] Current occupational status: retired History of recent travel: No Sexually active: No Current gender identity: Male María/Moravian: Roman Catholic Special maría needs: No Agree to transfusion: No Financial difficulty paying for basics: Decline to Answer Vitals/I&O/Wt Last Vital Signs Temp 98.2 F 08/05/21 04:00 Pulse 63 08/05/21 12:01 Resp 16 08/05/21 12:01 BP 143/79 08/05/21 12:01 Pulse Ox 98 08/05/21 12:01 08/04/21 08/05/21 08/05/21 22:59 06:59 14:59 Intake Total 97.10 / 97.10 499.45 / 499.45 Balance 97.10 / 97.10 499.45 / 499.45 Weight last 48 hrs Weight 85.729 kg Weight 80.739 kg Physical Exam Narrative: EXAM NARRATIVE: Constitutional: Awake, comfortable HEENT: Wet mucosa, no jvp, non icteric Lungs: Bilaterally clear without discernible wheeze, rales in all lung zones CVS: S1 S2, no murmurs Abdo: Soft, BS ok Ext 4: Minimal edema, peripheral perfusion with no cyanosis Neurological: Grossly non-focal A&P Additional A&P Information 1. ESRD Continue CAPD with 1 exchange per day. Will use 2.5 L of 2.5% solution. Dose medication for GFR less than 15 on peritoneal dialysis 2. Chest pain Anginal chest pain, being managed by cardiology, normal EKG and low troponin levels. Defer management to cardiology. 3. Hemodynamics Hemodynamics at goal, blood pressure looks good, stable. 4. Chronic ESRD issues To manage as an outpatient as part of standard monthly management. 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
[2021-08-05 18:06] LABS: Glucose Point of Care 274 mg/dL (70-110)
--- NOTE | 2021-08-05 18:49 | P.PN_ITS ---
Subjective Subjective: Interval history: Patient was seen and examined this morning, denies any chest pain, palpitations shortness of breath, nitro drip has been turned off. His other vitals and labs have been reviewed. Medications: Reviewed: Yes Vitals/I&O/Wt Last Vital Signs Temp 97.8 F 08/05/21 17:29 Pulse 65 08/05/21 15:33 Resp 16 08/05/21 12:01 BP 157/78 08/05/21 15:33 Pulse Ox 98 08/05/21 15:33 08/05/21 08/05/21 08/05/21 06:59 14:59 22:59 Intake Total 97.10 / 97.10 503.00 / 503.00 236 / 739.00 Balance 97.10 / 97.10 503.00 / 503.00 236 / 739.00 Weight last 48 hrs Weight 85.729 kg Weight 80.739 kg Physical Exam Narrative: EXAM NARRATIVE: Const: COMMON NORMALS: no acute distress GENERAL APPEARANCE: cooperative and comfortable ORIENTATION/CONSCIOUSNESS: Yes awake, Yes oriented to person, Yes oriented to place and Yes oriented to time HENMT: COMMON NORMALS: normocephalic, atraumatic and hearing grossly normal bilaterally HEAD & SCALP: normocephalic and atraumatic Neck/C-Spine: COMMON NORMALS: no JVD Lymph: LYMPHATIC: no lymphadenopathy noted and no lymphedema noted Resp: COMMON NORMALS: normal respiratory effort, No retractions, No use of accessory muscles and clear to auscultation bilaterally AUSCULTATION: clear to auscultation bilaterally Cardio: COMMON NORMALS: no JVD, regular rate, regular rhythm and No murmurs present (Cardio) RATE: regular rate RHYTHM: regular rhythm GI: COMMON NORMALS: Soft to palpation and No hepatosplenomegaly present AUSCULTATION: Yes normoactive bowel sounds PALPATION: Yes Soft to palpation, No Tenderness to palpation present (GI), No Guarding due to palpation present (GI) and Yes No hepatosplenomegaly present Extremity: COMMON NORMALS: normal to inspection, capillary refill normal, no clubbing, cyanosis or edema, no calf tenderness and no pedal edema Neuro: SENSORIUM/ORIENTATION: Yes oriented to person, Yes oriented to place and Yes oriented to time Skin: COMMON NORMALS: no rashes or lesions noted GENERAL SKIN EXAM: no ra shes or lesions noted Data : 08/05/21 03:38 08/05/21 03:38 A&P Assessment and plan (1) Chest pain: Status: Acute (2) History of colonoscopy with polypectomy: Status: Resolved (3) Congestive heart failure: Status: Acute Qualifiers: Heart failure chronicity: acute Heart failure type: combined systolic a nd diastolic Qualified Code(s): I50.41 - Acute combined systolic (congestive) and diastolic (congestive) heart failure (4) CAD (coronary artery disease): Status: Acute Qualifiers: Coronary Disease-Associated Artery/Lesion type: bypass graft [place] vs. transplanted heart: augustine heart Associated angina: angina presence unspecified Qualified Code(s): I25.810 - Atherosclerosis of coronary artery bypass graft(s) without angina pectoris (5) Diabetes: Status: Acute (6) Dyslipidemia: Status: Acute (7) ESRD (end stage renal disease): Status: Acute (8) COPD (chronic obstructive pulmonary disease): Status: Acute Additional A&P Information Chest pain hx of CAD s/p CABG Initially on nitro drip. Has been stopped this morning Imdur dose has been increased to 60 mg PO daily Continue aspirin / Statin / Metoprolol Repeat 2D echo: Appreciate cardiology input: Currently want to continue with medical management Monitor on telemetry Hypertension Imdur 30 mg po daily Hydralazine 50 mg PO TID Metoprolol 50 mg PO BID Aldactone 50 mg PO BID - HOLD due to hyperkalemia Nifedipine 60 mg PO Qam Catapres 0.3 mg PO x1 - resume PRN ESRD on PD Nephrology consult to resume PD Additional Medical Problems Diabetes Mellitus Hyperlipidemia Hx of Hepatitis C COPD Hx of CVA BPH DVT ppx Heparin Attestations Medical Necessity Statement*: Patient needs to be in hospital for management of chest pain, need for optimization of medicine. Coding Level of Care Code Acute Laboratory Immunologist for [place] [facility]wd Diagnoses Chest pain R07.9 History of colonoscopy with polypectomy Z98.890; Z86.010 Congestive heart failure I50.41 Heart failure chronicity: acute Heart failure type: combined systolic and diastolic CAD (coronary artery disease) I25.810 Coronary Disease-Associated Artery/Lesion type: bypass graft [place] vs. transplanted heart: augustine heart Associated angina: angina presence unspecified Diabetes E11.9 Dyslipidemia E78.5 ESRD (end stage renal disease) N18.6 COPD (chronic obstructive pulmonary disease) J44.9
[2021-08-05] MEDS: insulin glargine 100 units/1 mL 10 UNIT SUBCUT (20:06)
[2021-08-05] MEDS: atorvastatin 40 mg Tablet PO (20:07)
--- NOTE | 2021-08-05 20:39 | PC.NURSE ---
Shift Note Frequent safety and comfort rounds continue. Orders and/or nursing care completed as indicated. Patient monitored for response to intervention and treatment(s). Pt denies any chest pain all shift,. Education provided includes new dose of his med, nephrology consult for his PD. Patient and/or title insurance sales representative verbalizes understanding. Will continue to monitor.
[2021-08-05 20:44] LABS: Glucose Point of Care 164 mg/dL (70-110)
[2021-08-06 01:00] VITALS: BP 176/69; PULSE 66; RESP 18; TEMP 36.2
[2021-08-06] MEDS: aspirin 81 mg EC Tablet PO (04:58)
[2021-08-06] MEDS: pantoprazole DR 40 mg Tablet PO (04:58)
[2021-08-06] MEDS: NIFEdipine ER (24 hr) 30 mg Tablet 60 MG PO (04:58)
[2021-08-06] MEDS: heparin 5,000 unit/mL INJ 1 mL 5000 UNIT SUBCUT (04:58)
[2021-08-06 05:00] VITALS: BP 169/65; PULSE 68; RESP 18; TEMP 36.2
[2021-08-06 06:00] VITALS: PULSE 65
--- NOTE | 2021-08-06 06:53 | PM.PN ---
Subjective Subjective: Interval history: feels better. no n/v/f/c/h/d/leg pins Medications: Reviewed: Yes Medication Review Details: Current Medications Aspirin (Aspirin 81 Mg Ec Tablet) 81 mg PO QAM [facility] Last Admin: 08/06/21 04:58 Dose: 81 mg Documented by: Atorvastatin Calcium (Atorvastatin 40 Mg Tablet) 40 mg PO BEDTIME [facility] Last Admin: 08/05/21 20:07 Dose: 40 mg Documented by: Dextrose (Dextrose 50% Syringe 50 Ml) 25 ml IVP ONCE PRN; Protocol PRN Reason: hypoglycemia protocol Dextrose (Dextrose 50% Syringe 50 Ml) 50 ml IVP PRN PRN; Protocol PRN Reason: hypoglycemia protocol Doxazosin Mesylate (Doxazosin 4 Mg Tablet) 4 mg PO BID [facility] Last Admin: 08/05/21 17:26 Dose: 4 mg Documented by: Glucagon (Glucagon 1 Mg/Ml Inj 1 Ml) 1 mg IM ONCE PRN; Protocol PRN Reason: Adult Acute Hypoglycemia Prot. Heparin Sodium (Porcine) (Heparin 5,000 Unit/Ml Inj 1 Ml) 5,000 unit SUBCUT Q8H [facility] Last Admin: 08/06/21 04:58 Dose: 5,000 unit Documented by: Hydralazine HCl (Hydralazine 50 Mg Tablet) 50 mg PO TID [facility] Last Admin: 08/05/21 20:05 Dose: 50 mg Documented by: Nitroglycerin/Dextrose (Nitroglycerin Drip) 50 mg in 250 mls @ 0 mls/hr IV .Q0M [facility]; Protocol Last Titration: 08/05/21 09:35 Dose: 0 mcg/min, 0 mls/hr Documented by: Dextrose (D5w) 500 mls @ 100 mls/hr IV ONCE PRN; Protocol PRN Reason: Adult Acute Hypoglycemia Prot Insulin Glargine (Insulin Glargine 100 Units/1 Ml) 10 unit SUBCUT BEDTIME WOO Last Admin: 08/05/21 20:06 Dose: 10 unit Documented by: Insulin Human Lispro (Insulin Lispro 100 Unit/1 Ml) 0 unit SUBCUT TIDWM [facility]; Protocol Last Admin: 08/05/21 18:09 Dose: 8 unit Documented by: Isosorbide Mononitrate (Isosorbide Mononitrate Er 30 Mg Tablet) 60 mg PO DAILY [facility] Last Admin: 08/05/21 08:55 Dose: 60 mg Documented by: Metoprolol Tartrate (Metoprolol Tartrate 50 Mg Tablet) 50 mg PO 0900,2100 [facility] Last Admin: 08/05/21 20:06 Dose: 50 mg Documented by: Nifedipine (Nifedipine Er (24 Hr) 30 Mg Tablet) 60 mg PO QAM [facility] Last Admin: 08/06/21 04:58 Dose: 60 mg Documented by: Non-Formulary Medication (Vit B Yexoymk-D-Evmkj Ac-Zinc [Renaplex]) 1 tab PO DAILY [facility] Last Admin: 08/05/21 08:57 Dose: Not Given Documented by: Pantoprazole Sodium (Pantoprazole Dr 40 Mg Tablet) 40 mg PO QAM [facility] Last Admin: 08/06/21 04:58 Dose: 40 mg Documented by: Pregabalin (Pregabalin 25 Mg Capsule) 25 mg PO BID PRN PRN Reason: pt states needs to get refill on this medication Last Admin: 08/05/21 01:24 Dose: 25 mg Documented by: Spironolactone (Spironolactone 25 Mg Tablet) 25 mg PO BID [facility] Last Admin: 08/05/21 01:19 Dose: 25 mg Documented by: Vitamin D (Cholecalciferol (Vitamin D3) 5,000 Unit Tablet) 5,000 unit PO BEDTIME [facility] Vitals/I&O/Wt Last Vital Signs Temp 97.1 F L 08/06/21 05:00 Pulse 65 08/06/21 06:00 Resp 18 08/06/21 05:00 BP 169/65 08/06/21 05:00 Pulse Ox 98 08/05/21 21:00 08/05/21 08/05/21 08/06/21 14:59 22:59 06:59 Intake Total 503.00 / 503.00 236 / 739.00 Balance 503.00 / 503.00 236 / 739.00 Weight last 48 hrs Weight 85.729 kg Weight 80.739 kg Physical Exam Narrative: EXAM NARRATIVE: NARD in bed vs noted- bp elevated heent- nc/at, eomi neck no jvp lungs clear heart reg, no rub abd soft, nt, nd, +BS, +PE catheter ext no edema neuro- a,a, o x3 Data : 08/05/21 03:38 08/05/21 03:38 A&P Additional A&P Information 1. ESRD Continue CAPD with 1 exchange per day. Will use 2.5 L of 2.5% solution. Dose medication for GFR less than 15 on peritoneal dialysis -i discussed w/ pt, that i think he may benefit from more dialysis. pt does not want it. 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 Chest pain Anginal chest pain, being managed by cardiology, normal EKG and low troponin levels. Defer management to cardiology. 3. Hemodynamics bp elevated- consider add ARB for cardoprotection- per crdiology 4. Chronic ESRD issues To manage as an outpatient as part of standard monthly management. -keep phos low 5. mild anemia- JAMES as outpt Thank you for consultation, as always it is a pleasure to follow these patients with you Patient seen and examined via telemedicine, with the assistance of the bedside RN > 25 min spent in evaluation and mgmt of patient Attestations Medical Necessity Statement*: cp per cardiology Time Spent in Patient Care: 16 - 35 minutes (>than 50% of time spent in counselling and/or direct pt care on unit). Coding Level of Care Code Acute Wad Lubricator for Ines Matias
[2021-08-06 06:58] LABS: Glucose Point of Care 175 mg/dL (70-110)
[2021-08-06 09:00] VITALS: PULSE 64; RESP 18; O2SAT 98
--- NOTE | 2021-08-06 09:41 | P.DS_ITS ---
Discharge Providers Date of Admission: 08/04/21 19:11 Date of Discharge: August 06, 2021 Attending Provider at Admission: Deo Mccarthy Attending Provider at Discharge: Harry Zamorano MD Primary Care Provider: Elias Conteh MD Diagnoses at Discharge Discharge Diagnosis (1) Chest pain: Status: Resolved Permanent problem details: Cardiology has evaluated. Continue to medically treat Qualifiers: Chest pain type: unspecified Qualified Code(s): R07.9 - Chest pain, unspecified (2) CAD (coronary artery disease): Status: Acute Qualifiers: Associated angina: angina presence unspecified Coronary Disease- Associated Artery/Lesion type: bypass graft [place] vs. transplanted heart: [place] Qualified Code(s): I25.810 - Atherosclerosis of coronary artery bypass graft(s) without angina pectoris (3) Congestive heart failure: Status: Acute Qualifiers: Heart failure chronicity: acute Heart failure type: combined systolic and diastolic Qualified Code(s): I50.41 - Acute combined systolic (congestive) and diastolic (congestive) heart failure (4) Hypertension: Status: Acute Permanent problem details: Improved control Qualifiers: Hypertension type: essential hypertension Qualified Code(s): I10 - Essential (primary) hypertension (5) Dyslipidemia: Status: Acute Permanent problem details: Continue statin (6) ESRD (end stage renal disease): Status: Acute Permanent problem details: Peritoneal dialysis Reason for Visit Reason for Visit: CHEST PAIN Hospital Course Hospital Course 70 year old with past medical history significant for hypertension, dyslipidemia, diabetes mellitus, hepatitis C, COVID-19 infection, end stage renal disease on peritoneal dialysis, and coronary artery disease s/p CABG ( p atent BYRD to LAD and patent SVG to rPDA. occluded LM and Px RCA.) who is presenting to ER with chest pain.Patient stated he was shopping with his when he started to feel chest tightness. He took two SL nitro after which this did now improve which prompted ER visit. Denied shortness of breath. Did note episode of nausea and vomiting. Denied any recent fever or chills. No abdominal pain or distention. Has been tolerating his PD at home. Upon arrival to ER he was seen by cardiology. Started on nitro drip after which his chest pain improved. He was noted to be hypertensive for which his home regimen was restarted. Additionally he was given Lasix 40 mg IV x 1. Lab work up on arrival showed a WBC of 7.4, hemoglobin of 11.9, hematocrit of 35.8 and a platelet count of 187. Sodium of 138, potassium of 5.3, chloride of 22, bicarb of 22, BUN of 43 and a creatinine of 5.3. Delta Troponin of negative 1.81. He was admitted for the management of chest pain, no EKG changes were noted, no new changes was noted on 2D echo:Normal left ventricular size, systolic function and wall thickness, with no regional wall motion abnormalities. Left ventricular ejection fraction is estimated at 55 %. There is possible hypokinesis of inferoseptal and basal inferior gerardo. Grade II diastolic dysfunction, moderately elevated filling pressures. Probably normal right ventricle size and systolic function. Trace to mild mitral and tricuspid valve regurgitation.His Imdur was stopped after recent LHC in 05/2021. He was restarted back on IMDUR , and was uptitrated to 90 MG PO DAILY, aspirin statin and metoprolol was continued, Patient was chest pain-free at the time of discharge.He was continued on peritoneal dialysis for end-stage renal disease. At the time of discharge hyperkalemia had resolved. Patient responded well to above medical management and is being discharged in stable condition he will continue to follow cardiology as an outpatient. Physical Exam Narrative: EXAM NARRATIVE: Const: COMMON NORMALS: no acute distress GENERAL APPEARANCE: cooperative and comfortable ORIENTATION/CONSCIOUSNESS: Yes awake, Yes oriented to person, Yes oriented to place and Yes oriented to time HENMT: COMMON NORMALS: normocephalic, atraumatic and hearing grossly normal bilaterally HEAD & SCALP: normocephalic and atraumatic Neck/C-Spine: COMMON NORMALS: no JVD Lymph: LYMPHATIC: no lymphadenopathy noted and no lymphedema noted Resp: COMMON NORMALS: normal respiratory effort, No retractions, No use of accessory muscles and clear to auscultation bilaterally AUSCULTATION: clear to auscultation bilaterally Cardio: COMMON NORMALS: no JVD, regular rate, regular rhythm and No murmurs present (Cardio) RATE: regular rate RHYTHM: regular rhythm GI: COMMON NORMALS: Soft to palpation and No hepatosplenomegaly present AUSCULTATION: Yes normoactive bowel sounds PALPATION: Yes Soft to palpation, No Tenderness to palpation present (GI), No Guarding due to palpation present (GI) and Yes No hepatosplenomegaly present Extremity: COMMON NORMALS: normal to inspection, capillary refill normal, no clubbing, cyanosis or edema, no calf tenderness and no pedal edema Neuro: SENSORIUM/ORIENTATION: Yes oriented to person, Yes oriented to place and Yes oriented to time Skin: COMMON NORMALS: no rashes or lesions noted GENERAL SKIN EXAM: no rashes or lesions noted Discharge Data Data Completed and Pending: Completed Studies During Hospitalization Category Date Time Status XR chest 1V brittney ble [id number] Urgent Exams 08/04/21 12:55 Completed Pending at discharge Category Date Time Status CV. echo complete * [id number] Routine Ultrasound 08/05/21 13:16 Taken Labs from last 24 hours 08/06/21 08/05/21 08/05/21 06:39 20:01 17:28 POC Glucose 175 H 164 H 274 H 08/05/21 11:57 POC Glucose 224 H Vitals: Last Vital Signs Temp 97.1 F L 08/06/21 05:00 Pulse 65 08/06/21 06:00 Resp 18 08/06/21 05:00 BP 169/65 08/06/21 05:00 Pulse Ox 98 08/05/21 21:00 Discharge Plan Discharge Patient Disposition: Home Condition: Stable Prescriptions: New isosorbide mononitrate 30 mg Tablet Extended Release 24 Hr 90 mg PO DAILY 30 Days Qty: 30 RF: 3 Continued hydralazine 50 mg tablet 50 mg PO TID RF: 0 furosemide 40 mg tablet 40 mg PO QAM RF: 0 sevelamer HCl 800 mg tablet 800 - 2,400 mg PO .AFTER EACH MEAL RF: 0 Lantus U-100 Insulin 100 unit/mL solution 15 - 20 unit SUBCUT BEDTIME RF: 0 simvastatin 40 mg tablet 40 mg PO BEDTIME RF: 0 nitroglycerin [Nitrostat] 0.4 mg tablet, sublingual 0.4 mg SUBLINGUAL Q5M PRN (Reason: Chest Pain) RF: 0 metoprolol tartrate 50 mg tablet 50 mg PO BID RF: 0 pregabalin [Lyrica] 25 mg Capsule 25 mg PO BID PRN (Reason: pt states needs to get refill on this medication) RF: 0 RenaPlex 800 mcg- 12.5 mg Tablet 1 tab PO DAILY RF: 0 aspirin 81 mg Tablet,Delayed Release (Dr/Ec) 81 mg PO QAM RF: 0 terazosin 5 mg capsule 5 mg PO BEDTIME RF: 0 Vitamin C Powder See Rx Instructions .ROUTE .COMPLEX RF: 0 pantoprazole 40 mg tablet,delayed release (DR/EC) 40 mg PO QAM RF: 0 chlorhexidine gluconate 0.12 % mouthwash 15 ml PO BID PRN (Reason: unknown) RF: 0 cholecalciferol (vitamin D3) [Vitamin D3] 125 mcg (5,000 unit) Tablet 125 mcg PO BEDTIME RF: 0 clonidine HCl 0.1 mg tablet 0.3 mg PO QPM RF: 0 multivitamin Tablet 1 tab PO DAILY RF: 0 doxazosin 8 mg tablet 4 mg PO BID RF: 0 nifedipine 60 mg tablet extended release 60 mg PO QAM RF: 0 spironolactone 25 mg tablet 25 mg PO BID RF: 0 Discharge Orders: Discharge Order (Routine); Ordered 08/06/21 Ordered By: Harry Zamorano Referrals: Peng Funk MD [Physician] - 1 month (You Have and appointment with Heart care services on September 01 at 10:45am with OSORIO Luu. If you are unable to keep the arranged appointment please contact Heart care services to arrange your follow up care.) Discharge Diet: Cardiac Discharge Activity: Resume usual activity Patient Instructions: Isosorbide Mononitrate (By mouth) (Imdur, Imdur ER, Ismo), Chronic Hypertension (DC), Opioid Safety Discharge Attestations Time Spent in Discharge Care*: less than 30 min Specific Discharge Activities: educating patient, educating and/or supporting family/caregiver, discussing with pcp/other providers, discussing with community case manager/social workers/dc planners, documenting/other paperwork and evaluating patient/reviewing data Status at Discharge: Cognitive status at discharge: cognitively intact , Behavioral status at discharge: cooperative , Functional status at discharge: independent ambulation Overall status at discharge: patient is back to baseline Quality Metrics Clinical Quality Measures During this hospital stay, did patient experience: None Coding Level of Care Code Acute Chg FW DC note Diagnoses Chest pain R07.9 Chest pain type: unspecified CAD (coronary artery disease) I25.810 Associated angina: angina presence unspecified Coronary Disease-Associated Artery/Lesion type: bypass graft [place] vs. transplanted heart: [place] Congestive heart failure I50.41 Heart failure chronicity: acute Heart failure type: combined systolic and diastolic Hypertension I10 Hypertension type: essential hypertension Dyslipidemia E78.5 ESRD (end stage renal disease) N18.6
[2021-08-06] MEDS: doxazosin 4 mg Tablet PO (09:42)
[2021-08-06] MEDS: hyDRALAzine 50 mg Tablet PO (09:42)
[2021-08-06] MEDS: isosorbide mononitrate ER 30 mg Tablet 90 MG PO (09:42)
[2021-08-06] MEDS: metoprolol tartrate 50 mg Tablet PO (09:42)
[2021-08-06] MEDS: insulin lispro 100 unit/1 mL SUBCUT (09:43)
[2021-08-06 10:37] VITALS: PULSE 64; RESP 18; O2SAT 98
--- NOTE | 2021-08-06 11:10 | PC.NURSE ---
Pt discharged home. Pts IV removed no redness or swelling noted. Pts discharge instructions given along with prescriptions and follow up appointments. Pt had no c/o pain or discomfort at the time of discharge. Pt transferred out via wheelchair to private vehicle accompanied by pts and staff.
== END 2021-08-06 11:09 | disposition home or self-care (01) | DRG 302 ==
LOC: ER 19:05 → CSU 22:11
PROVIDERS: Physician Assistant; Admitting Provider Hospitalist; Emergency Provider Family Medicine; PCP Family Medicine; Visit Provider Internal Medicine
DX: I25.119 Atherosclerotic heart disease of native coronary artery with unspecified angina pectoris (principal); I50.41 Acute combined systolic (congestive) and diastolic (congestive) heart failure; N18.6 End stage renal disease; I13.2 Hypertensive heart and chronic kidney disease with heart failure and with stage 5 chronic kidney disease, or end stage renal disease; I25.810 Atherosclerosis of coronary artery bypass graft(s) without angina pectoris; I45.2 Bifascicular block; Z86.16 Personal history of COVID-19; E11.22 Type 2 diabetes mellitus with diabetic chronic kidney disease; Z99.2 Dependence on renal dialysis; D63.1 Anemia in chronic kidney disease; J44.9 Chronic obstructive pulmonary disease, unspecified; Z86.73 Personal history of transient ischemic attack (TIA), and cerebral infarction without residual deficits; E78.5 Hyperlipidemia, unspecified; K21.9 Gastro-esophageal reflux disease without esophagitis; Z86.19 Personal history of other infectious and parasitic diseases; E11.42 Type 2 diabetes mellitus with diabetic polyneuropathy; G47.33 Obstructive sleep apnea (adult) (pediatric); Z87.891 Personal history of nicotine dependence; Z99.89 Dependence on other enabling machines and devices; E87.5 Hyperkalemia; Z79.4 Long term (current) use of insulin; N40.0 Benign prostatic hyperplasia without lower urinary tract symptoms
CPT/HCPCS: 36415; 36416; 71045; 80053; 82962; 83880; 84484; 85025; 93005; 93306; 96365; 96372; 99285; J1644; J1815 ×2; J3490; Q3014

== ENCOUNTER → 2021-11-06 09:51 | Outpatient (BNVA) | payer MEDICARE, OTHER, SELFPAY | PROVIDERS: PCP Family Medicine; Visit Provider Internal Medicine Cardiovascular Disease | DX: I25.110 Atherosclerotic heart disease of native coronary artery with unstable angina pectoris (principal); I65.29 Occlusion and stenosis of unspecified carotid artery; I50.9 Heart failure, unspecified | CPT/HCPCS: 99214 ==

== ENCOUNTER 2021-12-18 11:57 | Outpatient (CLI) | payer MEDICARE, OTHER, SELFPAY ==
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
== END 2021-12-18 11:58 | disposition home or self-care (01) ==
LOC: RAD 12:00
PROVIDERS: PCP Family Medicine; Visit Provider Internal Medicine Nephrology
DX: R05.3 Chronic cough (principal); Z87.828 Personal history of other (healed) physical injury and trauma
CPT/HCPCS: 71046

== ENCOUNTER 2022-02-11 07:07 | Outpatient (CLI) | payer MEDICARE, OTHER, SELFPAY ==
[2022-02-11 07:37] VITALS: BMI 28.7
--- NOTE | 2022-02-11 07:37 | ECG_ITS ---
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 Interpretive Statements NAME OF STUDY: LEXISCAN SESTAMIBI STRESS TEST INDICATION: Chest Pain PROCEDURE: At the baseline, the blood pressure was 132/57 mmHg with a heart rate of 54 bpm. The electrocardiogram showed sinus bradycardia, left axis deviation. Right bundle branch block. Left anterior fascicular block. Secondary ST-T wave changes. The Lexiscan was infused over a period of 20 seconds. A total of 0.4 milligrams of Lexiscan was infused. The stress phase was continued for a total of 5 minutes. Heart rate at the end of the stress phase was 55 bpm with a blood pressure of 117/60 mmHg. The EKG at the peak infusion revealed no significant ST-T wave changes. The study was terminated due to protocol completion. Sestamibi was injected 20 seconds after the Lexiscan infusion. Blood pressure at the end of the recovery phase was 117/60 mmHg with a heart rate of 55 beats per minute. CONCLUSION: 1. No significant EKG changes with the LexiScan infusion. 2. No LexiScan induced chest pain or cardiac arrhythmia. 3. Normal blood pressure and heart rate response. 4. Sestamibi/sestamibi perfusion scan pending; see separate report. Electronically Signed On 02-12-2022 12:12:41 CDT by Nella Montoya M.D. [id number]
--- NOTE | 2022-02-11 07:37 | NMCV_ITS ---
NM yareli perf SPECT r/s* [id number] Sherwin Yates Age: 71 Gender: M : 1950 Exam Date: 02/11/2022 08:37 Ordering Phys: Vernell Corado Technologist: NAGA Rob Exam Location: [facility] Indications: UNSTABLE ANGINA STRESS TEST Please see separate stress test report in [facility] for full findings IMAGE PROTOCOL Rest/Stress 1 Lexiscan Day Radiopharmaceutical Dose (mCi) Administration Site Administered by Rest: Tc-99m 11.0 IV NAGA Rob Sestamibi Stress:Tc-99m 32.8 IV NAGA Paul Sestamibi Rest: 11-Feb-2022 60 Discovery 630 Stress: 11-Feb-2022 30 Discovery 630 0.4mg Lexiscan. Supine position only as patient was unable to lay prone. SPECT RESULTS Technical Quality: Excellent Raw Data Analysis: Normal Image Corrections: No attenuation or motion correction applied Summed Stress Score: 22 Summed Rest Score: 21 Summed Difference Score: 3 PERFUSION FINDINGS Large size perfusion abnormality of moderate to severe severity of basal to apical anterior, basal to mid anterolateral, basal to mid inferolateral apical lateral apical inferior and apical gerardo on rest and stress images. FUNCTIONAL RESULTS (calculated via Gated SPECT) Stress Image LV EF (%): 47 Stress EDV (mL):226 TID: 1.1 Stress ESV (mL):119 FUNCTIONAL FINDINGS: The left ventricle is normal in size. Transient Ischemia Dilatation of 1.1. The left ventricular ejection fraction is mildly reduced with a value of 47%. There is hypokinesis of mid to apical anterior and apical gerardo. Increased end-diastolic and end-systolic volumes. IMPRESSIONS 1. Large sized predominantly fixed perfusion abnormality of basal to apical anterior, basal to mid anterolateral, basal to mid inferolateral, apical lateral, apical inferior and apical gerardo. 2. 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 3. The left ventricular ejection fraction is mildly reduced with a value of 47%. 4. There is hypokinesis of mid to apical anterior and apical gerardo. 5. No EKG changes with Lexiscan infusion. Refer to separate report for details. Nella Montoya MD (Electronically Signed) Final Date: 12 February 2022 12:20 S
[2022-02-11 09:15] VITALS: BP 119/57; PULSE 56
[2022-02-11] MEDS: regadenoson 0.4 Mg/5 ml Syringe IVP (09:15)
== END 2022-02-11 07:08 | disposition home or self-care (01) ==
LOC: CDL 07:09
PROVIDERS: PCP Family Medicine; Visit Provider Nurse Practitioner Family
DX: R07.9 Chest pain, unspecified (principal)
CPT/HCPCS: 78452; 93017; A9500; J2785

== ENCOUNTER 2022-02-12 11:54 | Outpatient (CLI) | payer MEDICARE, OTHER, SELFPAY ==
--- NOTE | 2022-02-12 12:00 | USCV_ITS ---
Sherwin Yates Age: 71 Gender: M : 1950 Exam Date: 02/12/2022 12:02 Ordering Phys: Vernell Corado Technologist: REBECCA [place] [facility] [place]ication: H/O BILAT CAROTID ARTERY SURG. Risk Factors: Previous Vascular Surgery: Right Brachial BP: / Left Brachial BP: / Right Left Velocity (cm/s) Spectral Plaque Velocity (cm/s) Spectral Plaque Syst/Diast Broadening Syst/Diast Broadening 100.30/14.30 Prox CCA 102.00/ 13.70 100.30/26.50 Mid CCA 100.30/ 9.90 114.70/22.10 Distal CCA 69.20 / 13.10 93.10/ 18.80 Prox ICA 91.70 / 27.60 85.40/ 28.20 Mid ICA 109.40/ 27.60 70.80/ 26.30 Distal ICA 92.30 / 23.90 79.20 ECA 113.60 0.81 ICA/CCA 1.07 Antegrade Vertebral Antegrade 31.60/ 7.90 cm/s 115.8/ 33.10 cm/s 0 Tri Subclavian Tri 117.0 164.7 0 0 FINDINGS Comparison:./09/03. No significant elevation of systolic or diastolic velocities. Waveforms are normal. Diffuse, mild bilateral scattered calcified plaque and intimal thickening throughout the common carotid arteries and extending through the bifurcation. Antegrade vertebral arteries. CONCLUSIONS Bilateral ICA stenosis less than 50%. Mild diffuse carotid atherosclerosis. Progression since the prior study. Dr. Sybil Montiel DO (Electronically Signed) Final Date: 12 February 2022 13:24 S
== END 2022-02-12 11:55 | disposition home or self-care (01) ==
LOC: RAD 11:54
PROVIDERS: PCP Family Medicine; Visit Provider Nurse Practitioner Family
DX: Z86.73 Personal history of transient ischemic attack (TIA), and cerebral infarction without residual deficits (principal); I65.23 Occlusion and stenosis of bilateral carotid arteries; Z48.812 Encounter for surgical aftercare following surgery on the circulatory system
CPT/HCPCS: 93880

== ENCOUNTER 2022-03-05 10:55 | Outpatient (CLI) | payer MEDICARE, OTHER, SELFPAY ==
--- NOTE | 2022-03-05 11:22 | CT_ITS ---
WS: [id number] CT ABDOMEN AND PELVIS NONCONTRAST HISTORY: LOSING WEIGHT HAVING BLOODY EFFLUENT TECHNIQUE: Imaging performed through the abdomen and pelvis. Coronal and sagittal reformats are submi tted. All CT scans at [facility] use at least one of these dose optimization techniques: auto mated exposure control; mA and/or kV adjustment per patient size (includes targeted exams where dose is matched to clinical indication); or iterative reconstruction. DLP: 1189.33 mGy.cm COMPARISON: 02/17/2015 Lower thorax: Pleural thickening at the RIGHT lung base. Very small RIGHT pleural effusion. Mild enla rgement of the heart. Moderate-sized hiatal hernia. Liver: Normal size liver. Gallbladder: Prior cholecystectomy. Pancreas: Mild diffuse pancreatic atrophy. Spleen: Normal. Adrenal glands: Normal. No mass. Right kidney: Mild atrophy with diffuse perinephric stranding. Perinephric stranding has increased si nce the prior study. Exophytic 8 mm slightly hyperdense nodule in the mid medial kidney. Left kidney: Atrophy with diffuse perinephric stranding. Aorta: Moderate to severe atherosclerosis abdominal aorta. No aneurysm. Atherosclerosis continues int o the common iliac arteries. There is extensive calcification throughout the aorta involving the orig ins of the celiac axis and SMA placement patient at increased risk for ischemic bowel. Small amount of free fluid. There are also scattered foci of free air within the peritoneal cavity wh ich is probably due to the peritoneal dialysis. GI tract: Stomach is markedly distended with contrast. No small bowel obstruction. Normal appendix. N o GI tract obstruction. Abdominal wall: Negative. No hernia. Pelvis: Peritoneal dialysis catheter coiled in the pelvis. There is a small amount of free fluid in t he pelvis and free fluid scattered throughout the abdomen. Very mild bladder wall thickening. No mass . Osseous structures: Unremarkable. CT/CT abdomen pelvis wo con [id number] IMPRESSION: 1. Small amount of free fluid scattered throughout the abdomen and a few foci of free air. These changes are most likely related to the peritoneal dialysis. 2. No GI tract obstruction. 3. Bilateral perinephric stranding with renal atrophy. 4. Increasing amount of retroperitoneal fat. 5. Small RIGHT pleural effusion and pleural thickening. 6. Cardiomegaly. 7. Small hiatal hernia. 8. Prior cholecystectomy. 9. Advanced atherosclerotic disease within the aorta and mesenteric arteries p lacing the patient at increased risk for ischemic bowel.
[2022-03-05] MEDS: barium sulfate 450 mL Oral Susp PO (12:08)
[2022-03-09 12:08] LABS: Quantiferon Mitogen >10.00 IU/mL; Quantiferon Nil 0.02 IU/mL; Quantiferon TB Gold NEGATIVE (NEGATIVE)
== END 2022-03-05 10:56 | disposition home or self-care (01) ==
PROVIDERS: PCP Family Medicine; Visit Provider Internal Medicine
DX: R63.4 Abnormal weight loss (principal); R88.0 Cloudy (hemodialysis) (peritoneal) dialysis effluent; J90 Pleural effusion, not elsewhere classified; I51.7 Cardiomegaly; K44.9 Diaphragmatic hernia without obstruction or gangrene; I25.10 Atherosclerotic heart disease of native coronary artery without angina pectoris
CPT/HCPCS: 36415; 74176; 86480

== ENCOUNTER → 2022-05-13 10:49 | Outpatient (BNVA) | payer MEDICARE, OTHER, SELFPAY | PROVIDERS: PCP Family Medicine; Visit Provider Internal Medicine Cardiovascular Disease | DX: I25.810 Atherosclerosis of coronary artery bypass graft(s) without angina pectoris (principal); I13.2 Hypertensive heart and chronic kidney disease with heart failure and with stage 5 chronic kidney disease, or end stage renal disease; E11.22 Type 2 diabetes mellitus with diabetic chronic kidney disease; N18.6 End stage renal disease; I50.9 Heart failure, unspecified; Z99.2 Dependence on renal dialysis; Z79.4 Long term (current) use of insulin; Z95.1 Presence of aortocoronary bypass graft | CPT/HCPCS: 99214 ==

== ENCOUNTER 2022-11-18 09:44 | Emergency (ER) | payer MEDICARE, OTHER, SELFPAY ==
[2022-11-18 09:51] VITALS: BMI 25.2
[2022-11-18 09:54] VITALS: BP 103/47; PULSE 62; RESP 18; O2SAT 97
--- NOTE | 2022-11-18 10:15 | ED_ITS ---
HPI - Fall General: Chief Complaint: Fall Stated Complaint: fall, right side pain, dialysis pt Time Seen by Provider: 11/18/22 10:01 History of Present Illness: Patient is a 52-year-old male comes to the ED with right flank pain after fall. Past medical history of CHF, diabetes, end-stage renal disease and is on peritoneal dialysis. Fall occurred this morning. Patient says he was walking in his bathroom and tripped over a throw rug. He fell and his right lateral side of abdomen hit edge of sink. Denies any head trauma, loss of consciousness or headache. He rates his pain currently a 7 out of 10. Denies any other injuries. Denies any bladder or bowel symptoms or any vomiting. Associated symptoms-after fall: Denies abdominal pain, chest pain, headache(s), hematuria or neck pain Review of Systems Const: Denies: fever(s), chills or fatigue Eyes: Denies: change in vision or eye discomfort ENMT: Denies: throat pain, odynophagia, nasal discharge or nasal congestion Card: Denies: chest pain, palpitations, edema, swelling of feet/ankles, dyspnea on exertion or orthopnea Resp: Denies: dyspnea, productive cough or non-productive cough GI: Denies: abdominal pain, nausea, vomiting, diarrhea, constipation or hem atochezia : Denies: flank pain, difficulty urinating, dysuria or hematuria Musc: Reports: other (Right flank pain); Denies: neck pain, back pain or extremity swelling Skin/Breast: Denies: rash or new lesions Neuro: Denies: headache(s), numbness in extremities or weakness in extremities PFS ED PFSH: Medical History Anemia CAD (coronary artery disease) Carotid stenosis Chest pain Congestive heart failure COPD (chronic obstructive pulmonary disease) CVA (cerebral vascular accident) Diabetes Dyslipidemia Continue statin ESRD (end stage renal disease) Peritoneal dialysis GERD (gastroesophageal reflux disease) Hepatitis C Hypersomnia Hypertension Improved control Neuropathy Peritoneal dialysis status started april of 2019 Sleep apnea Surgical History History of carotid endarterectomy Bilateral History of colonoscopy with polypectomy Patient had a normal colonoscopy he will not require further screening colonoscopies due to his age of 69. History of coronary artery bypass graft Family History Denies family history of Anesthesia complication Bleeding disorder Social History Smoking and tobacco status: never smoked Second hand smoke exposure: No Alcohol intake: never Adopted: No Caregiver/support person: Yes Lives independently: Yes Household members: spouse Housing: House Marital status: Highest education level completed: High School Graduate service: Yes (3 years ) branch: [employer] Current occupational status: retired Sexually active: No Current gender identity: Male María/Orthodoxy: Anabaptist Special maría needs: No Agree to transfusion: No Financial difficulty paying for basics: Decline to Answer Physical Exam Const: COMMON NORMALS: patient oriented x3 HENMT: COMMON NORMALS: normocephalic HEAD & SCALP: normocephalic MOUTH: Normal oral and palatal mucosa present THROAT: posterior oropharynx normal and uvula midline Neck/C-Spine: COMMON NORMALS: supple GENERAL: Yes normal visual inspection Resp: COMMON NORMALS: normal respiratory effort, No retractions, No use of accessory muscles and clear to auscultation bilaterally AUSCULTATION: clear to auscultation bilaterally Cardio: COMMON NORMALS: regular rate, regular rhythm, S1 normal heart sound present, S2 normal heart sound present, No gallops present (Cardio), No clicks present (Cardio), No murmurs present (Cardio) and Peripheral pulses 2+ throughout RATE: regular rate RHYTHM: regular rhythm HEART SOUNDS: S1 normal heart sound present and S2 normal heart sound present PERIPHERAL PULSES: Peripheral pulses 2+ throughout GI: COMMON NORMALS: Normal to inspection, nondistended, normoactive bowel sounds present, Soft to palpation, non-tender and no masses PALPATION: Yes Soft to palpation OTHER: Muscular tenderness to right lateral side of abdomen (oblique muscle). No ecchymosis or swelling noted. : COMMON NORMALS: Yes no CVA tenderness BLADDER/KIDNEY EXAM: Yes no CVA tenderness Back/Pelvis: COMMON NORMALS: no CVA tenderness Extremity: COMMON NORMALS: normal to inspection Neuro: COMMON NORMALS: patient oriented x3 GAIT: Yes Normal gait present Skin: GENERAL SKIN EXAM: dry skin Course Vital Signs: Vital signs: Vital Signs Pulse Rate 62 11/18/22 09:54 Respiratory Rate 18 11/18/22 09:54 Blood Pressure 107/53 11/18/22 11:25 Pulse Oximetry 97 11/18/22 09:54 Oxygen Delivery Me thod 11/18/22 09:54 MDM - Fall Medical Decision Making Patient is a 52-year-old male comes to the ED with right flank pain after fall. Past medical history of CHF, diabetes, end-stage renal disease and is on peritoneal dialysis. Fall occurred this morning. Patient says he was walking in his bathroom and tripped over a throw rug. He fell and his right lateral side of abdomen hit edge of sink. Denies any head trauma, loss of consciousness or headache. He rates his pain currently a 7 out of 10. Denies any other injuries. Denies any bladder or bowel symptoms or any vomiting. Patient had a blood pressure of 88/46 and was asymptomatic. Rest of vitals are stable. Exam is benign and patient just has muscular tenderness to right lateral side of abdomen (oblique muscle). KUB x-ray shows no acute findings. Labs were unremarkable. Patient was given half a liter of IV fluids and his blood pre ssure went back up and was 107/53. He was stable for discharge home and diagnosed with abdominal contusion. Sent home with a prescription for muscle relaxer and pain med. Told to follow-up with PCP in the next week for reevaluation. Return ED precautions given. Patient understood and agreed with plan. Lab Data I reviewed the patient's lab results. 11/18/22 10:55 11/18/22 10:55 Radiology Impressions KUB X-Ray 11/18/22 10:16 IMPRESSION: 1. Peritoneal dialysis catheter noted curled in the pelvis. 2. Normal bowel gas pattern 3. Mild stool burden. 4. No renal, ureteral, nor bladder calculi detected. Laboratory Results WBC 3.8 10^3/uL (4.0-10.0) L 11/18/22 10:55 RBC 4.23 10^6/uL (4.1-5.3) 11/18/22 10:55 Hgb 13.0 g/dL (11.7-16.6) 11/18/22 10:55 Hct 39.9 % (42.0-52.0) L 11/18/22 10:55 MCV 94.3 fl (80-94) H 11/18/22 10:55 MCH 30.7 pg (28.0-34.0) 11/18/22 10:55 MCHC 32.6 g/dL (30.0-36.0) 11/18/22 10:55 RDW 12.3 % (12.1-15.1) 11/18/22 10:55 Plt Count 174 10^3/cmm (130-400) 11/18/22 10:55 MPV 10.3 fL (7.4-10.4) 11/18/22 10:55 Neut % (Auto) 70.3 % 11/18/22 10:55 Lymph % (Auto) 19.6 % 11/18/22 10:55 [place] % (Auto) 7.2 % 11/18/22 10:55 Eos % (Auto) 2.1 % 11/18/22 10:55 Baso % (Auto) 0.5 % 11/18/22 10:55 Neut # (Auto) 2.65 10^3/uL (1.8-7.7) 11/18/22 10:55 Lymph # (Auto) 0.7 10^3/uL (0.8-4.8) L 11/18/22 10:55 [place] # (Auto) 0.3 10^3/uL (0.2-0.9) 11/18/22 10:55 Eos # (Auto) 0.1 10^3/uL (0.0-0.8) 11/18/22 10:55 Baso # (Auto) 0.0 10^3/uL (0.0-0.1) 11/18/22 10:55 Nucleated RBC % (auto) 0 % 11/18/22 10:55 Nucleated RBCs # 0.0 /100WBC 11/18/22 10:55 Sodium 131 mmol/L (136-145) L 11/18/22 10:55 Potassium 5.5 mmol/L (3.5-5.1) H 11/18/22 10:55 Chloride 97 mmol/L (98-107) L 11/18/22 10:55 Carbon Dioxide 24 mmol/L (22-29) 11/18/22 10:55 Anion Gap 15.5 (5-19) 11/18/22 10:55 BUN 48 mg/dL (8-23) H 11/18/22 10:55 Creatinine 5.4 mg/dL (0.7-1.2) H 11/18/22 10:55 GFR Calculation Not Reportable 11/18/22 10:55 Glucose 148 mg/dL (65-115) H 11/18/22 10:55 Calculated Osmolality 287 mOsm/kg (285-295) 11/18/22 10:55 Calcium 9.4 mg/dL (8.5-10.5) 11/18/22 10:55 Total Bilirubin 0.4 mg/dL (0.15-1.2) 11/18/22 10:55 AST 34 U/L (0-40) 11/18/22 10:55 ALT 23 U/L (0-41) 11/18/22 10:55 Alkaline Phosphatase 55 U/L (40-130) 11/18/22 10:55 Total Protein 6.3 g/dL (6.6-8.7) L 11/18/22 10:55 Albumin 3.5 g/dL (3.5-5.2) 11/18/22 10:55 Globulin 2.8 g/dL (1.3-4.6) 11/18/22 10:55 Discharge Plan Discharge Patient Disposition: Home Clinical Impression: Abdominal contusion Qualifiers: Encounter type: initial encounter Qualified Code(s): S30.1XXA - Contusion of abdominal wall, initial encounter Condition: Stable Prescriptions: New methocarbamol 750 mg tablet 750 mg PO Q8H PRN (Reason: Muscle spasms and pain) Qty: 20 0RF No Action hydralazine 50 mg tablet 50 mg PO TID furosemide 40 mg tablet 40 mg PO QAM sevelamer HCl 800 mg tablet 1,600 - 2,400 mg PO TID Lantus U-100 Insulin 100 unit/mL solution 10 unit SUBCUT BEDTIME isosorbide mononitrate 30 mg tablet extended release 24 hr 30 mg PO TID aspirin 81 mg Tablet,Delayed Release (Dr/Ec) 81 mg PO QAM pantoprazole 40 mg tablet,delayed release (DR/EC) 40 mg PO QAM chlorhexidine gluconate 0.12 % mouthwash 15 ml PO BID PRN (Reason: unknown) Rx Instructions: swish and spit cholecalciferol (vitamin D3) [Vitamin D3] 125 mcg (5,000 unit) Tablet 125 mcg PO BEDTIME multivitamin Tablet 1 tab PO DAILY spironolactone 25 mg tablet 12.5 mg PO BID doxazosin 8 mg tablet 4 mg PO BID metoprolol tartrate 100 mg tablet 50 mg PO BID clonidine HCl 0.3 mg Tablet 0.3 mg PO BEDTIME PRN (Reason: Sleep) simvastatin 80 mg tablet 40 mg PO BEDTIME Nitrostat 0.4 mg Tablet, Sublingual 0.4 mg SUBLINGUAL Q5M PRN (Reason: Chest Pain) Rx Instructions: do not exceed 3 doses per episode losartan 100 mg tablet 100 mg PO QAM RenaPlex-D 800 mcg-12.5 mg -2,000 unit tablet 1 tab PO DAILY Rx Instructions: after dialysis Lyrica 25 mg capsule 25 mg PO BID PRN (Reason: Pain) Discharge Orders: Discharge ED (Routine); Ordered 11/18/22 Ordered By: Barrington Trevino Referrals: Elias Conteh MD [Primary Care Provider] - Discharge Diet: Regular Discharge Activity: Increase activity as tolerated Patient Instructions: Contusion in Adults (ED) Activity Restrictions/Additional Instructions: Follow-up with medical provider as directed in the next 3 to 5 days for reevaluation. Take medications as prescribed. Apply cold pack on sore area of abdomen 10 to 15 minutes at a time multiple times a day. return to the ER or your medical provider if condition worsens. Please read and understand discharge instructions. Thank you for choosing [facility] for your healthcare needs today. Please realize this is an emergency room and that we are providing you with a medical screening exam and this may not be complete and all inclusive of all the testing and or work up that you may need to determine your ailment or severity of your illness. It is very important that you follow up as instructed or that you return to the Emergency Department should you have concerns or if your condition changes or worsens in any way. Coding Level of Care Code ED Crime Analyst for Ines Matias
--- NOTE | 2022-11-18 10:16 | XRR_ITS ---
PROCEDURE INFORMATION: Exam: XR Abdomen Exam date and time: 11/18/2022 10:20 AM Age: 72 years old Clinical indication: Abdominal pain; Other: Right side; Additional info: Right flank pain after fall TECHNIQUE: Imaging protocol: Radiologic exam of the abdomen. Views: Frontal supine view of the abdomen. 1 View. Total images: 1 COMPARISON: CT abdomen pelvis wo con [id number] 03/05/2022 12:19 PM FINDINGS: Tubes, catheters and devices: Peritoneal dialysis catheter noted curled in the pelvis. Gastrointestinal tract: Bowel gas pattern is nondistended and nonobstructive. Organs: No renal, ureteral, nor bladder calculi detected. Bones/joints: Changes of sternotomy are noted. Mild scattered degenerative changes of the spine. Other findings: Mild stool burden. XR/XR KUB [id number] IMPRESSION: 1. Peritoneal dialysis catheter noted curled in the pelvis. 2. Normal bowel gas pattern 3. Mild stool burden. 4. No renal, ureteral, nor bladder calculi detected.
[2022-11-18] MEDS: sodium chloride 0.9% 500 ML 999 ML IV (10:57)
[2022-11-18 11:06] LABS: Basophils % 0.5 %; Eosinophils # 0.1 10^3/uL (0.0-0.8); Eosinophils % 2.1 %; Hematocrit 39.9 % (42.0-52.0); Lymphocytes # 0.7 10^3/uL (0.8-4.8); Lymphocytes % 19.6 %; Mean Corpuscular HGB Conc 32.6 g/dL (30.0-36.0); Mean Corpuscular Hemoglobin 30.7 pg (28.0-34.0); Mean Corpuscular Volume 94.3 fl (80-94); Mean Platelet Volume 10.3 fL (7.4-10.4); Monocytes # 0.3 10^3/uL (0.2-0.9); Monocytes % 7.2 %; Neutrophils # 2.65 10^3/uL (1.8-7.7); Neutrophils % 70.3 %; Nucleated Red Blood Cells % 0 %; Platelet Count 174 10^3/cmm (130-400); Red Blood Count 4.23 10^6/uL (4.1-5.3); Red Cell Distribution Width 12.3 % (12.1-15.1); White Blood Count 3.8 10^3/uL (4.0-10.0)
[2022-11-18 11:22] LABS: Alanine Aminotransferase 23 U/L (0-41); Albumin Level 3.5 g/dL (3.5-5.2); Alkaline Phosphatase 55 U/L (40-130); Blood Urea Nitrogen 48 mg/dL (8-23); Calcium 9.4 mg/dL (8.5-10.5); Carbon Dioxide 24 mmol/L (22-29); Chloride 97 mmol/L (98-107); Globulin 2.8 g/dL (1.3-4.6); Glucose 148 mg/dL (65-115); Osmolality Calculated 287 mOsm/kg (285-295); Sodium 131 mmol/L (136-145); Total Bilirubin 0.4 mg/dL (0.15-1.2); Total Protein 6.3 g/dL (6.6-8.7)
[2022-11-18 11:25] VITALS: BP 107/53
[2022-11-18 11:30] LABS: Anion Gap 15.5 (5-19); Aspartate Amino Transferase 34 U/L (0-40)
[2022-11-18 11:31] LABS: Potassium 5.5 mmol/L (3.5-5.1)
== END 2022-11-18 12:25 | disposition home or self-care (01) ==
PROVIDERS: Emergency Provider Physician Assistant; PCP Family Medicine
DX: S30.1XXA Contusion of abdominal wall, initial encounter (principal); Z79.82 Long term (current) use of aspirin; Z79.4 Long term (current) use of insulin; I25.10 Atherosclerotic heart disease of native coronary artery without angina pectoris; J44.9 Chronic obstructive pulmonary disease, unspecified; Z86.73 Personal history of transient ischemic attack (TIA), and cerebral infarction without residual deficits; I13.2 Hypertensive heart and chronic kidney disease with heart failure and with stage 5 chronic kidney disease, or end stage renal disease; E11.22 Type 2 diabetes mellitus with diabetic chronic kidney disease; N18.6 End stage renal disease; I50.9 Heart failure, unspecified; E78.5 Hyperlipidemia, unspecified; Z86.19 Personal history of other infectious and parasitic diseases; Z95.1 Presence of aortocoronary bypass graft; Z99.2 Dependence on renal dialysis; W18.09XA Striking against other object with subsequent fall, initial encounter
CPT/HCPCS: 74018; 80053; 85025; 96360; 99284; J7040

== ENCOUNTER → 2023-01-04 14:18 | Outpatient (BNVA) | payer MEDICARE, OTHER, SELFPAY | PROVIDERS: PCP Family Medicine; Visit Provider Family Medicine | DX: N18.6 End stage renal disease (principal) | CPT/HCPCS: 80048 ==

== ENCOUNTER 2023-01-30 10:46 | Emergency (ER) | payer MEDICARE, OTHER, SELFPAY ==
[2023-01-30 11:06] VITALS: BP 177/99; PULSE 87; RESP 20; TEMP 36.8; O2SAT 97
--- NOTE | 2023-01-30 11:34 | XRR_ITS ---
PROCEDURE INFORMATION: Exam: XR Chest Exam date and time: 01/30/2023 11:51 AM Age: 72 years old Clinical indication: Shortness of breath; Additional info: SOB TECHNIQUE: Imaging protocol: Radiologic exam of the chest. Views: 1 view. COMPARISON: CR XR chest 2V* [id number] 12/18/2021 12:14 PM FINDINGS: Lungs: Emphysematous change and interstitial prominence. Pleural spaces: Right pleural calcification and thickening, with blunting of the right costophrenic angle. Additional loculated right fissural fluid collection. Heart/Mediastinum: No cardiomegaly. Vasculature: Calcification of the thoracic aorta. Bones/joints: Osteopenia and degenerative change. Median sternotomy. XR/XR chest 1V portable [id number] IMPRESSION: 1. Right pleural calcification and thickening with blunting of the right costophrenic angle. 2. Loculated right fissural fluid collection.
[2023-01-30 12:09] VITALS: BP 177/99; PULSE 89
[2023-01-30] MEDS: nitroglycerin 1 gm/inch oint Pkt 0.5 INCH TOPICAL (12:09)
[2023-01-30] MEDS: aspirin 325 mg Tablet PO (12:10)
[2023-01-30 12:27] LABS: Hematocrit 39.7 % (42.0-52.0); Hemoglobin 12.6 g/dL (11.7-16.6); Lymphocytes # 0.3 10^3/uL (0.8-4.8); Lymphocytes % 3.7 %; Mean Corpuscular HGB Conc 31.7 g/dL (30.0-36.0); Mean Corpuscular Hemoglobin 30.7 pg (28.0-34.0); Mean Corpuscular Volume 96.6 fl (80-94); Mean Platelet Volume 10.7 fL (7.4-10.4); Monocytes # 0.3 10^3/uL (0.2-0.9); Monocytes % 3.7 %; Neutrophils # 8.38 10^3/uL (1.8-7.7); Neutrophils % 92.2 %; Nucleated Red Blood Cells % 0 %; Platelet Count 231 10^3/cmm (130-400); Red Blood Count 4.11 10^6/uL (4.1-5.3); Red Cell Distribution Width 13.6 % (12.1-15.1); White Blood Count 9.1 10^3/uL (4.0-10.0)
[2023-01-30 12:40] LABS: D Dimer 2.33 ug/mIFEU (0-0.59)
[2023-01-30 12:41] VITALS: BP 171/97; PULSE 89; O2SAT 95
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
[2023-01-30] MEDS: ondansetron 2 mg/ML SDV 2 mL 4 MG IVP (12:48)
[2023-01-30] MEDS: cefTRIAXone 1,000 MG in sodium chloride 0.9% (plus) 50 ML 100 MG IV (12:53)
[2023-01-30 12:58] LABS: Alanine Aminotransferase 15 U/L (0-41); Albumin Level 3.7 g/dL (3.5-5.2); Alkaline Phosphatase 62 U/L (40-130); Aspartate Amino Transferase 21 U/L (0-40); Blood Urea Nitrogen 48 mg/dL (8-23); Calcium 9.7 mg/dL (8.5-10.5); Carbon Dioxide 22 mmol/L (22-29); Chloride 99 mmol/L (98-107); Globulin 2.7 g/dL (1.3-4.6); Glucose 277 mg/dL (65-115); Osmolality Calculated 299 mOsm/kg (285-295); Sodium 133 mmol/L (136-145); Total Bilirubin 0.5 mg/dL (0.15-1.2); Total Protein 6.4 g/dL (6.6-8.7)
[2023-01-30 12:59] LABS: Anion Gap 17.7 (5-19); Potassium 5.7 mmol/L (3.5-5.1)
--- NOTE | 2023-01-30 13:00 | CTR_ITS ---
PROCEDURE INFORMATION: Exam: CTA Chest With Contrast Exam date and time: 01/30/2023 1:30 PM Age: 72 years old Clinical indication: Shortness of breath; Prior surgery; Surgery date: 6+ months; Surgery type: Heart; Additional info: SOB TECHNIQUE: Imaging protocol: Computed tomographic angiography of the chest with contrast. Exam focused on the arteries. 3D rendering (Not supervised by radiologist): MIP and/or 3D reconstructed images were created by the technologist. Radiation optimization: All CT scans at this facility use at least one of these dose optimization techniques: automated exposure control; mA and/or kV adjustment per patient size (includes targeted exams where dose is matched to clinical indication); or iterative reconstruction. Contrast material: OMNI 350; Contrast volume: 100 ml; Contrast route: INTRAVENOUS (IV); REPORTING DATA: Count of CT and Cardiac NM exams in prior 12 months: This patient has received 2 known CTs and 0 known cardiac nuclear medicine studies in the 12 months prior to the current study. COMPARISON: CT chest [facility] [id number] 10/19/2019 4:14 PM RADIATION DOSE METRICS: Total DLP (mGy-cm): 384.24 FINDINGS: Pulmonary arteries: No pulmonary embolus in the opacified pulmonary arteries. Aorta: Calcification and ectasia of the thoracic aorta. Veins: Refluxed contrast into the inferior vena cava and hepatic veins. Lungs: Interstitial prominence , chronic granulomatous disease, and bilateral airspace disease. Pleural spaces: Small dependent pleural effusions, right greater than left. Right pleural thickening and extensive calcification. Loculated right fissural effusion. Heart: Coronary artery calcification. Borderline cardiomegaly. Mediastinal space: Wall thickening in the nondistended distal esophagus and stomach. Lymph nodes: Mildly enlarged lymph nodes including 2.1 x 1.3 x 2.1 cm right paratracheal lymph node. Diaphragm: Asymmetric elevation of right hemidiaphragm. Upper abdomen: Status post cholecystectomy. Spleen upper limits of normal size. Hepatic and splenic granulomata. Left adrenal nodularity. Left renal atrophy. Intraperitoneal fluid and mild infiltration of mesenteric fat. Bowel dilatation the visualized upper abdomen. Bones/joints: Median sternotomy. Old rib fractures. Degenerative change and Schmorl's nodes. Soft tissues: Gynecomastia. Subcutaneous edema. CT/CT angio chest PE protcl [id number] IMPRESSION: 1. No pulmonary embolus in the opacified pulmonary arteries. 2. Right pleural thickening and extensive calcification. Loculated right fissural effusion. 3. Additional findings as described above.
[2023-01-30] MEDS: azithromycin 500 MG in sodium chloride 0.9% 250 ML 250 MG IV (13:10)
[2023-01-30 13:23] LABS: NT Pro B Type Natriuretic Pept > 70000 pg/mL (0-125)
[2023-01-30] MEDS: iohexol 350 mg/mL 500 mL Btl (per mL) IV (13:36)
[2023-01-30 14:00] VITALS: BP 172/98; PULSE 90; O2SAT 95
== END 2023-01-30 15:03 | disposition home or self-care (01) ==
PROVIDERS: Emergency Provider Family Medicine; PCP Family Medicine
DX: J90 Pleural effusion, not elsewhere classified (principal); E11.22 Type 2 diabetes mellitus with diabetic chronic kidney disease; I13.2 Hypertensive heart and chronic kidney disease with heart failure and with stage 5 chronic kidney disease, or end stage renal disease; I50.9 Heart failure, unspecified; N18.6 End stage renal disease; Z99.2 Dependence on renal dialysis; I25.10 Atherosclerotic heart disease of native coronary artery without angina pectoris; J44.9 Chronic obstructive pulmonary disease, unspecified; Z86.73 Personal history of transient ischemic attack (TIA), and cerebral infarction without residual deficits; E78.5 Hyperlipidemia, unspecified; Z86.19 Personal history of other infectious and parasitic diseases; Z95.1 Presence of aortocoronary bypass graft; Z79.82 Long term (current) use of aspirin; Z79.4 Long term (current) use of insulin
CPT/HCPCS: 71045; 71275; 80053; 83880; 85025; 85378; 87040; 96365; 96367; 96375; 99285; J0456; J0696; J2405; J7050; Q9967

== ENCOUNTER 2023-02-01 10:06 | Observation (INO) | payer MEDICARE, OTHER, SELFPAY ==
[2023-02-01] VITALS (55 sets, daily range): BP systolic 147–178; BP diastolic 83–111; PULSE 86–105; RESP 17–41; TEMP 36.6–36.9; O2SAT 91–100; BMI 23.5
--- NOTE | 2023-02-01 10:22 | XR_ITS ---
WS: [id number] EXAMINATION: XR chest 1V portable [id number] REASON FOR EXAM: dyspnea/cough COMPARISON: 01/30/2023 ORDER DATE: 02/01/2023 10:31 AM TECHNIQUE: A single, portable frontal chest x-ray was obtained. X-RAY FINDINGS: Lungs: Emphysematous change and interstitial prominence. Pleural spaces: Right pleural calcification and thickening, with blunting of the right costophrenic angle. Unchanged opacity considered previously as a loculated right fissural f luid collection. Other consideration would be a cystic cavity with fluid Heart/Mediastinum: No cardiomegaly. Vasculature: Calcification of the thoracic aorta. Bones/joints: Osteopenia and degenerative change. Median sternotomy. XR/XR chest 1V portable [id number] IMPRESSION: 1. Right pleural calcification and thickening with blunting of the right costophrenic angle. 2. Unchanged loculated right fissural fluid collection versus cystic focus with fluid layering. Recommend lateral chest view or CT of the chest for further as sessment.
--- NOTE | 2023-02-01 10:33 | ECG_ITS ---
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 Measurements Intervals Cameron Rate: 92 P: 14 HI: 151 QRS: -81 QRSD: 152 T: 110 QT: 393 QTc: 487 Interpretive Statements SINUS RHYTHM RIGHT BUNDLE BRANCH BLOCK [120+ ms QRS DURATION, UPRIGHT V1, 40+ ms S IN I/aVL/V4/V5/V6] LEFT ANTERIOR FASCICULAR BLOCK [QRS AXIS <= -45, QR IN I, RS IN II] LEFT VENTRICULAR HYPERTROPHY AND ST-T CHANGE [VOLTAGE CRITERIA PLUS ST/T ABNORMALITY] POSSIBLE ANTERIOR MYOCARDIAL INFARCTION , OF INDETERMINATE AGE [30 ms Q WAVE IN V3/V4, OR R < 0.2 mV IN V4] Compared to ECG 08/04/2021 19:23:16 Left ventricular hypertrophy now present ST (T wave) deviation now present Myocardial infarct finding now present Sinus bradycardia no longer present Electronically Signed On 02-01-2023 17:25:14 CDT by Kiran Larkin M.D. [id number]
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
--- NOTE | 2023-02-01 10:43 | PC.PHAR ---
Addendum entered by Nela Fishman 02/01/23 11:16: pt states his is in [place] waiting on a liver transplant states he doesnt have his med list with him but states sita from [facility] [phone] will fax med list-pt states when we get med list he will be able to tell us what he takes Original Note: [facility]ed [facility] closed due [facility] holiday
[2023-02-01 11:00] LABS: ABG PCO2 26.6 mmHg (35-45); ABG PH Result 7.47 (7.35-7.45); Arterial Blood Gas Hematocrit 40.8 % (42-52); Base Excess ABG -3.1 mmol/L (-2.0-2.0); Blood Gas Allen Test Pos; Blood Gas Operator Identificat WALCI; Blood Gas Sample Site Radial, left; Blood Gas Sample Type Arterial; Carboxyhemoglobin 0.6 %THgb (0.4-20.1); HCO3 ABG 19.2 mmol/L (22-26); HGB O2 Sat 95.3 % (95-100); Ionized Calcium Level - ABG 1.2 mmol/L (1.1-1.4); Methemoglobin 0.6 % (0.4-1.5); Oxygen Device ROOM AIR; Oxygen Saturation ABG 96.4; PO2 ABG 83.6 mmHg (80.0-100.0); Potassium Level - ABG 5.9 mmol/L (3.5-5.0); Total Hemoglobin 13.3 g/dL (14-18)
[2023-02-01 11:07] LABS: Basophils % 0.1 %; Hematocrit 41.1 % (42.0-52.0); Hemoglobin 13.1 g/dL (11.7-16.6); Lymphocytes # 0.4 10^3/uL (0.8-4.8); Mean Corpuscular HGB Conc 31.9 g/dL (30.0-36.0); Mean Corpuscular Hemoglobin 30.6 pg (28.0-34.0); Mean Platelet Volume 10.8 fL (7.4-10.4); Monocytes # 0.4 10^3/uL (0.2-0.9); Monocytes % 4.9 %; Neutrophils # 7.36 10^3/uL (1.8-7.7); Neutrophils % 89.5 %; Nucleated Red Blood Cells % 0 %; Platelet Count 220 10^3/cmm (130-400); Red Blood Count 4.28 10^6/uL (4.1-5.3); Red Cell Distribution Width 13.3 % (12.1-15.1); White Blood Count 8.2 10^3/uL (4.0-10.0)
[2023-02-01 11:28] LABS: Alanine Aminotransferase 22 U/L (0-41); Albumin Level 3.8 g/dL (3.5-5.2); Alkaline Phosphatase 66 U/L (40-130); Anion Gap 23.3 (5-19); Aspartate Amino Transferase 19 U/L (0-40); Blood Urea Nitrogen 61 mg/dL (8-23); Calcium 9.7 mg/dL (8.5-10.5); Carbon Dioxide 19 mmol/L (22-29); Chloride 96 mmol/L (98-107); Globulin 2.4 g/dL (1.3-4.6); Glucose 205 mg/dL (65-115); Osmolality Calculated 297 mOsm/kg (285-295); Potassium 6.3 mmol/L (3.5-5.1); Sodium 132 mmol/L (136-145); Total Bilirubin 0.6 mg/dL (0.15-1.2); Total Protein 6.2 g/dL (6.6-8.7)
[2023-02-01 11:31] LABS: Lactic Sepsis W/Reflex 2.1 mmol/L (0.5-2.2)
[2023-02-01 13:00] LABS: Reflex Lactate Order REFLEX LACTIC ORDERD
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
[2023-02-01] MEDS: calcium chloride 10% Syr 10 mL 1 GM IVP (13:32)
[2023-02-01] MEDS: sodium polystyrene sulfonate 15 gm/60 mL Btl 30 GM PO (13:33)
[2023-02-01] MEDS: sodium bicarbonate 1 mEq/mL SDV 50mL 100 MEQ IVP (13:33)
[2023-02-01] MEDS: sodium chloride 0.9% 1,000 ML 999 ML IV (13:33)
[2023-02-01 13:55] LABS: Lactic Acid level (Lactate) 2.2 mmol/L (0.5-2.2)
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
[2023-02-01 18:00] LABS: Blood Urea Nitrogen 63 mg/dL (8-23); Calcium 9.8 mg/dL (8.5-10.5); Carbon Dioxide 16 mmol/L (22-29); Chloride 102 mmol/L (98-107); Glucose 258 mg/dL (65-115); Osmolality Calculated 313 mOsm/kg (285-295); Sodium 138 mmol/L (136-145)
[2023-02-01 18:01] LABS: Anion Gap 26.1 (5-19); Potassium 6.1 mmol/L (3.5-5.1)
[2023-02-01] MEDS: sevelamer 800 mg Tablet 2400 MG PO (18:36)
[2023-02-01] MEDS: hyDRALAzine 50 mg Tablet PO (20:42)
[2023-02-01] MEDS: atorvastatin 40 mg Tablet 20 MG PO (20:42)
[2023-02-01] MEDS: metoprolol tartrate 50 mg Tablet PO (20:42)
[2023-02-01] MEDS: cholecalciferol (vitamin D3) 5,000 unit Tablet 5000 UNIT PO (20:43)
[2023-02-01] MEDS: heparin 5,000 unit/mL INJ 1 mL 5000 UNIT SUBCUT (20:44)
--- NOTE | 2023-02-01 21:45 | PC.NURSE ---
Pt is on PD and requested to use at home supplies. The pt began with a green bag tonight that is 2.5% dextrose and the beginning exchange weight was 2500 Grams. Pt began dwelling at 21:14, dwell time is to be 6 hours. Next bag is to be a yellow Which is 1.5% dextrose.
[2023-02-01 21:46] LABS: Glucose Point of Care 368 mg/dL (70-110)
[2023-02-01] MEDS: insulin glargine 100 units/1 mL 15 UNIT SUBCUT (21:57)
[2023-02-01] MEDS: insulin lispro 100 unit/1 mL SUBCUT (21:58)
[2023-02-02] VITALS: BP 159/83; PULSE 88; RESP 17; TEMP 37.1; O2SAT 97
[2023-02-02 03:50] VITALS: BP 156/90; PULSE 84; RESP 17; TEMP 37.1; O2SAT 97
--- NOTE | 2023-02-02 04:44 | PC.NURSE ---
PD DIALYSIS 2800 Grams was drained off the pt with the end exchange of the Green bag . The Yellow bag 1.5% dextrose was instilled at 0400 for a dwell time of 6hours. Begin exchange weight was 2500 grams. No complications were experienced and pd site was redressed.
[2023-02-02 04:58] LABS: Basophils % 0.1 %; Eosinophils % 0.1 %; Hematocrit 42.9 % (42.0-52.0); Hemoglobin 13.1 g/dL (11.7-16.6); Lymphocytes # 0.8 10^3/uL (0.8-4.8); Lymphocytes % 8.8 %; Mean Corpuscular HGB Conc 30.5 g/dL (30.0-36.0); Mean Corpuscular Hemoglobin 30.6 pg (28.0-34.0); Mean Corpuscular Volume 100.2 fl (80-94); Mean Platelet Volume 10.8 fL (7.4-10.4); Monocytes # 0.8 10^3/uL (0.2-0.9); Monocytes % 8.4 %; Neutrophils # 7.58 10^3/uL (1.8-7.7); Neutrophils % 82.2 %; Nucleated Red Blood Cells % 0 %; Platelet Count 214 10^3/cmm (130-400); Red Blood Count 4.28 10^6/uL (4.1-5.3); Red Cell Distribution Width 13.6 % (12.1-15.1); White Blood Count 9.2 10^3/uL (4.0-10.0)
[2023-02-02 05:04] LABS: INR 1.28 (0.8-1.2)
[2023-02-02 05:05] LABS: Partial Thromboplastin Time 25.2 SECONDS (23.9-36.7)
[2023-02-02 05:20] LABS: Estmated Average Glucose 134; Hemoglobin A1C 6.3 % (4.0-6.0)
[2023-02-02 05:21] LABS: Procalcitonin 0.17 ng/mL (0-0.5); Thyroid Stimulating Hormone 2.52 uIU/mL (0.27-4.20)
[2023-02-02 05:32] LABS: Blood Urea Nitrogen 64 mg/dL (8-23); Calcium 9.6 mg/dL (8.5-10.5); Carbon Dioxide 19 mmol/L (22-29); Chloride 98 mmol/L (98-107); Cholesterol 152 mg/dL (0-200); Glucose 100 mg/dL (65-115); HDL Cholesterol 38 mg/dL (60-100); LDL Cholesterol Calculated 87 mg/dL (50-129); LDL HDL Ratio 2.29 RATIO (0.00-3.22); Magnesium 2.6 mg/dL (1.7-2.3); Osmolality Calculated 304 mOsm/kg (285-295); Phosphorus 4.8 mg/dL (2.5-4.5); Sodium 138 mmol/L (136-145); Triglycerides 134 mg/dL (0-150)
[2023-02-02] MEDS: FUROsemide 40 mg Tablet PO (05:34)
[2023-02-02] MEDS: aspirin 81 mg EC Tablet PO (05:34)
[2023-02-02 05:37] LABS: Creatinine Clr Calc Pharmacy 9.8278
[2023-02-02 06:00] VITALS: BMI 24.0
[2023-02-02 06:14] VITALS: PULSE 84
[2023-02-02 06:44] LABS: Glucose Point of Care 174 mg/dL (70-110)
[2023-02-02 07:51] VITALS: BP 168/85; PULSE 63; RESP 17; TEMP 36.9; O2SAT 96
[2023-02-02] MEDS: sevelamer 800 mg Tablet 2400 MG PO (07:56)
[2023-02-02] MEDS: doxazosin 4 mg Tablet PO (07:56)
[2023-02-02] MEDS: insulin lispro 100 unit/1 mL SUBCUT (07:56)
[2023-02-02] MEDS: hyDRALAzine 50 mg Tablet PO (07:57)
[2023-02-02] MEDS: pantoprazole DR 40 mg Tablet PO (07:57)
[2023-02-02] MEDS: b-complex-vitamin c Tablet 1 EACH PO (07:57)
[2023-02-02] MEDS: heparin 5,000 unit/mL INJ 1 mL 5000 UNIT SUBCUT (07:57)
[2023-02-02] MEDS: metoprolol tartrate 50 mg Tablet PO (07:57)
[2023-02-02] MEDS: fluticasone nasal spray 16gm Btl 1 SPRAY INTRANASAL (07:58)
--- NOTE | 2023-02-02 09:56 | PC.CHAP ---
Pastoral Care Encounter/Spiritual Assessment Type of Contact [] Declined mixer tender visit [] Patient/Family/Request visit [] Outpatient visit [] Follow-up visit [] Physician referral [] Code/Alert [x] Routine visit [] Staff referral [] Actively dying [] Patient sleeping [] Family support [] [] Out of room [] Palliative care [] [] Receiving care in room [] Pre-surgical visit [] Trauma [] Long length of stay [] ICU visit [] Other: Relational/Emotional Strength [x] Patient feels connected with others/family/visitors/staff [] Distress [] Loneliness/isolation [] Abandonment Spirituality of Patient [x] Person of María [x] Attends Islam of their María [x] Believes in Prayer [x] Reads Bible or Latter-Day materials [] There are Spiritual issues to be addressed 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 Interventions [x] Prayer [x] Active listening [] Non-anxious presence [x] Spiritual/emotional support [] Crisis/trauma care [] Spiritual counseling [] Bereavement support [] Provided bereavement packet [] Provided Bible/devotional materials [] Provided toy/stuffed animal, coloring book to patient or family member [] Provided Communion [] Anointing/[place] [] Salvation [x] Completed spiritual assessment [] Other: Impact on Illness or Injury [] Angry [] Fearful [] Anxious [] Often cries [] Exhaustion [] Unable to work [] Unable to attend alevism [] Unable to walk/stand [] Unable to read [] Unable to drive [] Unable to eat/drink [] Unable to sleep [] Unable to be with family [] Patient intubated [] Other: Summary Time spent with patient 10 min
[2023-02-02 10:47] LABS: Glucose Point of Care 145 mg/dL (70-110)
--- NOTE | 2023-02-02 10:47 | PM.DCS ---
Discharge Providers Date of Admission: 02/01/23 13:42 Date of Discharge: February 02, 2023 Attending Provider at Admission: Hanane Trujillo MD Attending Provider at Discharge: Peng Aguirre MD Primary Care Provider: Elias Conteh MD Diagnoses at Discharge Discharge Diagnosis (1) Acute hyperkalemia: Status: Acute (2) ESRD (end stage renal disease): Status: Chronic Permanent problem details: Peritoneal dialysis (3) Pleural effusion, right: Status: Chronic Permanent problem details: Loculated, located in the right fissure, present at least since 2019 on available imaging reports; patient indicates has been present since the [place] War (4) Hypertension: Status: Chronic (5) GERD (gastroesophageal reflux disease): Status: Chronic (6) Diabetes: Status: Chronic Permanent problem details: type 2 (7) Congestive heart failure: Status: Chronic Permanent problem details: EF per echo 07/2021 55%, grade II diastolic dysfunction (8) CVA (cerebral vascular accident): Status: Chronic (9) Weight loss: Status: Acute Reason for Visit Reason for Visit: SOB, dry heaves Hospital Course Hospital Course 73-year-old male with history of end-stage renal disease peritoneal dialysis dependent, patient was only using 1 PD exchange for last few days since his got transferred to [facility], he was experiencing nausea vomiting and fatigue related to hyperkalemia, social worker health services recommended using 2 PD exchanges instead of 1 that improved his symptoms. Patient will be discharged home with new instructions for his peritoneal dialysis. Patient will resume his antihypertensive regimen and not changing any of his home meds at this point. He is afebrile hemodynamic stable. Patient endorsing feeling better. Physical Exam Narrative: S1, S2 No wheezing or crackles Currently on room air Patient is pleasant and cooperative Sitting at the bedside Peritoneal dialysis exchange at the time of my evaluation Discharge Data Studies Completed and Pending Completed Studies During Hospitalization Category Date Time Status XR chest 1V portable [id number] Stat Exams 02/01/23 10:22 Completed Pending at discharge Category Date Time Status Urinalysis Stat Lab 02/01/23 10:22 Uncollected Radiology Impressions Chest X-Ray 02/01/23 10:22 IMPRESSION: 1. Right pleural calcification and thickening with blunting of the right costophrenic angle. 2. Unchanged loculated right fissural fluid collection versus cystic focus with fluid layering. Recommend lateral chest view or CT of the chest for further assessment. Laboratory Results WBC 9.2 10^3/uL (4.0-10.0) 02/02/23 04:39 RBC 4.28 10^6/uL (4.1-5.3) 02/02/23 04:39 Hgb 13.1 g/dL (11.7-16.6) 02/02/23 04:39 Hct 42.9 % (42.0-52.0) 02/02/23 04:39 MCV 100.2 fl (80-94) H 02/02/23 04:39 MCH 30.6 pg (28.0-34.0) 02/02/23 04:39 MCHC 30.5 g/dL (30.0-36.0) 02/02/23 04:39 RDW 13.6 % (12.1-15.1) 02/02/23 04:39 Plt Count 214 10^3/cmm (130-400) 02/02/23 04:39 MPV 10.8 fL (7.4-10.4) H 02/02/23 04:39 Neut % (Auto) 82.2 % 02/02/23 04:39 Lymph % (Auto) 8.8 % 02/02/23 04:39 [place] % (Auto) 8.4 % 02/02/23 04:39 Eos % (Auto) 0.1 % 02/02/23 04:39 Baso % (Auto) 0.1 % 02/02/23 04:39 Neut # (Auto) 7.58 10^3/uL (1.8-7.7) 02/02/23 04:39 Lymph # (Auto) 0.8 10^3/uL (0.8-4.8) 02/02/23 04:39 [facility] [place] # (Auto) 0.8 10^3/uL (0.2-0.9) 02/02/23 04:39 Eos # (Auto) 0.0 10^3/uL (0.0-0.8) 02/02/23 04:39 Baso # (Auto) 0.0 10^3/uL (0.0-0.1) 02/02/23 04:39 Nucleated RBC % (auto) 0 % 02/02/23 04:39 Nucleated RBCs # 0.0 /100WBC 02/02/23 04:39 PT 16.50 SECONDS (12.1-14.9) H 02/02/23 04:39 INR 1.28 (0.8-1.2) H 02/02/23 04:39 APTT 25.2 SECONDS (23.9-36.7) 02/02/23 04:39 Specimen Type Arterial 02/01/23 10:49 Sample Site Radial, left 02/01/23 10:49 ABG pH 7.47 (7.35-7.45) H 02/01/23 10:49 ABG pCO2 26.6 mmHg (35-45) L 02/01/23 10:49 ABG pO2 83.6 mmHg (80.0-100.0) 02/01/23 10:49 ABG HCO3 19.2 mmol/L (22-26) L 02/01/23 10:49 ABG O2 Saturation 96.4 02/01/23 10:49 ABG Base Excess -3.1 mmol/L (-2.0-2.0) L 02/01/23 10:49 Bora Test Pos 02/01/23 10:49 A-a O2 Gradient 4.0 mmHg (5-10) L 02/01/23 10:49 Hematocrit 40.8 % (42-52) L 02/01/23 10:49 Hgb O2 Saturation 95.3 % (95-100) 02/01/23 10:49 Carboxyhemoglobin 0.6 %THgb (0.4-20.1) 02/01/23 10:49 Methemoglobin 0.6 % (0.4-1.5) 02/01/23 10:49 Total Hemoglobin 13.3 g/dL (14-18) L 02/01/23 10:49 Sodium 133.0 mmol/L (131-143) 02/01/23 10:49 Potassium 5.9 mmol/L (3.5-5.0) H 02/01/23 10:49 Glucose 229.0 mg/dL (70-115) H 02/01/23 10:49 Ionized Calcium 1.2 mmol/L (1.1-1.4) 02/01/23 10:49 O2 Delivery Device Room air 02/01/23 10:49 FiO2 21.0 % 02/01/23 10:49 Bankruptcy Paralegal ID Pau 02/01/23 10:49 Sodium 138 mmol/L (136-145) 02/02/23 04:39 Potassium 5.0 mmol/L (3.5-5.1) 02/02/23 04:39 Chloride 98 mmol/L (98-107) 02/02/23 04:39 Carbon Dioxide 19 mmol/L (22-29) L 02/02/23 04:39 Anion Gap 26.0 (5-19) H 02/02/23 04:39 BUN 64 mg/dL (8-23) H 02/02/23 04:39 Creatinine 7.0 mg/dL (0.7-1.2) H* 02/02/23 04:39 GFR Calculation Not Reportable 02/02/23 04:39 Glucose 100 mg/dL (65-115) 02/02/23 04:39 POC Glucose 174 mg/dL (70-110) H 02/02/23 06:38 Estimat Average Glucose 134 02/02/23 04:39 Hemoglobin A1c 6.3 % (4.0-6.0) H 02/02/23 04:39 Calculated Osmolality 304 mOsm/kg (285-295) H 02/02/23 04:39 Lactic Acid 2.1 mmol/L (0.5-2.2) 02/01/23 11:10 Lactic Acid (Sepsis) 2.2 mmol/L (0.5-2.2) 02/01/23 13:30 Calcium 9.6 mg/dL (8.5-10.5) 02/02/23 04:39 Phosphorus 4.8 mg/dL (2.5-4.5) H 02/02/23 04:39 Magnesium 2.6 mg/dL (1.7-2.3) H 02/02/23 04:39 Total Bilirubin 0.6 mg/dL (0.15-1.2) 02/01/23 10:54 AST 19 U/L (0-40) 02/01/23 10:54 ALT 22 U/L (0-41) 02/01/23 10:54 Alkaline Phosphatase 66 U/L (40-130) 02/01/23 10:54 Total Protein 6.2 g/dL (6.6-8.7) L 02/01/23 10:54 Albumin 3.8 g/dL (3.5-5.2) 02/01/23 10:54 Globulin 2.4 g/dL (1.3-4.6) 02/01/23 10:54 Triglycerides 134 mg/dL (0-150) 02/02/23 04:39 Cholesterol 152 mg/dL (0-200) 02/02/23 04:39 LDL Cholesterol, Calc 87 mg/dL (50-129) 02/02/23 04:39 HDL Cholesterol 38 mg/dL (60-100) L 02/02/23 04:39 LDL/HDL Ratio 2.29 RATIO (0.00-3.22) 02/02/23 04:39 Cholesterol/HDL Ratio 4.00 mg/dL (1.0-5.00) 02/02/23 04:39 Procalcitonin 0.17 ng/mL (0-0.5) 02/02/23 04:39 TSH 2.52 uIU/mL (0.27-4.20) 02/02/23 04:39 Vitals Last Vital Signs Temp 98.4 F 02/02/23 07:51 Pulse 63 02/02/23 07:51 Resp 17 02/02/23 07:51 BP 168/85 02/02/23 07:51 Pulse Ox 96 02/02/23 07:51 O2 Del Method Room Air 02/02/23 03:50 Discharge Plan Discharge Patient Disposition: Home Condition: Stable Prescriptions: Continued hydralazine 50 mg tablet 50 mg PO TID furosemide 40 mg tablet 40 mg PO QAM sevelamer HCl 800 mg tablet 2,400 mg PO TID Lantus U-100 Insulin 100 unit/mL solution 20 unit SUBCUT BEDTIME aspirin 81 mg Tablet,Delayed Release (Dr/Ec) 81 mg PO QAM cholecalciferol (vitamin D3) [Vitamin D3] 125 mcg (5,000 unit) Tablet 125 mcg PO BEDTIME spironolactone 25 mg tablet 25 mg PO BID doxazosin 8 mg tablet 4 mg PO BID metoprolol tartrate 100 mg tablet 50 mg PO BID clonidine HCl 0.3 mg Tablet 0.3 mg PO BEDTIME PRN (Reason: Blood Pressure) simvastatin 80 mg tablet 40 mg PO BEDTIME nitroglycerin [Nitrostat] 0.4 mg Tablet, Sublingual 0.4 mg SUBLINGUAL Q5M PRN (Reason: Chest Pain) Rx Instructions: do not exceed 3 doses per episode losartan 100 mg tablet 100 mg PO QPM RenaPlex-D 800 mcg-12.5 mg -2,000 unit tablet 1 tab PO DAILY Rx Instructions: after dialysis pregabalin [Lyrica] 25 mg capsule 25 mg PO BID PRN (Reason: Pain) methocarbamol 750 mg tablet 750 mg PO Q8H PRN (Reason: Muscle spasms and pain) Qty: 20 0RF fluticasone propionate 50 mcg/actuation [employer],Suspension 1 spray INTRANASAL DAILY Rx Instructions: administer into each nostril Pepcid 40 mg Tablet 40 mg PO QPM famotidine 40 mg Tablet 40 mg PO DAILY Discontinued azithromycin [Zithromax Z-Reynaldo] 250 mg tablet 250 mg PO DAILY 6 Days Qty: 6 0RF Rx Instructions: start on day 2 of therapy Discharge Orders: Discharge Order (Routine); Ordered 02/02/23 Ordered By: Peng Aguirre Referrals: Elias Conteh MD [Primary Care Provider] - Patient Instructions: Hyperkalemia (GEN), Peritoneal Dialysis (GEN), Opioid Safety Discharge Attestations Time Spent in Discharge Care*: greater than 30 min Status at Discharge: Cognitive status at discharge: cognitively intact, Behavioral status at discharge: cooperative, Quality Metrics Clinical Quality Measures [ No reported AMI, CVA or VTE this stay] Coding Level of Care Code Acute Code for Chg Fwd Diagnoses Acute hyperkalemia E87.5 ESRD (end stage renal disease) N18.6 Pleural effusion, right J90 Hypertension I10 GERD (gastroesophageal reflux disease) K21.9 Diabetes E11.9 Congestive heart failure I50.9 CVA (cerebral vascular accident) I63.9 Weight loss R63.4
[2023-02-02 11:10] VITALS: BP 158/75; PULSE 81; TEMP 36.9; O2SAT 97
[2023-02-02 12:23] VITALS: BP 158/75; PULSE 81; TEMP 36.9; O2SAT 97
== END 2023-02-02 11:45 | disposition home or self-care (01) ==
LOC: ER 15:00 → MEDSURG 15:05
PROVIDERS: Hospitalist; Admitting Provider Hospitalist; Emergency Provider Family Medicine; PCP Family Medicine; Visit Provider Internal Medicine
DX: I13.2 Hypertensive heart and chronic kidney disease with heart failure and with stage 5 chronic kidney disease, or end stage renal disease (principal); N18.6 End stage renal disease; E11.22 Type 2 diabetes mellitus with diabetic chronic kidney disease; I45.2 Bifascicular block; I50.32 Chronic diastolic (congestive) heart failure; Z99.2 Dependence on renal dialysis; Z79.4 Long term (current) use of insulin; I25.10 Atherosclerotic heart disease of native coronary artery without angina pectoris; E78.5 Hyperlipidemia, unspecified; E11.42 Type 2 diabetes mellitus with diabetic polyneuropathy; Z95.1 Presence of aortocoronary bypass graft; Z79.82 Long term (current) use of aspirin; J90 Pleural effusion, not elsewhere classified; R63.4 Abnormal weight loss
CPT/HCPCS: 12345; 36415; 36416; 36600; 71045; 80048; 80051; 80053; 80061; 82330; 82805; 82962; 83036; 83605; 83735; 84100; 84145; 84443; 85025; 85610; 85730; 93005; 96361; 96372; 96374; 96375; 99285; 99291; G0378; J1644; J1815; J3490; J7030

== ENCOUNTER 2023-03-28 17:30 | Emergency (ER) | payer MEDICARE, OTHER, SELFPAY ==
[2023-03-28 17:46] VITALS: BP 119/75; PULSE 77; RESP 18; TEMP 36.6; O2SAT 95
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
[2023-03-28 18:08] LABS: Basophils % 0.3 %; Eosinophils # 0.1 10^3/uL (0.0-0.8); Eosinophils % 2.3 %; Hematocrit 33.1 % (42.0-52.0); Lymphocytes # 0.6 10^3/uL (0.8-4.8); Lymphocytes % 15.2 %; Mean Corpuscular HGB Conc 33.2 g/dL (30.0-36.0); Mean Corpuscular Hemoglobin 31.2 pg (28.0-34.0); Mean Corpuscular Volume 93.8 fl (80-94); Monocytes # 0.3 10^3/uL (0.2-0.9); Monocytes % 8.4 %; Neutrophils % 73.3 %; Nucleated Red Blood Cells % 0 %; Platelet Count 172 10^3/cmm (130-400); Red Blood Count 3.53 10^6/uL (4.1-5.3); Red Cell Distribution Width 13.3 % (12.1-15.1)
[2023-03-28 18:13] VITALS: BP 135/56; PULSE 75; O2SAT 98
[2023-03-28 18:18] LABS: INR 1.13 (0.8-1.2)
[2023-03-28 18:30] LABS: Alanine Aminotransferase 17 U/L (0-41); Albumin Level 3.2 g/dL (3.5-5.2); Alkaline Phosphatase 51 U/L (40-130); Anion Gap 17.4 (5-19); Aspartate Amino Transferase 24 U/L (0-40); Blood Urea Nitrogen 63 mg/dL (8-23); Calcium 8.8 mg/dL (8.5-10.5); Carbon Dioxide 21 mmol/L (22-29); Chloride 105 mmol/L (98-107); Globulin 2.2 g/dL (1.3-4.6); Glucose 225 mg/dL (65-115); Osmolality Calculated 311 mOsm/kg (285-295); Potassium 5.4 mmol/L (3.5-5.1); Sodium 138 mmol/L (136-145); Total Bilirubin 0.2 mg/dL (0.15-1.2); Total Protein 5.4 g/dL (6.6-8.7)
[2023-03-28 18:56] VITALS: BP 133/57; PULSE 72; O2SAT 98
--- NOTE | 2023-03-29 10:19 | DCPLANNER ---
Addendum entered by Emperatriz Bolaños 04/01/23 15:05: aviation project manager received the following message from the general surgery clinic regarding follow up appointment: 3rd attempt at trying to reach the patient with no luck. Mailed patient a letter letting him know that we have been trying to reach him and to contact us to a schedule an apt. On 03/31/23 @ 11:00 James Lawton Wrote To General Surgery Front Off Called pt full 03/31/23 On 03/30/23 @ 13:33 James Lawton Wrote To General Surgery Front Off Called patient and isabelle a 03/30/23 Addendum entered by Emperatriz Bolaños 03/31/23 13:22: aviation project manager received the following message from the general surgery clinic regarding follow up appointment: Called pt full 03/31/23 On 03/30/23 @ 13:33 James Lawton Wrote To General Surgery Front Off Called patient and lefft a 03/30/23 Original Note: aviation project manager had message to schedule a follow up appointment for patient with general surgery. aviation project manager sent patients information to the front office staff at general surgery. Patients information will be printed and reviewed. Clinic will call patient with appointment information.
== END 2023-03-28 18:59 | disposition home or self-care (01) ==
PROVIDERS: Emergency Provider Emergency Medicine; PCP Family Medicine
DX: K92.1 Melena (principal)
CPT/HCPCS: 80053; 85025; 85610; 86850; 86900; 99283

== ENCOUNTER → 2023-05-03 09:32 | Outpatient (BNVA) | payer MEDICARE, OTHER, SELFPAY | PROVIDERS: PCP Family Medicine; Referring Provider Family Medicine; Visit Provider Surgery | DX: Z12.11 Encounter for screening for malignant neoplasm of colon (principal) | CPT/HCPCS: 99024; 99203 ==

== ENCOUNTER 2023-06-18 07:12 | Day surgery (SDC) | payer MEDICARE, OTHER, SELFPAY ==
--- OUTSIDE RECORDS SUMMARY | 2023-06-18 07:14 | XMS_ITS ---
Author Name Lisa Giovanna Address [address] [place] [id number] Phone [phone] Organization [facility] e, NA DOCUMENT DISCLAIMER Multiple document versions may exist, please be sure you review the latest version. The information in the [facility] Progress Note Document represents a providers documented clinical note containing certain health and medical information. It may not contain the complete medical history for the patient and should be independently verified. The represented time in the document is Eastern Time PROVIDER ROUNDING NOTE PD Patient:Jess?Trudy,?1950,?72y,?M Dialysis?Location[facility] Attending?Mechanical Integrity Engineer:?Afshin Service?Date:?06/02/2023 Service?Provider:?Giovanna?Lisa,? I?met?face?to?face?with?the?patient?today. OVERVIEW The?patient?presented?with?ESRD Primary?cause?of?renal?failure:?Type?2?diabetes?mellitus&#16 0;with?diabetic?chronic?kidney?disease Comments:?+?dementia?-?this?is?affecting?care.??has ??making?this?a?bigger?issue.? Medications?and?labs?reviewed. HOME?MEDICATIONS Home?Medications:? ??sodium?bicarbonate?650?mg,?1?tablet?twice?a?day ??spironolactone?25?mg,?by?mouth,?Take?1?tablet?twice?a?day?as?directed ??isosorbide?mononitrate?30?mg,?by?mouth,?Take?1?t ablet?once?a?day?This?is?long?acting ??pantoprazole?40?mg,?by?mouth,?Take?1?tablet?once?a?day ??Cozaar?(losartan)?100?mg,?by?mouth,?Take?1?tablet?every?evening?SILVER?TEAM ??Lantus?U-100?Insulin?(insulin?glargine)?100?unit/mL,? subcutaneously,?Inject?10?unit?at?bedtime?as?directed?N18.6& #160;E11.22?insulin?dependent?DM ??Renvela?(sevelamer?carbonate)?800?mg,?by?mouth,?Take& #160;3?tablet?three?times?a?day?with?meals ??simvastatin?40?mg,?by?mouth,?Take?1?tablet?every?evening ??metoprolol?succinate?50?mg,?by?mouth,?Take?1?tablet?twice?a?day ??Aspirin?Childrens?(aspirin)?81?mg,?by?mouth,?Take 1?tablet?once?a?day ??doxazosin?8?mg,?by?mouth,?Take?1/2?tablet?twice a?day?as?directed ??Lyrica?(pregabalin)?25?mg,?by?mouth,?Take?1?caps ule?twice?a?day?as?needed?for?pain ??furosemide?40?mg,?by?mouth,?Take?1?tablet?once a?day ??RenaPlex-D?(vit?b,q-iw-kdne-selen-vit?d3-e)?800?mcg-12.5?m g-2,000?unit,?by?mouth,?Take?1?tablet?once?a?day?as?directed ??Pepcid?(famotidine)?20?mg,?by?mouth,?Take?1?tabl et?once?a?day?as?needed?Take?daily?as?needed?if&#1 60;having?an?episode?of?pain?around?a?meal ??fluticasone?propionate?50?mcg/actuation,?into?both?nostril s,?[place]?1?spray?once?a?day?as?needed?PRN ??clonidine?HCl?(clonidine?hcl)?0.3?mg,?by?mouth,? Take?1?tablet?as?needed?PRN-for?blood?pressures?over?160?systolic Allergies:? ??duloxetine,?trazodone LAST?HOSPITALIZATION Discharge?Diagnosis:?J90?Pleural?effusion,?not?elsewhere?classified E87.5?Hyperkalemia Admission?Date?02/01/23 Discharge?Date?02/02/23 VITALS?ASSESSMENT Vitals?measured?in-clinic. BP?Sit ??05/21/2023:?156/77 ??04/27/2023:?146/80 ??04/21/2023:?161/86 Weight?(kg) ??05/21/2023:?78.7 ??04/27/2023:?77 ??04/21/2023:?72.6 Temp ??05/21/2023:?97.3 Respirations ??05/21/2023:?16 Pulse ??05/21/2023:?69 TREATMENT?ASSESSMENT Blood?pressure?controlled.?No?changes?indicated. FLUID?ASSESSMENT Fluid?status?acceptable.?Weight?gain?acceptable.?No?changes?indicated. DIALYSIS?PRESCRIPTION ??CAPD?7x?Week?Start?date:?05/06/23 ??Day?Fill:?1999 ??Exchanges:?1 ??EDW:?77 ??Night?Fill:? ??Min?Dwell:?9:20 ??Rx?updated?on:?05/06/2023 ADEQUACY?ASSESSMENT Adequacy?target?not?met.?Prescription?compliance?acceptable.?Pres cription?change?discussed?with?staff?and?patient.? PD?Kt/V,?Total ??05/27/2023:?1.46 ??03/30/2023:?1.87 ??01/20/2023:?2.15 ACCESS?ASSESSMENT ??Access?Type:?PDCatheter ??Access?SubType:?Other ??Access?Status:?Active?(In?Use)?-?03/15/2019 ??Access?Location:?Left?Upper?Quadrant ??Placed:?03/14/2019 Access?perfect.?Exit?site?looks?clean.?Tunnel?tract?without& #160;sign?of?infection.?Effluent?clear. ANEMIA?ASSESSMENT HGB?at?goal.?Iron?parameters?acceptable.?No?changes?indicated.? HGB,?TSAT ??05/21/2023:?11.5,?29.0 ??04/21/2023:?12.5,?33.0 ??03/30/2023:?11.8,?46.0 ?? Ferritin ??05/21/2023:?903.0 ??02/18/2023:?1222.0 ??11/17/2022:?1571.0 Mircera,?Sub?Q?(mcg) ??05/21/2023:?30 ??04/21/2023:?30 ??03/09/2023:?30 BMM?ASSESSMENT Comments:?I?hope?that?with?increase?in?PD?RX?we?can?get?better?phos?control? PTH?controlled.?Calcium?controlled.?Phosphorus?elevated.?Diet?rev iewed?with?patient.?Referred?to?dietitian.? Phosphorus,?Calcium ??05/21/2023:?6.3,?8.5 ??05/07/2023:?6.6,?- ??04/21/2023:?5.5,?8.9 ?? PTH,?Intact ??05/21/2023:?418.0 ??02/18/2023:?467.0 ??11/17/2022:?185.0 NUTRITION?ASSESSMENT Potassium?controlled.?Albumin?below?goal.?Diet?reviewed?with&#160 ;patient.?Referred?to?dietitian.? Albumin,?Potassium ??05/21/2023:?3.0,?5.2 ??05/07/2023:?-,?5.8 ??04/27/2023:?-,?5.2 PHYSICAL?EXAM Exam?Performed.?Vital?Signs?Reviewed.?Lungs?-?Clear.?CV&#160 ;-?Blood?pressure?noted.?EXT?-?No?edema. DIAGNOSIS Chief?Complaint:?N18.6?End?stage?renal?disease Patient?is?stable.?Patient?discussed?with?nursing. Patient?data?updated?06/02/2023?at?2:23?PM Signed?By:?Lisa,?Giovanna,???on?06/02/2023?2:33:35?PM END OF DOCUMENT
[2023-06-18 07:18] VITALS: BP 185/87; PULSE 72; RESP 19; TEMP 36.5; O2SAT 97
[2023-06-18 07:25] VITALS: BMI 21.5
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
[2023-06-18] MEDS: sodium chloride 0.9% 1,000 ML 30 ML IV (07:48)
[2023-06-18 08:42] LABS: Blood Urea Nitrogen 55 mg/dL (8-23); Calcium 8.9 mg/dL (8.5-10.5); Carbon Dioxide 23 mmol/L (22-29); Chloride 102 mmol/L (98-107); Glucose 73 mg/dL (65-115); Osmolality Calculated 296 mOsm/kg (285-295); Sodium 136 mmol/L (136-145)
[2023-06-18 08:43] LABS: Anion Gap 15.2 (5-19); Potassium 4.2 mmol/L (3.5-5.1)
[2023-06-18 09:22] VITALS: BP 132/56; PULSE 62; RESP 14; TEMP 36.8; O2SAT 100
[2023-06-18 09:37] VITALS: BP 146/71; PULSE 67; RESP 16; O2SAT 98
[2023-06-18 09:53] VITALS: BP 158/81; PULSE 70; RESP 18; O2SAT 98
--- NOTE | 2023-06-18 10:15 | ANE.PACU2 ---
Inpatient post-anesthesia follow up: Airway intact: Yes Vital signs: Temperature 98.2 F Pulse Rate 70 Respiratory Rate 18 Blood Pressure 158/81 Pulse Oximetry 98 Oxygen Delivery Me thod Room Air Oxygen Flow Rate Fraction of Inspir ed Oxygen Hydration adequate: Yes Nausea and vomiting: No Pain level: 1 Mental status: Baseline
[2023-06-21 15:25] LABS: Glucose Point of Care 67 mg/dL (70-110)
[2023-06-21 15:25] LABS: Glucose Point of Care 94 mg/dL (70-110)
== END 2023-06-18 10:17 | disposition home or self-care (01) ==
PROVIDERS: Anesthesiology; PCP Family Medicine; Visit Provider Surgery
PROC: 0DJD8ZZ Inspection of Lower Intestinal Tract, Via Natural or Artificial Opening Endoscopic (ICD-10-PCS; CPT 45378; principal; 2023-06-18 08:35)
DX: Z12.11 Encounter for screening for malignant neoplasm of colon (principal); Z79.82 Long term (current) use of aspirin; I25.10 Atherosclerotic heart disease of native coronary artery without angina pectoris; J44.9 Chronic obstructive pulmonary disease, unspecified; Z86.73 Personal history of transient ischemic attack (TIA), and cerebral infarction without residual deficits; E78.5 Hyperlipidemia, unspecified; E11.22 Type 2 diabetes mellitus with diabetic chronic kidney disease; I12.9 Hypertensive chronic kidney disease with stage 1 through stage 4 chronic kidney disease, or unspecified chronic kidney disease; N18.6 End stage renal disease; Z99.2 Dependence on renal dialysis
CPT/HCPCS: 36415; 36416; 80048; 82962; G0121; J2704; J7030

== ENCOUNTER 2023-07-07 12:16 | Inpatient (IN) | payer OTHER, SELFPAY ==
[2023-07-07] VITALS (8 sets, daily range): BP systolic 139–150; BP diastolic 72–99; PULSE 100–109; RESP 17–27; TEMP 36.8; O2SAT 93–96; BMI 24.3; BMI 22.9
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
--- NOTE | 2023-07-07 12:54 | XRR_ITS ---
PROCEDURE INFORMATION: Exam: XR Chest Exam date and time: 07/07/2023 1:06 PM Age: 72 years old Clinical indication: Dyspnea; Prior surgery; Surgery date: 6+ months; Surgery type: RT lung dialysis cath TECHNIQUE: Imaging protocol: Radiologic exam of the chest. Views: 1 view. COMPARISON: CR XR chest 1V portable [id number] 02/01/2023 10:44 AM FINDINGS: Increasing vascular and interstitial prominence. Previously seen right sided round density thought to be within a fissure is again seen. There is some adjacent infiltrate and a small amount of pleural fluid. Calcified pleural plaque is again seen on the right near this density. Lung bay are otherwise clear. Stable cardiomediastinal structures. Sternal sutures are again seen. XR/XR chest 1V portable [id number] IMPRESSION: Increasing vascular and interstitial prominence. Otherwise unchanged nonacute findings.
[2023-07-07 13:08] LABS: Basophils % 0.2 %; Hematocrit 36.8 % (37-53); Lymphocytes # 0.3 10^3/uL (0.8-4.8); Lymphocytes % 3.1 %; Mean Corpuscular HGB Conc 33.7 g/dL (30-55); Mean Corpuscular Hemoglobin 31.2 pg (27-33); Mean Corpuscular Volume 92.5 fl (82-101); Mean Platelet Volume 10.5 fL (7.4-10.4); Monocytes # 0.4 10^3/uL (0.2-0.9); Neutrophils # 9.58 10^3/uL (1.8-7.7); Neutrophils % 92.2 %; Nucleated Red Blood Cells % 0 %; Platelet Count 212 10^3/cmm (157-399); Red Blood Count 3.98 10^6/uL (3.85-5.65); Red Cell Distribution Width 13.7 % (12.1-15.1); White Blood Count 10.39 10^3/uL (3.29-11.43)
--- NOTE | 2023-07-07 13:09 | ECG_ITS ---
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 Measurements Intervals [place] Rate: 99 P: 54 CO: 166 QRS: -78 QRSD: 170 T: 108 QT: 380 QTc: 488 Interpretive Statements SINUS RHYTHM WITH SINUS ARRHYTHMIA RIGHT BUNDLE BRANCH BLOCK [120+ ms QRS DURATION, UPRIGHT V1, 40+ ms S IN I/aVL/V4/V5/V6] Anterior leads ST changes suggestive of ischemia Compared to ECG 02/01/2023 10:33:42 No significant change Electronically Signed On 07-08-2023 12:54:34 MANAGER CODING by Colton Albright M.D. [id number]
[2023-07-07 13:17] LABS: INR 1.19 (0.8-1.2)
[2023-07-07 13:19] LABS: D Dimer 1.37 ug/mLFEU (0-0.59)
[2023-07-07 13:39] LABS: Troponin(5th) Baseline 269 ng/L (0-15)
[2023-07-07 13:42] LABS: Alanine Aminotransferase 28 U/L (0-41); Albumin Level 3.7 g/dL (3.5-5.2); Alkaline Phosphatase 72 U/L (40-130); Blood Urea Nitrogen 67 mg/dL (8-23); Calcium 9.7 mg/dL (8.5-10.5); Carbon Dioxide 17 mmol/L (22-29); Chloride 93 mmol/L (98-107); Globulin 2.2 g/dL (1.3-4.6); Glucose 207 mg/dL (65-115); Osmolality Calculated 297 mOsm/kg (285-295); Sodium 131 mmol/L (136-145); Total Bilirubin 0.6 mg/dL (0.15-1.2); Total Protein 5.9 g/dL (6.6-8.7)
[2023-07-07 13:49] LABS: Aspartate Amino Transferase 46 U/L (0-40)
[2023-07-07 14:07] LABS: NT Pro B Type Natriuretic Pept > 70000 pg/mL (0-125)
--- NOTE | 2023-07-07 14:55 | ECG_ITS ---
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 Measurements Intervals [place] Rate: 103 P: 112 ND: 198 QRS: -81 QRSD: 163 T: 101 QT: 384 QTc: 504 Interpretive Statements SINUS TACHYCARDIA WITH OCCASIONAL SUPRAVENTRICULAR PREMATURE COMPLEXES RIGHT BUNDLE BRANCH BLOCK [120+ ms QRS DURATION, UPRIGHT V1, 40+ ms S IN I/aVL/V4/V5/V6] LEFT ANTERIOR FASCICULAR BLOCK [QRS AXIS <= -45, QR IN I, RS IN II] MODERATE T-WAVE ABNORMALITY, CONSIDER LATERAL ISCHEMIA [-0.1+ mV T-WAVE IN I/aVL/V5/V6] Compared to ECG 07/07/2023 13:09:05 No significant change Electronically Signed On 07-08-2023 13:32:30 SALT WASHER by Colton Albright M.D. [email or web address]
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
[2023-07-07] MEDS: iohexol 350 mg/mL 500 mL Btl (per mL) IV (16:32)
[2023-07-07] MEDS: calcium gluconate 0.1 gm/mL 10% SDV 10mL 1 GM IVP (16:47)
[2023-07-07] MEDS: FUROsemide 100 MG in sodium chloride 0.9% 40 ML 10 MG IV (16:52)
[2023-07-07] MEDS: albuterol 2.5 mg/3 mL Neb 10 MG NEBULIZER (17:13)
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
[2023-07-07 18:56] LABS: Ketone (Acetest) Serum Negative (Negative)
[2023-07-07 19:25] LABS: Troponin 5 6HR 288.5 ng/L (0-15); Troponin 5 6HR Delta 19.5 ng/L (0-12)
[2023-07-07] MEDS: heparin 5,000 unit/mL INJ 1 mL 5000 UNIT SUBCUT (21:00)
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
[2023-07-07 22:11] LABS: Glucose Point of Care 251 mg/dL (70-110)
[2023-07-07] MEDS: insulin lispro 100 unit/1 mL SUBCUT (22:31)
[2023-07-07] MEDS: FUROsemide 10 mg/mL SDV 10mL 80 MG IVP (22:31)
[2023-07-07] MEDS: nitroglycerin 0.4 mg sublingual Tablet SUBLINGUAL (22:45)
[2023-07-07] MEDS: ondansetron 2 mg/ML SDV 2 mL 4 MG IVP (22:45)
--- NOTE | 2023-07-07 22:52 | ECG_ITS ---
[facility] Test Date: 2023-07-07 Pat Name: Sherwin Yates Department: Room: 106 Gender: Male Asset Protection Specialist: : [id number] Requested By: Veto Avila Order Number: [id number] Reading MD: Colton Albright M.D. Measurements Intervals [place] Rate: 108 P: 71 WV: 172 QRS: -84 QRSD: 173 T: 107 QT: 375 QTc: 504 Interpretive Statements SINUS TACHYCARDIA RIGHT BUNDLE BRANCH BLOCK [120+ ms QRS DURATION, UPRIGHT V1, 40+ ms S IN I/aVL/V4/V5/V6] LEFT ANTERIOR FASCICULAR BLOCK [QRS AXIS <= -45, QR IN I, RS IN II] ST DEVIATION AND MODERATE T-WAVE ABNORMALITY, CONSIDER LATERAL ISCHEMIA [-0.1+ mV T-WAVE IN I/aVL/V5/V6] Compared to ECG 07/07/2023 14:53:09 No significant changes Electronically Signed On 07-08-2023 13:30:20 QUALITY CONTROLLER by Colton Albright M.D. [email or web address]
[2023-07-07] MEDS: morphine 4 mg/mL SDV 1 mL 2 MG IVP (23:09)
[2023-07-08] VITALS (14 sets, daily range): BP systolic 120–163; BP diastolic 72–93; PULSE 89–153; RESP 17–26; TEMP 36.4–37.1; O2SAT 92–96; BMI 23.5
--- NOTE | 2023-07-08 01:18 | PC.NURSE ---
Dr Trujillo was made aware at 01:00 that there was no gentamicin available due to no pharmacy access, gave verbal telephone order for neosporin antibiotic topical ointment.
[2023-07-08 04:06] LABS: Lymphocytes # 0.3 10^3/uL (0.8-4.8); Lymphocytes % 3.5 %; Mean Corpuscular Hemoglobin 31.4 pg (27-33); Mean Corpuscular Volume 95.4 fl (82-101); Mean Platelet Volume 10.6 fL (7.4-10.4); Monocytes # 0.5 10^3/uL (0.2-0.9); Monocytes % 5.6 %; Neutrophils # 7.74 10^3/uL (1.8-7.7); Neutrophils % 90.4 %; Nucleated Red Blood Cells % 0 %; Platelet Count 211 10^3/cmm (157-399); Red Blood Count 3.88 10^6/uL (3.85-5.65); Red Cell Distribution Width 13.9 % (12.1-15.1); White Blood Count 8.56 10^3/uL (3.29-11.43)
[2023-07-08 04:27] LABS: Alanine Aminotransferase 28 U/L (0-41); Albumin Level 3.5 g/dL (3.5-5.2); Alkaline Phosphatase 69 U/L (40-130); Anion Gap 23.6 (5-19); Aspartate Amino Transferase 47 U/L (0-40); Blood Urea Nitrogen 73 mg/dL (8-23); Calcium 10.1 mg/dL (8.5-10.5); Carbon Dioxide 20 mmol/L (22-29); Chloride 93 mmol/L (98-107); Globulin 2.7 g/dL (1.3-4.6); Glucose 252 mg/dL (65-115); Magnesium 2.3 mg/dL (1.7-2.3); Osmolality Calculated 302 mOsm/kg (285-295); Potassium 5.6 mmol/L (3.5-5.1); Sodium 131 mmol/L (136-145); Total Bilirubin 0.5 mg/dL (0.15-1.2); Total Protein 6.2 g/dL (6.6-8.7)
[2023-07-08 04:32] LABS: Phosphorus 6.6 mg/dL (2.5-4.5)
[2023-07-08 04:39] LABS: Add Urine Culture? No; Bacteria Urine TRACE /hpf; Bilirubin Urine Neg (Negative); Blood Urine Neg (Negative); Glucose Urine UA Norm (Normal); Ketones Urine Negative (Negative); Leukocyte Esterase Urine Negative (Negative); Nitrate Urine Negative (Negative); Protein Urine Trace (Negative); RBC Urine 0-4 /hpf (0-2); Squamous Epithelial Cell Urine 0-4 /hpf (0-5); Urine Appearance Clear (CLEAR); Urine Color Yellow (Yellow); Urobilinogen Urine Norm (Negative); WBC Urine 0-4 /hpf (0-5); pH Urine 5 (5-7)
--- NOTE | 2023-07-08 04:49 | PC.NURSE ---
patient bladder scan showed 400 ml of urine, patient had not urinated by 03;00. notiflea order for salazar was put in. Patient was told about salazar but wanted to try to urinate on his own. patient urinated 350 mL at 0330. UA was sent to lab. Salazar order is still in in case it is needed.
[2023-07-08] MEDS: aspirin 81 mg EC Tablet PO (06:16)
[2023-07-08 06:43] LABS: Glucose Point of Care 317 mg/dL (70-110)
--- NOTE | 2023-07-08 07:41 | PM.PN ---
Subjective Subjective: only had 1 PD exchange last night, unclear if any UF occured. Second exchange 2.5%, only 100 m UF. will dwell 4.25%, then return to 2.5% Q4h states dyspnea improved Vitals/I&O/Wt Last Vital Signs Temp 98.8 F 07/08/23 04:00 Pulse 109 H 07/08/23 06:00 Resp 21 H 07/08/23 04:00 BP 155/75 07/08/23 04:00 Pulse Ox 96 07/08/23 04:00 O2 Del Method Nasal Cannula 07/08/23 04:00 O2 Flow Rate 2 07/08/23 04:00 FiO2 2 07/07/23 23:15 07/07/23 07/08/23 07/08/23 22:59 06:59 14:59 Intake Total 170 / 170 120 / 290 Output Total 350 / 350 Balance 170 / 170 -230 / -60 Weight last 48 hrs Weight 72.575 kg Weight 72.575 kg Weight 77.111 kg Data 07/08/23 03:40 07/08/23 13:52 Other Labs: phos 6.6 Other data: seen via telemedicine with assistance of RN at bedside A&P Assessment and plan (1) ESRD (end stage renal disease): Plan 1. ESRD on peritoneal dialysis 2. volume overload, CHF, possible uremia 3. hyperkalemia, metabolic acidosis, improved 4. Hyperglycemia, sliding scale regular insulin. Maintain BS < 200 to assist with UF via PD 5. Hyperphosphatemia, begin sevelemar (he was taking as outpatient) Rec: 2.5% PD 2500 mlsolution Q4h. change furosemide infusion to intermittent furosemide 80 mg IV Q12h, fluid restriction, renal diet Attestations Medical Necessity Statement*: see above Time Spent in Patient Care: Greater than 35 minutes Coding Level of Care Code Acute Code for Chg Fwd Diagnoses ESRD (end stage renal disease) N18.6
[2023-07-08] MEDS: heparin 5,000 unit/mL INJ 1 mL 5000 UNIT SUBCUT ×2 (08:21→21:22)
[2023-07-08] MEDS: insulin lispro 100 unit/1 mL SUBCUT ×4 (08:22→21:23)
[2023-07-08] MEDS: pantoprazole DR 40 mg Tablet PO (08:40)
[2023-07-08] MEDS: NIFEdipine ER (24 hr) 30 mg Tablet 60 MG PO (08:40)
[2023-07-08] MEDS: sodium bicarbonate 650 mg Tablet PO ×3 (08:40→21:23)
[2023-07-08] MEDS: Dianeal low Ca w/2.5% dex 2,000 mL Bag 2500 ML INTRAPERIT (09:46)
[2023-07-08] MEDS: FUROsemide 10 mg/mL SDV 10mL 80 MG IVP ×2 (09:48→21:22)
[2023-07-08] MEDS: morphine 4 mg/mL SDV 1 mL 2 MG IVP (10:31)
[2023-07-08 11:32] LABS: Glucose Point of Care 215 mg/dL (70-110)
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
--- NOTE | 2023-07-08 12:45 | ECG_ITS ---
[facility] Test Date: 2023-07-08 Pat Name: Sherwin Yates Department: Room: 106 Gender: Male Director Communications: : 1950 Requested By: Veto Avila Order Number: [id number] Reading MD: Colton Albright M.D. Measurements Intervals [place] Rate: 149 P: 0 TX: 0 QRS: 270 QRSD: 164 T: 89 QT: 320 QTc: 505 Interpretive Statements ATRIAL FIBRILLATION WITH RAPID VENTRICULAR RESPONSE RIGHT AXIS DEVIATION [QRS AXIS > 100] RIGHT BUNDLE BRANCH BLOCK [120+ ms QRS DURATION, UPRIGHT V1, 40+ ms S IN I/aVL/V4/V5/V6] ST DEPRESSION, CONSIDER SUBENDOCARDIAL INJURY [0.1+ mV ST DEPRESSION] Compared to ECG 07/07/2023 22:52:16 Sinus rhythm no changed to atrial fibrillation Electronically Signed On 07-08-2023 13:17:50 [employer]ACE REHABILITATION OFFICER by Colton Albright M.D. [email or web address]
[2023-07-08] MEDS: dilTIAZem 5 mg/mL SDV 5 mL IVP (13:14)
[2023-07-08] MEDS: doxazosin 4 mg Tablet PO (13:15)
[2023-07-08] MEDS: isosorbide mononitrate ER 60 mg Tablet PO (13:15)
[2023-07-08 14:17] LABS: Blood Urea Nitrogen 73 mg/dL (8-23); Calcium 10.3 mg/dL (8.5-10.5); Carbon Dioxide 23 mmol/L (22-29); Chloride 93 mmol/L (98-107); Glucose 69 mg/dL (65-115); Magnesium 2.4 mg/dL (1.7-2.3); Osmolality Calculated 298 mOsm/kg (285-295); Sodium 134 mmol/L (136-145)
--- NOTE | 2023-07-08 14:43 | PC.NURSE ---
Spoke with Dr. Hernandez and she verbally ordered patient to have a red bag instead of a green bag of periteneal dialysis.
[2023-07-08] MEDS: Dianeal low Ca w/4.25% dex 2,000 mL Bag 2000 ML INTRAPERIT (15:28)
--- NOTE | 2023-07-08 16:06 | PM.PN ---
Subjective Subjective: Performing peritoneal dialysis exchange. Denies pain or discomfort. No chest pain. Developed persistent tachycardia, asymptomatic. Vitals/I&O/Wt Last Vital Signs Temp 97.7 F 07/08/23 11:24 Pulse 137 H 07/08/23 15:45 Resp 26 H 07/08/23 15:45 BP 135/88 07/08/23 15:45 Pulse Ox 92 07/08/23 11:24 O2 Del Method Room Air 07/08/23 11:24 O2 Flow Rate 2 07/08/23 09:50 FiO2 2 07/07/23 23:15 07/08/23 07/08/23 07/08/23 06:59 14:59 22:59 Intake Total 120 / 290 2860.5 / 2860.5 Output Total 350 / 350 2600 / 2600 Balance -230 / -60 260.5 / 260.5 Weight last 48 hrs Weight 74.417 kg Weight 74.417 kg Weight 72.575 kg Weight 72.575 kg Weight 77.111 kg Physical Exam Narrative: Accompanied by family. Const: COMMON NORMALS: patient oriented x3 and alert GENERAL APPEARANCE: cooperative ORIENTATION/CONSCIOUSNESS: Yes awake HENMT: COMMON NORMALS: oropharynx normal Neck/C-Spine: COMMON NORMALS: no JVD Resp: COMMON NORMALS: normal respiratory effort and clear to auscultation bilaterally AUSCULTATION: clear to auscultation bilaterally and rales on the right at the base Cardio: COMMON NORMALS: no JVD, regular rhythm, S1 normal heart sound present, S2 normal heart sound present and No murmurs present (Cardio) RHYTHM: regular rhythm HEART SOUNDS: S1 normal heart sound present and S2 normal heart sound present GI: COMMON NORMALS: Normal to inspection, nondistended, normoactive bowel sounds present, Soft to palpation and non-tender PALPATION: Yes Soft to palpation Back/Pelvis: GENERAL BACK: Yes swelling (1+) Extremity: COMMON NORMALS: no joint enlargement Neuro: COMMON NORMALS: patient oriented x3 and moves all extremities SENSORIUM/ORIENTATION: Yes alert Skin: COMMON NORMALS: no rashes or lesions noted GENERAL SKIN EXAM: no rashes or lesions noted Data 07/08/23 03:40 07/08/23 13:52 A&P Assessment and plan (1) Dyspnea: Appreciate nephrology and cardiology consultation. He is started on every 4 hours peritoneal exchanges for CHF exacerbation/fluid overload. He states that recently his urine output has decreased significantly, this may be contributing to his fluid overload. Switched from Lasix drip to intermittent pushes. He otherwise does not appear in COPD exacerbation. CT angiogram chest reviewed, no sign of PE. Discussed with him. Troponin level has been elevated, appreciate cardiology assessment. She has been free of chest pain. Reviewed vitals, CBC, CMP, magnesium, troponin series. UA. (2) Atrial fibrillation with RVR: Developed persistent wide-complex tachycardia 150 bpm. Risk of hemodynamic deterioration, cardiac ischemia, life-threatening arrhythmia, decompensation of congestive heart failure. Did not respond to vagal maneuvers. Discussed with cardiology, twelve-lead EKG obtained. Found to be in atrial fibrillation. He refuses to take metoprolol. Discussed with cardiology, given 5 mg IV Cardizem push, started on Cardizem drip. Stop nifedipine. Risk of hypotension. Monitor blood pressures. (3) Hypoxia: As above. Continue oxygen support, monitor oxygenation. (4) High anion gap metabolic acidosis: Improving with peritoneal dialysis. In the setting of ESRD, recent adjustment in peritoneal dialysis, it appears previously once daily exchanges were inadequate. Suspect may be secondary to ESRD, however, he does have diabetes, will also check urine, serum ketones. (5) Troponin level elevated: Suspect secondary to demand ischemia. Appreciate cardiology assessment. (6) ESRD (end stage renal disease): Reviewed nephrology documentation. PD every 4 hours. He states would not want to start hemodialysis. Hoping peritoneal dialysis regimen can be adjusted to allow adequate dialysis, but understands that in some cases also peritoneal dialysis may not be adequate option for some patients. Nephrology consultation is placed. Plan Hypertension: States his medication has been changed recently, he has been started on nifedipine and no longer takes metoprolol or losartan. Needing Cardizem drip as above. Nifedipine stopped. Mild transaminitis, AST 46: Treat as above. Suspect secondary to congestive heart failure, reassess CMP. ANNE: Previously on CPAP. Currently in between machines. Will request nightly CPAP. COPD: Currently not in exacerbation. Breathing treatments. HTN: Monitor blood pressures, continue nifedipine Diabetes: Accu-Cheks. Sliding scale insulin, CC diet CAD, history of CABG History of CVA Other medical problems. Requested home medications to be confirmed. Attestations Medical Necessity Statement*: Continue admission for assessment management of decompensated CHF, fluid overload with ESRD on peritoneal dialysis. A-fib with RVR. Diagnoses Dyspnea R06.00 Atrial fibrillation with RVR I48.91 Hypoxia R09.02 High anion gap metabolic acidosis E87.29 Troponin level elevated R79.89 ESRD (end stage renal disease) N18.6
[2023-07-08] MEDS: sevelamer 800 mg Tablet PO (16:15)
--- NOTE | 2023-07-08 16:21 | PC.NURSE ---
Peritineal dialysis for 07/08 one green bag given at 0100. Dwelled until 0500. 1750 out one green bag given at 0800. Dwelled until 1200. 2600 out one red bag given at 1600. Dwell until 2029. Night nurse will be notified to dwell at 2030.
[2023-07-08 16:24] LABS: Glucose Point of Care 151 mg/dL (70-110)
[2023-07-08 18:23] LABS: Adenovirus Not Detected (NOT DETECT); Chlamydia Pneumoniae Not Detected (NOT DETECT); Coronavirus 229E,HKU1,NL63,OC4 Not Detected (NOT DETECT); Human Metapneumovirus Not Detected (NOT DETECT); Human Rhinovirus/Enterovirus Not Detected (NOT DETECT); Influenza A Not Detected (NOT DETECT); Influenza A H1 Not Detected (NOT DETECT); Influenza A H1-2009 Not Detected (NOT DETECT); Influenza A H3 Not Detected (NOT DETECT); Influenza B Not Detected (NOT DETECT); Mycoplasma Pneumoniae Not Detected (NOT DETECT); Parainfluenza Virus Type 1 Not Detected (NOT DETECT); Parainfluenza Virus Type 2 Not Detected (NOT DETECT); Parainfluenza Virus Type 3 Not Detected (NOT DETECT); Parainfluenza Virus Type 4 Not Detected (NOT DETECT); Respiratory Syncytial Virus A Not Detected (NOT DETECT); Respiratory Syncytial Virus B Not Detected (NOT DETECT); SARS-COV-2 Not Detected (NOT DETECT)
[2023-07-08 21:01] LABS: Glucose Point of Care 266 mg/dL (70-110)
[2023-07-08] MEDS: dilTIAZem 30 mg Tablet PO (22:48)
[2023-07-09] VITALS (13 sets, daily range): BP systolic 109–125; BP diastolic 59–68; PULSE 94–131; RESP 16–30; TEMP 36.2–36.6; O2SAT 20–96; BMI 23.7
[2023-07-09] MEDS: morphine 4 mg/mL SDV 1 mL 2 MG IVP ×2 (01:53→21:04)
[2023-07-09] MEDS: dilTIAZem 30 mg Tablet PO ×3 (03:34→15:40)
[2023-07-09 04:48] LABS: Basophils % 0.1 %; Eosinophils % 0.1 %; Hematocrit 35.5 % (37-53); Lymphocytes # 0.5 10^3/uL (0.8-4.8); Mean Corpuscular HGB Conc 33.5 g/dL (30-55); Mean Corpuscular Hemoglobin 31.6 pg (27-33); Mean Corpuscular Volume 94.2 fl (82-101); Mean Platelet Volume 10.9 fL (7.4-10.4); Monocytes # 0.8 10^3/uL (0.2-0.9); Monocytes % 8.5 %; Neutrophils # 7.69 10^3/uL (1.8-7.7); Neutrophils % 84.9 %; Nucleated Red Blood Cells % 0 %; Platelet Count 220 10^3/cmm (157-399); Red Blood Count 3.77 10^6/uL (3.85-5.65); Red Cell Distribution Width 13.8 % (12.1-15.1); White Blood Count 9.06 10^3/uL (3.29-11.43)
[2023-07-09 05:10] LABS: Alanine Aminotransferase 36 U/L (0-41); Albumin Level 3.4 g/dL (3.5-5.2); Alkaline Phosphatase 66 U/L (40-130); Anion Gap 22.1 (5-19); Aspartate Amino Transferase 48 U/L (0-40); Blood Urea Nitrogen 69 mg/dL (8-23); Calcium 9.6 mg/dL (8.5-10.5); Carbon Dioxide 23 mmol/L (22-29); Chloride 92 mmol/L (98-107); Globulin 2.5 g/dL (1.3-4.6); Glucose 203 mg/dL (65-115); Osmolality Calculated 300 mOsm/kg (285-295); Potassium 5.1 mmol/L (3.5-5.1); Sodium 132 mmol/L (136-145); Total Bilirubin 0.4 mg/dL (0.15-1.2); Total Protein 5.9 g/dL (6.6-8.7)
--- NOTE | 2023-07-09 05:48 | PC.NURSE ---
peritineal dialysis 07/08-07/09 16:00 bag dwelledtill 20:30- 3100 grams out green bag started @ 21:10, dwelled till 02:00- 2700 grams out green bag started @ 02:50, dwelled till 07:00 will inform day RN to chart grams out
[2023-07-09 06:26] LABS: Glucose Point of Care 332 mg/dL (70-110)
[2023-07-09] MEDS: sevelamer 800 mg Tablet PO ×3 (06:26→16:52)
[2023-07-09] MEDS: aspirin 81 mg EC Tablet PO (06:26)
--- NOTE | 2023-07-09 07:54 | PC.SOCIAL ---
IMM Update pg 2 of IMM updated and reviewed w/ patient. Copy provided and copy dated, initialed and placed in chart.
--- NOTE | 2023-07-09 07:59 | PC.SOCIAL ---
IMM Update pg 2 of IMM updated and reviewed w/ patient. Copy provided and copy dated, initialed and placed in chart.
[2023-07-09] MEDS: FUROsemide 10 mg/mL SDV 10mL 80 MG IVP ×2 (08:32→21:05)
[2023-07-09] MEDS: pantoprazole DR 40 mg Tablet PO (08:33)
[2023-07-09] MEDS: isosorbide mononitrate ER 60 mg Tablet PO (08:33)
[2023-07-09] MEDS: sodium bicarbonate 650 mg Tablet PO ×3 (08:33→21:01)
[2023-07-09] MEDS: heparin 5,000 unit/mL INJ 1 mL 5000 UNIT SUBCUT ×2 (08:33→21:19)
[2023-07-09] MEDS: insulin lispro 100 unit/1 mL SUBCUT ×4 (08:33→21:25)
[2023-07-09] MEDS: doxazosin 4 mg Tablet PO (08:34)
[2023-07-09] MEDS: Dianeal low Ca w/2.5% dex 2,000 mL Bag 2500 ML INTRAPERIT ×5 (08:41→21:01)
--- NOTE | 2023-07-09 08:45 | P.PN_ITS ---
Subjective Subjective: Rapid A fib last night Medications: Reviewed: Yes Vitals/I&O/Wt Last Vital Signs Temp 97.8 F 07/09/23 07:29 Pulse 103 H 07/09/23 08:05 Resp 20 H 07/09/23 08:05 BP 112/65 07/09/23 07:29 Pulse Ox 93 07/09/23 08:05 O2 Del Method Room Air 07/09/23 08:05 O2 Flow Rate 2 07/08/23 22:45 FiO2 2 07/07/23 23:15 07/08/23 07/09/23 07/09/23 22:59 06:59 14:59 Intake Total 867.417 / 3727.917 100 / 3827.917 Output Total 200 / 2800 2500 / 2500 Balance 667.417 / 927.917 100 / 1027.917 -2500 / -2500 Weight last 48 hrs Weight 75.024 kg Weight 74.417 kg Weight 74.417 kg Weight 72.575 kg Weight 72.575 kg Weight 77.111 kg Physical Exam Const: GENERAL APPEARANCE: frail appearing OTHER: awake , alert HEENT no edema 0n room air Data 07/09/23 03:45 07/09/23 03:45 A&P Assessment and plan (1) ESRD (end stage renal disease): Plan 1. ESRD on peritoneal dialysis 2. volume overload, CHF, possible uremia 3. hyperkalemia, metabolic acidosis, improved 4. Hyperglycemia, sliding scale regular insulin. Maintain BS < 200 to assist w ith UF via PD 5. Hyperphosphatemia, begin sevelemar (he was taking as outpatient) Rec: 2.5% PD 2500 mlsolution Q4h, adding one 4.25% bag, continue lasix , fluid restriction, renal diet Attestations Medical Necessity Statement*: per medicine team Coding Level of Care Code Acute Code for Chg Fwd Diagnoses ESRD (end stage renal disease) N18.6
[2023-07-09] MEDS: dilTIAZem 100 MG in sodium chloride 0.9% (add-van) 100 ML 15 MG IV ×2 (10:40→19:51)
[2023-07-09 11:04] LABS: Glucose Point of Care 241 mg/dL (70-110)
--- NOTE | 2023-07-09 14:25 | PM.PN ---
Subjective Subjective: He states that he is trying to manage . Breathing is starting to feel better. No chest pain or pressure. No lightheadedness or presyncopal symptoms. Vitals/I&O/Wt Last Vital Signs Temp 97.9 F 07/09/23 12:00 Pulse 109 H 07/09/23 12:00 Resp 20 H 07/09/23 08:05 BP 114/64 07/09/23 12:00 Pulse Ox 96 07/09/23 12:00 O2 Del Method Room Air 07/09/23 12:00 O2 Flow Rate 2 07/08/23 22:45 FiO2 2 07/07/23 23:15 07/08/23 07/09/23 07/09/23 22:59 06:59 14:59 Intake Total 867.417 / 3727.917 100 / 3827.917 290 / 290 Output Total 200 / 2800 2500 / 2500 Balance 667.417 / 927.917 100 / 1027.917 -2210 / -2210 Weight last 48 hrs Weight 75.024 kg Weight 74.417 kg Weight 74.417 kg Weight 72.575 kg Weight 72.575 kg Physical Exam Const: COMMON NORMALS: patient oriented x3 and alert GENERAL APPEARANCE: cooperative ORIENTATION/CONSCIOUSNESS: Yes awake HENMT: COMMON NORMALS: oropharynx normal Neck/C-Spine: COMMON NORMALS: no JVD Resp: COMMON NORMALS: normal respiratory effort and clear to auscultation bilaterally AUSCULTATION: clear to auscultation bilaterally and rales on the right at the base Cardio: COMMON NORMALS: no JVD, regular rhythm, S1 normal heart sound present, S2 normal heart sound present and No murmurs present (Cardio) RHYTHM: regular rhythm HEART SOUNDS: S1 normal heart sound present and S2 normal heart sound present GI: COMMON NORMALS: Normal to inspection, nondistended, normoactive bowel sounds present, Soft to palpation and non-tender PALPATION: Yes Soft to palpation Back/Pelvis: GENERAL BACK: Yes swelling (1+. Improving.) Extremity: COMMON NORMALS: no joint enlargement Neuro: COMMON NORMALS: patient oriented x3 and moves all extremities SENSORIUM/ORIENTATION: Yes alert Skin: COMMON NORMALS: no rashes or lesions noted GENERAL SKIN EXAM: no rashes or lesions noted Data 07/09/23 03:45 07/09/23 03:45 A&P Assessment and plan (1) Atrial fibrillation with RVR: A-fib with RVR with some improvement. On Cardizem drip. Vitals reviewed, CBC reviewed, potassium reviewed. Will increase oral Cardizem, wean down Cardizem drip. At risk of worsening arrhythmia, risk of hypotension with Cardizem drip. Monitor vitals, monitor on telemetry. (2) Dyspnea: Showing improvement. In negative balance noted on SUHAIL reviewed. Reviewed vitals, electrolytes, acid-base, renal function, liver parameters. Reviewed nephrology documentation. Noted additional hemodialysis including with 4.25% dialysate. Discussed with case management manager. He otherwise does not appear in COPD exacerbation. CT angiogram chest reviewed, no sign of PE. Discussed with him. Troponin level has been elevated, appreciate cardiology assessment. Has been free of chest pain. (3) Hypoxia: As above. Continue oxygen support, monitor oxygenation. (4) High anion gap metabolic acidosis: Improving with peritoneal dialysis. In the setting of ESRD, recent adjustment in peritoneal dialysis, it appears previously once daily exchanges were inadequate. Suspect may be secondary to ESRD, however, he does have diabetes, will also check urine, serum ketones. (5) Troponin level elevated: Suspect secondary to demand ischemia. Appreciate cardiology assessment. (6) ESRD (end stage renal disease): Reviewed nephrology documentation. PD every 4 hours. He states would not want to start hemodialysis. Hoping peritoneal dialysis regimen can be adjusted to allow adequate dialysis, but understands that in some cases also peritoneal dialysis may not be adequate option for some patients. Nephrology consultation is placed. Plan Hypertension: States his medication has been changed recently, he has been started on nifedipine and no longer takes metoprolol or losartan. Needing Cardizem drip as above. Nifedipine stopped. Mild transaminitis, AST 46: Treat as above. Suspect secondary to congestive heart failure, reassess CMP. ANNE: Previously on CPAP. Currently in between machines. Nightly CPAP. COPD: Currently not in exacerbation. Breathing treatments. HTN: Monitor blood pressures, continue nifedipine Diabetes: Accu-Cheks. Sliding scale insulin, CC diet CAD, history of CABG History of CVA Other medical problems. Attestations Medical Necessity Statement*: Continue admission for assessment management of decompensated CHF, fluid overload with ESRD on peritoneal dialysis.? A-fib with RVR. Diagnoses Atrial fibrillation with RVR I48.91 Dyspnea R06.00 Hypoxia R09.02 High anion gap metabolic acidosis E87.29 Troponin level elevated R79.89 ESRD (end stage renal disease) N18.6
[2023-07-09 17:31] LABS: Glucose Point of Care 371 mg/dL (70-110)
[2023-07-09 20:09] LABS: Glucose Point of Care 340 mg/dL (70-110)
[2023-07-09] MEDS: dilTIAZem 30 mg Tablet 60 MG PO (21:02)
[2023-07-09] MEDS: ondansetron 2 mg/ML SDV 2 mL 4 MG IVP (21:06)
[2023-07-10] VITALS (28 sets, daily range): BP systolic 75–111; BP diastolic 50–67; PULSE 65–127; RESP 17–31; TEMP 36.4–36.9; O2SAT 90–99
[2023-07-10] MEDS: Dianeal low Ca w/2.5% dex 2,000 mL Bag 2500 ML INTRAPERIT ×3 (00:38→08:48)
[2023-07-10] MEDS: morphine IR 15 mg Tablet PO ×2 (01:41→06:25)
[2023-07-10] MEDS: dilTIAZem 30 mg Tablet 60 MG PO ×2 (03:52→08:40)
[2023-07-10] MEDS: dilTIAZem 100 MG in sodium chloride 0.9% (add-van) 100 ML 15 MG IV (03:53)
[2023-07-10 06:03] LABS: Basophils % 0.1 %; Eosinophils % 0.1 %; Hematocrit 35.4 % (37-53); Lymphocytes # 0.5 10^3/uL (0.8-4.8); Lymphocytes % 6.9 %; Mean Corpuscular HGB Conc 33.1 g/dL (30-55); Mean Corpuscular Hemoglobin 30.5 pg (27-33); Mean Corpuscular Volume 92.4 fl (82-101); Monocytes # 0.6 10^3/uL (0.2-0.9); Monocytes % 8.6 %; Neutrophils # 5.75 10^3/uL (1.8-7.7); Neutrophils % 83.9 %; Nucleated Red Blood Cells % 0 %; Platelet Count 224 10^3/cmm (157-399); Red Blood Count 3.83 10^6/uL (3.85-5.65); Red Cell Distribution Width 13.5 % (12.1-15.1); White Blood Count 6.86 10^3/uL (3.29-11.43)
[2023-07-10 06:15] LABS: Alanine Aminotransferase 34 U/L (0-41); Albumin Level 3.3 g/dL (3.5-5.2); Alkaline Phosphatase 62 U/L (40-130); Anion Gap 20.4 (5-19); Aspartate Amino Transferase 29 U/L (0-40); Blood Urea Nitrogen 57 mg/dL (8-23); Carbon Dioxide 21 mmol/L (22-29); Chloride 90 mmol/L (98-107); Globulin 2.2 g/dL (1.3-4.6); Glucose 370 mg/dL (65-115); Osmolality Calculated 295 mOsm/kg (285-295); Potassium 4.4 mmol/L (3.5-5.1); Sodium 127 mmol/L (136-145); Total Bilirubin 0.3 mg/dL (0.15-1.2); Total Protein 5.5 g/dL (6.6-8.7)
[2023-07-10] MEDS: aspirin 81 mg EC Tablet PO (06:21)
[2023-07-10] MEDS: sevelamer 800 mg Tablet PO ×3 (06:26→18:11)
[2023-07-10 07:21] LABS: Glucose Point of Care 437 mg/dL (70-110)
[2023-07-10] MEDS: sodium bicarbonate 650 mg Tablet PO ×3 (08:40→21:22)
[2023-07-10] MEDS: pantoprazole DR 40 mg Tablet PO (08:40)
[2023-07-10] MEDS: doxazosin 4 mg Tablet PO (08:41)
[2023-07-10] MEDS: isosorbide mononitrate ER 60 mg Tablet PO (08:41)
[2023-07-10] MEDS: insulin lispro 100 unit/1 mL SUBCUT ×3 (08:43→21:53)
[2023-07-10] MEDS: heparin 5,000 unit/mL INJ 1 mL 5000 UNIT SUBCUT ×2 (08:44→21:23)
--- NOTE | 2023-07-10 10:36 | PM.PN ---
Subjective Subjective: doing well net neg 2800 L Fl Vitals/I&O/Wt Last Vital Signs Temp 98.0 F 07/10/23 07:42 Pulse 115 H 07/10/23 08:00 Resp 18 07/10/23 08:00 BP 111/59 07/10/23 07:42 Pulse Ox 95 07/10/23 08:00 O2 Del Method Room Air 07/10/23 08:00 O2 Flow Rate 2 07/08/23 22:45 FiO2 2 07/07/23 23:15 07/09/23 07/10/23 07/10/23 22:59 06:59 14:59 Intake Total 3220 / 3510 4100 / 7610 333.75 / 333.75 Output Total 5300 / 7800 4000 / 12454 Balance -2080 / -4290 100 / -4190 333.75 / 333.75 Weight last 48 hrs Weight 72.802 kg Weight 72.802 kg Weight 75.024 kg Weight 75.024 kg Physical Exam Const: GENERAL APPEARANCE: frail appearing OTHER: awake , alert HEENT no edema 0n room air Data 07/10/23 04:53 07/10/23 04:53 A&P Assessment and plan (1) ESRD (end stage renal disease): Plan 1. ESRD on peritoneal dialysis 2. volume overload, CHF, possible uremia 3. hyperkalemia, metabolic acidosis, improved 4. Hyperglycemia, sliding scale regular insulin. Maintain BS < 200 to assist with UF via PD 5. Hyperphosphatemia, begin sevelemar (he was taking as outpatient) 6. Afib Rec: 2.5% PD 2500 ml solution Q6 h,, continue lasix , fluid restriction, renal diet Attestations Medical Necessity Statement*: per mediicne team Coding Level of Care Code Acute Code for Chg Fwd Diagnoses ESRD (end stage renal disease) N18.6
[2023-07-10] MEDS: metoprolol tartrate 25 mg Tablet PO (11:09)
[2023-07-10 12:07] LABS: Glucose Point of Care 184 mg/dL (70-110)
--- NOTE | 2023-07-10 14:55 | PC.NURSE ---
Hypotension, Heart is upper 60s to 70s afib Pt came back from the bathroom. he is pale, stated he is sob, dizzy and weak. HR is in upper 60s to 70s now, still afib rhythm. BP is in low 80s sytolic to 70s. checked manually and it is 79/50,MAP- 57-63. notified hospitalist thru telephone and he wrote orders to give 250 ml ns bolus and albumin. 3pm cardizem and metoprolol are held. will keep pt monitored.
--- NOTE | 2023-07-10 15:01 | PM.PN ---
Subjective Subjective: I saw patient again today on the request of Dr. Dr. Avila regarding improving management atrial fibrillation rate. I reviewed patient's chart, vitals current medical and the lab data. Patient is clinically stable from cardiovascular point of view however atrial fibrillation heart rate has been in the range of 100 to 130s. I note he was on them drip however his blood pressure dropped to less than 100 and subsequently he has been on oral Cardizem. This morning patient was also started on low-dose of beta-caise metoprolol 25 mg twice a day Clinically patient is very much stable with no active symptoms chest of angina or heart failure, however he does feel some a palpitation intermittently. Medications: Medication Review Details: Medications reviewed and made adjustment accordingly Vitals/I&O/Wt Last Vital Signs Temp 98.4 F 07/10/23 11:26 Pulse 120 H 07/10/23 11:26 Resp 31 H 07/10/23 11:26 BP 100/50 07/10/23 11:26 Pulse Ox 96 07/10/23 11:26 O2 Del Method Room Air 07/10/23 11:26 O2 Flow Rate 2 07/08/23 22:45 FiO2 2 07/07/23 23:15 07/10/23 07/10/23 07/10/23 06:59 14:59 22:59 Intake Total 4100 / 7610 333.75 / 333.75 Output Total 4000 / 19141 Balance 100 / -4190 333.75 / 333.75 Weight last 48 hrs Weight 160 lb 8 oz Weight 160 lb 8 oz Weight 165 lb 6.4 oz Weight 165 lb 6.4 oz Physical Exam Narrative: Patient is comfortable no acute distress Heart rate 116 atrial fibrillation, blood pressure 102/70 JVP not raised Lungs clear to auscultate Card exam: normal first and second heart sounds there is systolic murmur of mild MR, irregularly irregular pulse atrial fibrillation Abdominal: Patient is on peritoneal dialysis with abdominal follow-up with the peritoneal fluid Extremities: No pedal edema Skin: Dry and warm Neuro: intact grossly Data 07/10/23 04:53 07/10/23 04:53 A&P Assessment and plan (1) Atrial fibrillation with RVR: Plan 72-year-old male patient with a history of chronic renal failure on peritoneal dialysis now atrial fibrillation rate is not well-controlled. Additionally patient blood pressure is on the lower side specially when he is on Cardizem drip. Clinically no angina or any active heart failure symptoms I recommend following 1. Discontinue Cardura, this way his blood pressure will improve 2. I increased the dose of metoprolol from 25 twice daily to 25 3 times a day 3. Further medicine can be adjusted from tomorrow once his blood pressure get better. 4. I would preferably not to start him on amiodarone and manage him with rate control medication. 5. I am not sure if he is a good candidate for long-term anticoagulation considerably considering his overall comorbidities. I will discuss with his a medicine team. Attestations Medical Necessity Statement*: Atrial Fib with rapid ventricle rate Coding Level of Care Code Acute Code for [facility] Fwd Diagnoses Atrial fibrillation with RVR I48.91 Time Spent (min) 30
[2023-07-10] MEDS: albumin 25 G/100 ML BAG 60 G IV (15:26)
[2023-07-10] MEDS: sodium chloride 0.9% 250 ML IV (15:27)
[2023-07-10 16:32] LABS: Glucose Point of Care 111 mg/dL (70-110)
--- NOTE | 2023-07-10 16:55 | PC.NURSE ---
Notified Linen Worker that pt's sytolic BP is in 70s to 80s. 250 bolus of IV once and albumin, BP still low 83/56, map-65. asked her if we have to hold the dieaneal soln exchange? per doctor is it is okay to continue the exchanges.
[2023-07-10] MEDS: Dianeal low Ca w/2.5% dex 2,000 mL Bag 2000 ML INTRAPERIT ×2 (18:13→23:26)
--- NOTE | 2023-07-10 19:00 | PC.NURSE ---
shift note notified hospitalist of pt's current BP is still in 87/56 map-66. HR 84. telephone order received to hold metoprolol and cardizem tonight and notify doctor is MAP is still less than 65. Report [facility] off to [facility] nurse viviana.
--- NOTE | 2023-07-10 19:24 | P.PN_ITS ---
Subjective Subjective: Denies any new symptoms this morning. Heart rate persistently 100 teens-to mid to high 120s despite being at rest, despite Cardizem. Small amount of abdominal fullness, tenderness in the right side. Also noticed small amount of redness on superolateral right aspect of the PD catheter entry site. Vitals/I&O/Wt Last Vital Signs Temp 97.9 F 07/10/23 16:00 Pulse 83 07/10/23 16:00 Resp 31 H 07/10/23 11:26 BP 75/51 07/10/23 16:00 Pulse Ox 90 07/10/23 16:00 O2 Del Method Nasal Cannula 07/10/23 16:00 O2 Flow Rate 2 07/08/23 22:45 FiO2 2 07/07/23 23:15 07/10/23 07/10/23 07/10/23 06:59 14:59 22:59 Intake Total 4100 / 7610 687.75 / 687.75 350 / 1037.75 Output Total 4000 / 51796 Balance 100 / -4190 687.75 / 687.75 350 / 1037.75 Weight last 48 hrs Weight 72.802 kg Weight 72.802 kg Weight 75.024 kg Weight 75.024 kg Physical Exam Narrative: Accompanied by family. Const: COMMON NORMALS: patient oriented x3 and alert GENERAL APPEARANCE: cooperative ORIENTATION/CONSCIOUSNESS: Yes awake HENMT: COMMON NORMALS: oropharynx normal Neck/C-Spine: COMMON NORMALS: no JVD Resp: COMMON NORMALS: normal respiratory effort and clear to auscultation bilaterally AUSCULTATION: clear to auscultation bilaterally and rales on the right at the base Cardio: COMMON NORMALS: no JVD, regular rhythm, S1 normal heart sound present, S2 normal heart sound present and No murmurs present (Cardio) RHYTHM: regular rhythm HEART SOUNDS: S1 normal heart sound present and S2 normal heart sound present GI: COMMON NORMALS: Normal to inspection, nondistended, normoactive bowel sounds present, Soft to palpation and non-tender PALPATION: Yes Soft to palpation OTHER: Minimal/faint erythema at superolateral right aspect of PD catheter entry. No drainage. Back/Pelvis: GENERAL BACK: Yes swelling (1+. Improving.) Extremity: COMMON NORMALS: no joint enlargement Neuro: COMMON NORMALS: patient oriented x3 and moves all extremities SENSORIUM/ORIENTATION: Yes alert Skin: COMMON NORMALS: no rashes or lesions noted GENERAL SKIN EXAM: no rashes or lesions noted Data 07/10/23 04:53 07/10/23 04:53 A&P Assessment and plan (1) Atrial fibrillation with RVR: Difficult to control atrial fibrillation with RVR, remaining tachycardic up into high 120s at rest despite Cardizem. On Cardizem drip, was started on oral Cardizem to assist tapering off Cardizem drip, heart, heart rate persistently elevated, remained on 15 milligrams per hour Cardizem. Cardizem drip stopped. Discussed with him options for additional treatment given persistent tachycardia risk of progression to tachycardia induced cardiomyopathy and other complications. Reviewed vitals, CBC, CMP. Considered amiodarone, however, as he has not been on anticoagulation discussed risk of conversion to sinus with risk of CVA, he preferred to avoid this option. Limited options otherwise, cannot use digoxin. Discussed with him consideration of trial of metoprolol. Added metoprolol 25 mg twice daily. Subsequently later in the afternoon heart rates improved, however, blood pressure is low, discussed with nephrology, given bolus 250 mL, bag of albumin, so far maintaining maps above 65 mmHg, continue to monitor. Hold evening doses of medications. Discussed with cardiology, appreciate assessment, Cardura was stopped. Bedrest for now. Risk of shock. Continue to monitor blood pressures. (2) Dyspnea: Dyspnea has shown improvement. On room air. Appreciate nephrology assessment, reviewed documentation. He otherwise does not appear in COPD exacerbation. CT angiogram chest reviewed, no sign of PE. Discussed with him. Troponin level has been elevated, appreciate cardiology assessment. Has been free of chest pain. (3) Hypoxia: As above. Continue oxygen support, monitor oxygenation. (4) High anion gap metabolic acidosis: Improving with peritoneal dialysis. In the setting of ESRD, recent adjustment in peritoneal dialysis, it appears previously once daily exchanges were inadequate. Suspect may be secondary to ESRD, however, he does have diabetes, will also check urine, serum ketones. (5) Troponin level elevated: Suspect secondary to demand ischemia. Appreciate cardiology assessment. (6) ESRD (end stage renal disease): Reviewed nephrology documentation. PD every 4 hours. He states would not want to start hemodialysis. Hoping peritoneal dialysis regimen can be adjusted to allow adequate dialysis, but understands that in some cases also peritoneal dialysis may not be adequate option for some patients. Nephrology consultation is placed. Plan Hypertension: States his medication has been changed recently, he has been started on nifedipine and no longer takes metoprolol or losartan. Needing Cardizem drip as above. Nifedipine stopped. Mild transaminitis, AST 46: Treat as above. Suspect secondary to congestive heart failure, reassess CMP. ANNE: Previously on CPAP. Currently in between machines. Nightly CPAP. COPD: Currently not in exacerbation. Breathing treatments. HTN: Monitor blood pressures, continue nifedipine Diabetes: Accu-Cheks. Sliding scale insulin, CC diet CAD, history of CABG History of CVA Other medical problems. Attestations Medical Necessity Statement*: Continue admission for assessment management of difficult to control A-fib with RVR, hypotension, CHF, and a gentleman with underlying ESRD on PD. Diagnoses Atrial fibrillation with RVR I48.91 Dyspnea R06.00 Hypoxia R09.02 High anion gap metabolic acidosis E87.29 Troponin level elevated R79.89 ESRD (end stage renal disease) N18.6
[2023-07-10 21:26] LABS: Glucose Point of Care 275 mg/dL (70-110)
[2023-07-11] VITALS (10 sets, daily range): BP systolic 78–116; BP diastolic 51–75; PULSE 73–115; RESP 11–43; TEMP 36.4–36.7; O2SAT 92–100
[2023-07-11 03:06] LABS: Basophils % 0.2 %; Eosinophils # 0.1 10^3/uL (0.0-0.8); Eosinophils % 1.6 %; Hematocrit 36.3 % (37-53); Lymphocytes # 0.5 10^3/uL (0.8-4.8); Mean Corpuscular HGB Conc 32.2 g/dL (30-55); Mean Platelet Volume 10.9 fL (7.4-10.4); Monocytes # 0.6 10^3/uL (0.2-0.9); Neutrophils # 5.13 10^3/uL (1.8-7.7); Neutrophils % 80.9 %; Nucleated Red Blood Cells % 0 %; Platelet Count 177 10^3/cmm (157-399); Red Blood Count 3.78 10^6/uL (3.85-5.65); Red Cell Distribution Width 13.7 % (12.1-15.1); White Blood Count 6.34 10^3/uL (3.29-11.43)
[2023-07-11 03:24] LABS: Magnesium 2.1 mg/dL (1.7-2.3)
[2023-07-11 03:32] LABS: Blood Urea Nitrogen 57 mg/dL (8-23); Calcium 8.9 mg/dL (8.5-10.5); Carbon Dioxide 27 mmol/L (22-29); Chloride 90 mmol/L (98-107); Glucose 243 mg/dL (65-115); Osmolality Calculated 292 mOsm/kg (285-295); Sodium 129 mmol/L (136-145)
[2023-07-11 03:33] LABS: Anion Gap 17.2 (5-19); Potassium 5.2 mmol/L (3.5-5.1)
[2023-07-11] MEDS: dilTIAZem 30 mg Tablet 60 MG PO (04:44)
[2023-07-11] MEDS: Dianeal low Ca w/2.5% dex 2,000 mL Bag 2000 ML INTRAPERIT ×4 (04:46→22:47)
[2023-07-11] MEDS: morphine IR 15 mg Tablet PO (05:33)
[2023-07-11] MEDS: aspirin 81 mg EC Tablet PO (05:33)
[2023-07-11] MEDS: sevelamer 800 mg Tablet PO ×3 (06:22→17:36)
[2023-07-11 06:43] LABS: Glucose Point of Care 269 mg/dL (70-110)
[2023-07-11] MEDS: insulin lispro 100 unit/1 mL SUBCUT ×3 (09:22→22:45)
[2023-07-11] MEDS: pantoprazole DR 40 mg Tablet PO (09:23)
[2023-07-11] MEDS: sodium bicarbonate 650 mg Tablet PO ×3 (09:23→21:37)
[2023-07-11] MEDS: heparin 5,000 unit/mL INJ 1 mL 5000 UNIT SUBCUT ×2 (09:24→21:38)
[2023-07-11] MEDS: metoprolol tartrate 25 mg Tablet PO ×3 (09:34→21:37)
[2023-07-11 12:47] LABS: Glucose Point of Care 339 mg/dL (70-110)
[2023-07-11] MEDS: lactulose oral liq 20 gm/30 mL UDC PO (13:38)
[2023-07-11] MEDS: sodium polystyrene sulfonate 15 gm/60 mL Btl 30 GM PO (13:38)
--- NOTE | 2023-07-11 16:44 | PM.PN ---
Subjective Subjective: BP low Medications: Reviewed: Yes Vitals/I&O/Wt Last Vital Signs Temp 98.0 F 07/11/23 16:28 Pulse 80 07/11/23 16:28 Resp 16 07/11/23 16:28 BP 116/72 07/11/23 16:28 Pulse Ox 94 07/11/23 16:28 O2 Del Method Nasal Cannula 07/11/23 16:28 O2 Flow Rate 2 07/11/23 08:00 FiO2 2 07/07/23 23:15 07/11/23 07/11/23 07/11/23 06:59 14:59 22:59 Intake Total 4194.981 / 8368.731 816 / 816 Output Total 4600 / 7000 Balance -405.019 / 1368.731 816 / 816 Weight last 48 hrs Weight 75.886 kg Weight 72.802 kg Weight 72.802 kg Weight 75.024 kg Physical Exam Const: GENERAL APPEARANCE: frail appearing OTHER: awake , alert HEENT no edema Data 07/11/23 02:35 07/11/23 02:35 A&P Assessment and plan (1) ESRD (end stage renal disease): Plan 1. ESRD on peritoneal dialysis 2. volume overload, CHF, possible uremia 3. hyperkalemia, metabolic acidosis, improved 4. Hyperglycemia, sliding scale regular insulin. Maintain BS < 200 to assist with UF via PD 5. Hyperphosphatemia, begin sevelemar (he was taking as outpatient) 6. Afib Rec: 2.5% PD 2500 ml solution Q6 h,, fluid restriction, renal diet Attestations Medical Necessity Statement*: per [facility] team Coding Level of Care Code Acute Code for [facility] Fwd Diagnoses ESRD (end stage renal disease) N18.6
[2023-07-11 17:56] LABS: Glucose Point of Care 97 mg/dL (70-110)
--- NOTE | 2023-07-11 18:53 | P.PN_ITS ---
Subjective Subjective: Reports he is doing all right, although it was not the best mood as he received in her diet was not to his liking.? This was replaced with a different meal and he is doing better now.? Breathing has been better.? Denies chest pain or pressure. Vitals/I&O/Wt Last Vital Signs Temp 98.0 F 07/11/23 16:28 Pulse 74 07/11/23 17:34 Resp 43 H 07/11/23 17:34 BP 109/57 07/11/23 17:34 Pulse Ox 100 07/11/23 17:34 O2 Del Method Nasal Cannula 07/11/23 16:28 O2 Flow Rate 2 07/11/23 08:00 FiO2 2 07/07/23 23:15 07/11/23 07/11/23 07/11/23 06:59 14:59 22:59 Intake Total 4194.981 / 8368.731 816 / 816 Output Total 4600 / 7000 Balance -405.019 / 1368.731 816 / 816 Weight last 48 hrs Weight 75.886 kg Weight 72.802 kg Weight 72.802 kg Physical Exam Const: COMMON NORMALS: patient oriented x3 and alert GENERAL APPEARANCE: cooperative ORIENTATION/CONSCIOUSNESS: Yes awake HENMT: COMMON NORMALS: oropharynx normal Neck/C-Spine: COMMON NORMALS: no JVD Resp: COMMON NORMALS: normal respiratory effort and clear to auscultation bilaterally AUSCULTATION: clear to auscultation bilaterally and rales on the right at the base Cardio: COMMON NORMALS: no JVD, regular rhythm, S1 normal heart sound present, S2 normal heart sound present and No murmurs present (Cardio) RHYTHM: regular rhythm HEART SOUNDS: S1 normal heart sound present and S2 normal heart sound present GI: COMMON NORMALS: Normal to inspection, nondistended, normoactive bowel sounds present, Soft to palpation and non-tender PALPATION: Yes Soft to palpation OTHER: Minimal/faint erythema at superolateral right aspect of PD catheter entry. No drainage. Back/Pelvis: GENERAL BACK: Yes swelling (Trace. Improving.) Extremity: COMMON NORMALS: no joint enlargement Neuro: COMMON NORMALS: patient oriented x3 and moves all extremities SENSORIUM/ORIENTATION: Yes alert Skin: COMMON NORMALS: no rashes or lesions noted GENERAL SKIN EXAM: no rashes or lesions noted Data 07/11/23 02:35 07/11/23 18:13 A&P Assessment and plan (1) Atrial fibrillation with RVR: Difficult to control A-fib with RVR, heart rates currently controlled with metoprolol. Blood pressure has been soft, history given small bolus 250 mL saline and albumin infusion. Her Cardizem has been discontinued. Blood pressures have gradually improved. Dialysis frequency and dialysate concentrate have been decreased. Reviewed cardiology note. Continue metoprolol. Risk of hypotension/shock, endorgan injury. Monitor heart rate. Blood pressures. Reviewed CBC, BMP. Magnesium. Elevated [id number] score. Cardiology considering anticoagulation but have reservations, please touch base prior to discharge. (2) Dyspnea: Dyspnea has shown improvement. On room air. Reviewed nephrology note. Dialysis frequency and dialysis concentration decreased. Continue PD. He otherwise does not appear in COPD exacerbation. CT angiogram chest reviewed, no sign of PE. Discussed with him. Troponin level has been elevated, appreciate cardiology assessment. Has been free of chest pain. (3) ESRD (end stage renal disease): Reviewed chemistry, sodium, acid-base, BUN, creatinine. Continue PD. Small spot of erythema at PD catheter entry will need to be followed up, discussed with burn crew member. Reviewed nephrology documentation. He states would not want to start hemodialysis. Hoping peritoneal dialysis regimen can be adjusted to allow adequate dialysis, but understands that in some cases also peritoneal dialysis may not be adequate option for some patients. Nephrology consultation is placed. (4) Hypoxia: As above. Continue oxygen support, monitor oxygenation. (5) High anion gap metabolic acidosis: Resolved. In the setting of ESRD, recent adjustment in peritoneal dialysis, it appears previously once daily exchanges were inadequate. Suspect may be secondary to ESRD, however, he does have diabetes, will also check urine, serum ketones. (6) Troponin level elevated: Suspect secondary to demand ischemia. Appreciate cardiology assessment. Plan Hypotension: Hypotension improving. Oral Cardizem stopped. Decrease frequency of dialysis and consideration of dialysate. Continue metoprolol. Mild transaminitis, AST 46: Treat as above. Suspect secondary to congestive heart failure, reassess CMP. ANNE: Previously on CPAP. Currently in between machines. Nightly CPAP. COPD: Currently not in exacerbation. Breathing treatments. HTN: Monitor blood pressures, off nifedipine. Metoprolol Diabetes: Accu-Cheks. Sliding scale insulin, CC diet CAD, history of CABG History of CVA Other medical problems. Attestations Medical Necessity Statement*: Continue admission for optimization of difficult control atrial fibrillation therapeutic regimen, complicated by hypotension, optimization of decompress CHF and [place] with peritoneal dialysis with loss of urine output, additional comorbidities as above. Diagnoses Atrial fibrillation with RVR I48.91 Dyspnea R06.00 ESRD (end stage renal disease) N18.6 Hypoxia R09.02 High anion gap metabolic acidosis E87.29 Troponin level elevated R79.89
[2023-07-11 19:11] LABS: Anion Gap 16.7 (5-19); Blood Urea Nitrogen 55 mg/dL (8-23); Calcium 9.1 mg/dL (8.5-10.5); Carbon Dioxide 27 mmol/L (22-29); Chloride 90 mmol/L (98-107); Glucose 105 mg/dL (65-115); Osmolality Calculated 285 mOsm/kg (285-295); Potassium 3.7 mmol/L (3.5-5.1); Sodium 130 mmol/L (136-145)
[2023-07-11 21:38] LABS: Glucose Point of Care 243 mg/dL (70-110)
[2023-07-12] VITALS: BP 111/57; PULSE 70; RESP 21
--- NOTE | 2023-07-12 02:06 | W.PM.EVENTAC ---
Event Notes Attestations Time Spent in Patient Care: CODE KENNEDY was called when patient was found on the floor by the csu nurse As per the nursing report patient was using bedside commode quite frequently but wanted to go to the bathroom When nurse checked on him next time he was found on the floor unconscious, CODE KENNEDY was called patient was pulseless, CPR was started on the floor It is unknown For how long he was unconscious on the floor ACLS protocol was followed ER intubated the patient We were able to get IO access to push epinephrine with chest compressions He was given multiple doses of epinephrine, bicarb and 1 dose of calcium chloride, After 2 shocks for V-fib he was given 300 mg of amiodarone Chart reviewed showed magnesium of 2, potassium 3.7 this morning Family was approached, daughter requested to stop the chest compressions and resuscitative measures Time of 2:01 AM 07/12 summary to be done by the attending physician Dr. Avila
[2023-07-12 02:25] LABS: Glucose Point of Care 170 mg/dL (70-110)
--- NOTE | 2023-07-12 02:43 | PC.NURSE ---
Pt is not candidate for MTS or [facility] present for family
--- NOTE | 2023-07-12 03:10 | PC.NURSE ---
late entry, patient had been having frequent bms throughout the night after receiving lactulose and kayexolate, patient called out to use restroom appx 0120, patient wanted to use restroom and not bedside commode, when this nurse went to check on patient, opened the door to restroom and found patient unresponsive on floor in front of commode, code blue called appx 0150, see code sheet, patient's daughter called and requested we stop the code, time of 0201, post mortum care performed, daughter came and removed patient's ring, watch, and tags, and took patient's belongings with her, [facility] called by torin Jaimes, patient ruled out for donation (ref # [id number]), [facility] called per daughter's request
--- NOTE | 2023-07-19 12:21 | P.DES_ITS ---
Discharge Providers DDS Date of Admission: 07/07/23 20:04 Date Summary Completed: 07/19/23 Attending Provider at Admission: Veto Avila Attending Provider at Discharge: Veto Avila Primary Care Provider: Elias Conteh MD DS Diagnoses Hospital Diagnoses (1) Atrial fibrillation with RVR: (2) Dyspnea: (3) ESRD (end stage renal disease): Permanent Problem Comments: Peritoneal dialysis (4) Hypoxia: (5) High anion gap metabolic acidosis: (6) Troponin level elevated: Reason for Visit Reason for Visit SOB Summary Summary Summary: Very pleasant 72-year-old gentleman [employer] with history of right lung/chest shrapnel injury, CABG, DM2, CVA possible COPD, HTN, ESRD on peritoneal dialysis, recently with adjustment of dialysis, initially with decreased frequency, but subsequently having increased frequency as he had been feeling more short of breath in the preceding week, worsening and significantly so in the preceding 2 days prior to hospitalization, on presentation newly requiring oxygen support due to hypoxia, orthopnea, with noted fluid overload, metabolic acidosis, hyperkalemia. Incidentally noted abnormal D-dimer, no PE noted on CT angiogram. Troponin elevation presentation in mid 200s. Has remained free of chest pain. TTE was assessed. Was assessed by cardiology, which assessment studies found for elevation secondary to end-stage kidney disease, heart failure decompensation. During hospitalization was also managed for atrial fibrillation with RVR which responded to metoprolol. Required increased frequency of peritoneal dialysis, recently has been more oliguric with progression of renal failure and doing the urine output, seen by nephrology, with dialysis fluid overload, renal parameters, overall with slow but gradual improvement. On 07/12 found down after using the restroom with cardiopulmonary arrest, resuscitation attempted with CPR and was intubated, however, ROSC was not achieved and resuscitative efforts were discontinued on consultation with family. Additional Data Advance directives?: No Discharge Plan Discharge Patient Disposition: Condition: Stable Prescriptions: No Action furosemide 40 mg tablet 40 mg PO QAM aspirin 81 mg Tablet,Delayed Release (Dr/Ec) 81 mg PO QAM spironolactone 25 mg tablet 25 mg PO BID doxazosin 8 mg tablet 4 mg PO BID clonidine HCl 0.3 mg Tablet 0.3 mg PO BEDTIME PRN (Reason: Blood Pressure) nitroglycerin [Nitrostat] 0.4 mg Tablet, Sublingual 0.4 mg SUBLINGUAL Q5M PRN (Reason: Chest Pain) Rx Instructions: do not exceed 3 doses per episode RenaPlex-D 800 mcg-12.5 mg -2,000 unit tablet 1 tab PO DAILY Rx Instructions: after dialysis famotidine 40 mg Tablet 20 mg PO DAILY sodium bicarbonate 650 mg Tablet 650 mg PO DAILY pantoprazole 40 mg Tablet,Delayed Release (Dr/Ec) 40 mg PO DAILY nifedipine 60 mg Tablet Extended Release 60 mg PO BID Referrals: Elias Conteh MD [Primary Care Provider] - DS Attestations 2 Time Spent in /Discharge Care*: greater than 30 min Quality - AMI: AMI present?: No Quality - Stroke: CVA present?: No Quality - VTE: VTE present?: No Coding Level of Care Code 93768 Total time (in minutes) for Discharge: 40 Diagnoses Atrial fibrillation with RVR I48.91 Dyspnea R06.00 ESRD (end stage renal disease) N18.6 Hypoxia R09.02 High anion gap metabolic acidosis E87.29 Troponin level elevated R79.89
== END 2023-07-12 04:19 | disposition expired | DRG 291 ==
LOC: ER 18:14 → CSU 20:04
PROVIDERS: Hospitalist; Internal Medicine; Admitting Provider Internal Medicine; Emergency Provider Internal Medicine; PCP Family Medicine; Visit Provider Internal Medicine
DX: I13.2 Hypertensive heart and chronic kidney disease with heart failure and with stage 5 chronic kidney disease, or end stage renal disease (principal); I50.23 Acute on chronic systolic (congestive) heart failure; N18.6 End stage renal disease; E87.20 Acidosis, unspecified; I24.89 Other forms of acute ischemic heart disease; E11.22 Type 2 diabetes mellitus with diabetic chronic kidney disease; E11.65 Type 2 diabetes mellitus with hyperglycemia; Z99.2 Dependence on renal dialysis; I25.10 Atherosclerotic heart disease of native coronary artery without angina pectoris; Z95.1 Presence of aortocoronary bypass graft; J44.9 Chronic obstructive pulmonary disease, unspecified; Z86.73 Personal history of transient ischemic attack (TIA), and cerebral infarction without residual deficits; E78.5 Hyperlipidemia, unspecified; K21.9 Gastro-esophageal reflux disease without esophagitis; Z86.19 Personal history of other infectious and parasitic diseases; E11.40 Type 2 diabetes mellitus with diabetic neuropathy, unspecified; G47.33 Obstructive sleep apnea (adult) (pediatric); Z99.89 Dependence on other enabling machines and devices; H54.61 Unqualified visual loss, right eye, normal vision left eye; E87.5 Hyperkalemia; R09.02 Hypoxemia; E83.39 Other disorders of phosphorus metabolism; I45.10 Unspecified right bundle-branch block; R00.0 Tachycardia, unspecified; R74.01 Elevation of levels of liver transaminase levels; I95.9 Hypotension, unspecified; I48.91 Unspecified atrial fibrillation; I49.01 Ventricular fibrillation
CPT/HCPCS: 12345; 36415; 36416; 51798; 71045; 71275; 80048; 80053; 81001; 82009; 82962; 83735; 83880; 84100; 84484; 85025; 85378; 85610; 87486; 87581; 87633; 93005; 93010; 94640; 94664; 96365; 96372; 96375; 96376; 99285; A4222; J0283; J0612; J1644; J1815; J1940; J2270; J2405; J3490; J7050; J7613; P9046; Q3014; Q9967